=== PATIENT | male | born 1940 | race Caucasian/White ===

== ENCOUNTER 2019-09-16 07:41 | Outpatient (CLI) | payer MEDICARE, SELFPAY ==
[2019-09-16 08:43] LABS: Blood Urea Nitrogen 34 mg/dL (9-20); Calcium 9.7 mg/dL (8.4-10.2); Carbon Dioxide 28 mmol/L (22-30); Chloride 100 mmol/L (98-107); Estimated Glomerular Filt Rate 45; Glucose 93 mg/dL (75-110); Potassium 4.1 mmol/L (3.4-5.0); Sodium 137 mmol/L (137-145)
[2019-09-16 08:56] LABS: Hemoglobin A1C 6.2 % (<5.7)
== END 2019-09-16 07:42 | disposition home or self-care (01) ==
PROVIDERS: PCP Internal Medicine; Visit Provider Internal Medicine
DX: R73.03 Prediabetes (principal); I10 Essential (primary) hypertension
CPT/HCPCS: 36415; 80048; 83036

== ENCOUNTER 2019-09-26 10:30 | Outpatient (CLI) | payer MEDICARE, SELFPAY ==
--- NOTE | ~2019-09-26 | US_ITS ---
EXAMINATION: US venous doppler [facility] DATE: 09/26/2019 11:17 INDICATION: Lower limb edema. TECHNIQUE: Grayscale ultrasound images without and with compression and Doppler ultrasound images of the bilateral lower extremity veins were obtained. COMPARISON: None. FINDINGS: The visualized portions of right common femoral vein, profunda (deep) femoral vein, femoral vein, pop liteal vein, peroneal veins, posterior tibial veins, and greater saphenous vein outflow are patent. The visualized portions of left common femoral vein, profunda femoral vein, femoral vein, popliteal v ein, peroneal veins, posterior tibial veins, and greater saphenous vein outflow are patent. IMPRESSION: 1. No deep venous thrombosis. Reviewed, dictated and finalized at location A. JOCKEY
== END 2019-09-26 10:31 | disposition home or self-care (01) ==
PROVIDERS: PCP Internal Medicine; Visit Provider Internal Medicine
DX: R60.9 Edema, unspecified (principal)
CPT/HCPCS: 93970

== ENCOUNTER 2019-09-30 06:43 | Outpatient (CLI) | payer MEDICARE, SELFPAY ==
[2019-09-30 08:03] LABS: Blood Urea Nitrogen 46 mg/dL (9-20); Calcium 9.2 mg/dL (8.4-10.2); Carbon Dioxide 25 mmol/L (22-30); Chloride 108 mmol/L (98-107); Estimated Glomerular Filt Rate 39; Glucose 105 mg/dL (75-110); Potassium 4.7 mmol/L (3.4-5.0); Sodium 142 mmol/L (137-145)
== END 2019-09-30 06:44 | disposition home or self-care (01) ==
PROVIDERS: PCP Internal Medicine; Visit Provider Internal Medicine
DX: I10 Essential (primary) hypertension (principal)
CPT/HCPCS: 36415; 80048

== ENCOUNTER 2019-10-03 14:39 | Outpatient (CLI) | payer MEDICARE, SELFPAY ==
[2019-10-03 15:16] LABS: Blood Urea Nitrogen 45 mg/dL (9-20); Calcium 9.7 mg/dL (8.4-10.2); Carbon Dioxide 28 mmol/L (22-30); Chloride 103 mmol/L (98-107); Estimated Glomerular Filt Rate 49; Glucose 118 mg/dL (75-110); Potassium 4.8 mmol/L (3.4-5.0); Sodium 142 mmol/L (137-145)
== END 2019-10-03 14:40 | disposition home or self-care (01) ==
PROVIDERS: PCP Internal Medicine; Visit Provider Internal Medicine
DX: R60.9 Edema, unspecified (principal)
CPT/HCPCS: 36415; 80048

== ENCOUNTER 2019-10-16 07:00 | Outpatient (CLI) | payer MEDICARE, SELFPAY ==
[2019-10-16 08:09] LABS: Blood Urea Nitrogen 51 mg/dL (9-20); Calcium 9.3 mg/dL (8.4-10.2); Carbon Dioxide 31 mmol/L (22-30); Chloride 101 mmol/L (98-107); Estimated Glomerular Filt Rate 53; Glucose 77 mg/dL (75-110); Potassium 4.5 mmol/L (3.4-5.0); Sodium 142 mmol/L (137-145)
== END 2019-10-16 07:01 | disposition home or self-care (01) ==
LOC: ANHLAB 07:04
PROVIDERS: PCP Internal Medicine; Visit Provider Internal Medicine
DX: R60.9 Edema, unspecified (principal)
CPT/HCPCS: 36415; 80048

== ENCOUNTER 2020-02-02 07:40 | Outpatient (RCR) | payer MEDICARE, SELFPAY ==
[2020-01-26 10:32] VITALS: BMI 36.1
== END 2020-03-17 10:58 | disposition home or self-care (01) ==
LOC: ANHWOC 07:40
PROVIDERS: PCP Internal Medicine; Visit Provider Nurse Practitioner
DX: I87.2 Venous insufficiency (chronic) (peripheral) (principal); L97.819 Non-pressure chronic ulcer of other part of right lower leg with unspecified severity
CPT/HCPCS: 99212; G0463

== ENCOUNTER 2020-02-16 08:24 | Outpatient (CLI) | payer MEDICARE, SELFPAY ==
--- NOTE | ~2020-02-16 | XR_ITS ---
EXAMINATION: XR tibia fibula RT 2V EXAM DATE: 02/16/2020 08:46 INDICATION: Chronic osteomyelitis right tibia/fibula. TECHNIQUE: Right tibia/fibula frontal and lateral projections obtained and reviewed. Correlation is m matthew to right knee exam 06/29/2011. FINDINGS: There is a bandage overlying the right foot and and ankle, density small posterior and inf erior calcaneal spur. There are no bony erosions identified. Meniscal chondrocalcinosis, and moderate right knee osteoarthritis. Obscuring some of the bony and soft tissue details. IMPRESSION: No acute osseous findings. Reviewed, dictated and finalized at location B. IMPRESSION: No acute osseous findings.
== END 2020-02-16 08:25 | disposition home or self-care (01) ==
LOC: ANHIMG 08:31
PROVIDERS: PCP Internal Medicine; Visit Provider Specialist
DX: M86.661 Other chronic osteomyelitis, right tibia and fibula (principal)
CPT/HCPCS: 73590

== ENCOUNTER 2020-04-16 08:54 | Outpatient (CLI) | payer MEDICARE, SELFPAY ==
[2020-04-16 09:35] LABS: Anion Gap 5 mmol/L (8-16); Blood Urea Nitrogen 48 mg/dL (9-20); Calcium 9.6 mg/dL (8.4-10.2); Carbon Dioxide 30 mmol/L (22-30); Chloride 106 mmol/L (98-107); Cholesterol 148 mg/dL (0-200); Estimated Glomerular Filt Rate 42; Glucose 112 mg/dL (75-110); HDL Direct 42 mg/dL; Potassium 4.7 mmol/L (3.4-5.0); Sodium 141 mmol/L (137-145); Triglycerides 175 mg/dL (<150)
[2020-04-16 09:45] LABS: LDL Cholesterol Direct 81 mg/dL
[2020-04-16 10:09] LABS: Hemoglobin A1C 6.2 % (<5.7)
== END 2020-04-16 08:55 | disposition home or self-care (01) ==
LOC: ANHLAB 08:57
PROVIDERS: PCP Internal Medicine; Visit Provider Internal Medicine
DX: I10 Essential (primary) hypertension (principal); R73.02 Impaired glucose tolerance (oral); Z13.220 Encounter for screening for lipoid disorders
CPT/HCPCS: 36415; 80048; 80061; 83036

== ENCOUNTER 2020-10-19 07:55 | Outpatient (CLI) | payer MEDICARE, SELFPAY ==
[2020-10-19 08:49] LABS: Anion Gap 4 mmol/L (8-16); Blood Urea Nitrogen 36 mg/dL (9-20); Calcium 9.5 mg/dL (8.4-10.2); Carbon Dioxide 32 mmol/L (22-30); Chloride 105 mmol/L (98-107); Estimated Glomerular Filt Rate 45; Glucose 160 mg/dL (75-110); Potassium 4.5 mmol/L (3.4-5.0); Sodium 141 mmol/L (137-145)
[2020-10-19 09:01] LABS: Hemoglobin A1C 6.2 % (<5.7)
== END 2020-10-19 07:56 | disposition home or self-care (01) ==
PROVIDERS: PCP Internal Medicine; Visit Provider Internal Medicine
DX: I10 Essential (primary) hypertension (principal); R73.02 Impaired glucose tolerance (oral)
CPT/HCPCS: 36415; 80048; 83036

== ENCOUNTER 2020-11-02 14:34 | Outpatient (CLI) | payer MEDICARE, SELFPAY ==
--- NOTE | ~2020-11-02 | XR_ITS ---
EXAMINATION: XR wrist RT min 3V DATE: 11/02/2020 14:58 INDICATION: Erythema and swelling at the right wrist. TECHNIQUE: Posteroanterior, ulnar deviation, oblique, and lateral views of the right wrist were obtai thea. COMPARISON: 06/22/2017 FINDINGS: Bone alignment is normal. No fracture. Chondrocalcinosis at the wrist including at the triangular fib rocartilage complex. Additional dystrophic calcifications at the radial aspect of the second and thir d metacarpophalangeal joints along the expected location of the radial collateral ligaments. Polyarti cular osteoarthritis, moderate severity at the distal radioulnar, wrist, first carpometacarpal, first metacarpophalangeal and first interphalangeal joints and mild at the midcarpal, triscaphe and second and third metacarpophalangeal joints. Again seen are chronic lucencies with thin sclerotic margins a t the head and neck of the first metacarpal, distal radius and at the radial aspect of the third meta carpal head. These could represent degenerative subchondral cysts however location appearance along w ith the presence of previously described dystrophic calcification suggests possibility of a crystalli ne arthropathy such as gout or calcium pyrophosphate deposition (CPPD) disease. Diffuse nonspecific s oft tissue swelling about the right wrist and visualized hand. IMPRESSION: 1. Moderate polyarticular osteoarthritis. 2. Constellation of findings including chondrocalcinosis, dystrophic soft tissue calcifications and s everal chronic lytic lesions suspicious for erosions together suggestive of a crystalline arthropathy such as gout or calcium pyrophosphate deposition (CPPD) disease. Reviewed, dictated and finalized at location B. IMPRESSION: 1. Moderate polyarticular osteoarthritis. 2. Constellation of findings including chondrocalcinosis, dystrophic soft tissu e calcifications and several chronic lytic lesions suspicious for erosions toge ther suggestive of a crystalline arthropathy such as gout or calcium pyrophosph ate deposition (CPPD) disease.
[2020-11-02 16:26] LABS: CRP 2.8 mg/dL (<1.0); Uric Acid 9.3 mg/dL (3.5-8.5)
[2020-11-02 16:33] LABS: Erythrocyte Sedimentation Rate 6 mm/hr (0-20)
== END 2020-11-02 14:35 | disposition home or self-care (01) ==
PROVIDERS: PCP Internal Medicine; Visit Provider Nurse Practitioner
DX: M25.439 Effusion, unspecified wrist (principal); M19.041 Primary osteoarthritis, right hand
CPT/HCPCS: 36415; 73110; 84550; 85652; 86140

== ENCOUNTER 2020-12-16 08:09 | Outpatient (CLI) | payer MEDICARE, SELFPAY ==
--- NOTE | ~2020-12-16 | US_ITS ---
EXAMINATION: US arterial ankle brachial ind DATE: 12/16/2020 09:26 INDICATION: Right lower leg ulcer. TECHNIQUE: Segmental pressures and plethysmographic and Doppler waveforms of the brachial and lower e xtremity arteries were obtained. COMPARISON: None. FINDINGS: Right and left brachial artery pressures of 138 mm Hg and 134 mm Hg, respectively, are concordant (no rmal difference <= 30 mmHg). The right ankle-brachial index (TAMI) is 1.02 (normal >= 0.9-1.0). The right great toe-brachial index (TBI) is 0.72 (normal >= 0.65). Arterial Doppler waveforms are biphasic at the ankle. The left TAMI is 1.06. The left TBI is 0.58. Arterial Doppler waveforms are biphasic at the ankle. IMPRESSION: 1. Mildly decreased left TBI and normal left TAMI, consistent with left-sided arterial occlusive disea se. Reviewed, dictated and finalized at location A. IMPRESSION: 1. Mildly decreased left TBI and normal left TAMI, consistent with left-sided ar terial occlusive disease.
== END 2020-12-16 08:10 | disposition home or self-care (01) ==
PROVIDERS: PCP Internal Medicine; Visit Provider Nurse Practitioner
DX: R60.0 Localized edema (principal); R09.89 Other specified symptoms and signs involving the circulatory and respiratory systems
CPT/HCPCS: 93922

== ENCOUNTER 2021-04-26 06:57 | Outpatient (CLI) | payer MEDICARE, SELFPAY ==
[2021-04-26 07:46] LABS: Alanine Aminotransferase 37 U/L (4-50); Albumin Level 3.8 g/dL (3.5-5.1); Alkaline Phosphatase 70 U/L (38-126); Anion Gap 6 mmol/L (8-16); Aspartate Amino Transferase 30 U/L (17-59); Bilirubin,Total 0.6 mg/dL (0.2-1.3); Blood Urea Nitrogen 58 mg/dL (9-20); Calcium 9.5 mg/dL (8.4-10.2); Carbon Dioxide 30 mmol/L (22-30); Chloride 104 mmol/L (98-107); Cholesterol 158 mg/dL (0-200); Estimated Glomerular Filt Rate 39; Glucose 127 mg/dL (65-110); HDL Direct 40 mg/dL; Potassium 4.5 mmol/L (3.4-5.0); Sodium 140 mmol/L (137-145); Triglycerides 161 mg/dL (<150)
[2021-04-26 07:56] LABS: LDL Cholesterol Direct 82 mg/dL
[2021-04-26 08:46] LABS: Hemoglobin A1C 6.6 % (<5.7)
== END 2021-04-26 06:58 | disposition home or self-care (01) ==
PROVIDERS: PCP Internal Medicine; Visit Provider Nurse Practitioner
DX: R73.02 Impaired glucose tolerance (oral) (principal); N18.30 Chronic kidney disease, stage 3 unspecified; E78.5 Hyperlipidemia, unspecified
CPT/HCPCS: 36415; 80053; 80061; 83036

== ENCOUNTER 2021-05-04 08:43 | Outpatient (CLI) | payer MEDICARE, SELFPAY ==
--- NOTE | ~2021-05-04 | XR_ITS ---
XR hip LT min 2V 05/04/2021 09:04 Indication: Left hip pain Procedure: 2 views left hip Comparison: No prior studies for comparison. Findings: There is severe osteoarthritis of the left hip with complete loss of joint space superiorly . There is subchondral cyst formation in the femoral head with prominent marginal osteophytes and loo se bodies adjacent to the joint space. No acute fracture. No subluxation. No significant soft tissue abnormality. Impression: 1: Severe osteoarthritis of the left hip. Reviewed, dictated and finalized at location A. Impression: 1: Severe osteoarthritis of the left hip.
== END 2021-05-04 08:44 | disposition home or self-care (01) ==
LOC: ANHIMG 08:45
PROVIDERS: PCP Internal Medicine; Visit Provider Nurse Practitioner
DX: M16.12 Unilateral primary osteoarthritis, left hip (principal)
CPT/HCPCS: 73502

== ENCOUNTER 2021-06-22 13:53 | Observation (INO) | payer MEDICARE, SELFPAY ==
--- NOTE | ~2021-06-22 | XR_ITS ---
EXAMINATION: XR sm bowel follow through WS EXAM DATE: 06/24/2021 16:29 INDICATION: Right lower quadrant pain, tenderness, diarrhea. Abnormal CT scan demonstrating pericecal inflammation. TECHNIQUE: Rn Chronic radiograph was acquired. Omnipaque/water soluble solution administered for small shantell wel exam performed by radiologist Jacky Willis M.D.. Spot images of the terminal ileum were acquired. Pulsed dose reduction fluoroscopy was used with fluoroscopic time of 0.1 minutes. The DAP for this procedure was 385 Gycm2. A total of 21 images obtained for the exam. Correlation is made to CT abdo men pelvis 06/22/2021. FINDINGS: Ileal and jejunal fold patterns are normal. Several jejunal diverticula identified. There is no small bowel wall thickening or mass effect displacing small bowel. There are no intraluminal filling defects identified. There is no small bowel dilation. Terminal ileum is normal in appearanc e. Contrast reached the colon between 15 and 30 minutes time, normal. CT demonstrated cecal/pericecal phlegmonous process. A normal appendix is not identified on the CT s can, nor is an abnormal dilated obstructed appendix. Terminal ileum unremarkable on this study. There fore, pathology the appendix should be considered, such as subacute appendicitis or carcinoid of the appendix. There is no right lower quadrant drainable abscess on that CT. Patient had IV antibiotics h anging with him for the procedure. Assuming he does better clinically, consider 2 week follow-up CT s can to reevaluate this phlegmonous process. IMPRESSION: Several jejunal diverticula. Otherwise unremarkable small bowel exam. See discussion abo ve. Reviewed, dictated and finalized at location A. IMPRESSION: Several jejunal diverticula. Otherwise unremarkable small bowel ex am. See discussion above.
--- NOTE | ~2021-06-22 | CT_ITS ---
EXAMINATION: CT abdomen pelvis wo con DATE: 06/22/2021 18:35 INDICATION: Right lower quadrant abdominal and flank pain for one week. Left hip pain for 6 months. TECHNIQUE: Computed tomography (CT) of the abdomen and pelvis was performed without intravenous contr ast. Automated exposure control and iterative reconstruction technique were employed. Exam dose: 158 6.19 mGy-cm total exam DLP. COMPARISON: 07/30/[address] scan. FINDINGS: There is multifocal bibasilar discoid atelectasis and/or scarring. Normal heart size. Marcelo nary artery calcifications. No pericardial or pleural effusion. Status post cholecystectomy. The liver, spleen, pancreas, adrenal glands are unremarkable. No bile duct or pancreatic duct dilata tion. 3.5 cm right renal exophytic cyst. At least two smaller right renal probable cysts are noted. Diffuse left renal atrophy and probable small left renal cysts. There is prostate enlargement. Multiple urinary bladder diverticula. Bilateral fat containing inguinal hernias, right greater than left. There is distal and terminal ileal irregularity and thickening with surrounding fat infiltration, wi th proximal small bowel air fluid levels. Consider Crohn's disease or other inflammatory or infectio us process, lymphoma, small bowel carcinoma. There are numerous diverticula of the sigmoid and descending colon; no evidence of diverticulitis. No bowel obstruction of intraperitoneal free air. Normal caliber of the abdominal aorta. No intraperitoneal or retroperitoneal or pelvic mass lesion o r lymphadenopathy or ascites. 1.3 x 2.4 cm osteosclerotic lesion of left side of T7. 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 Bilateral sacroiliac ankylosis. Bilateral severe hip osteoarthritis, left greater than right. IMPRESSION: Prominent inflammatory change at the distal and terminal ileum, with surrounding inflamm atory change; differential diagnosis includes Crohn's disease, other inflammatory or infectious proce ss, lymphoma, small bowel carcinoma. Reviewed, dictated and finalized at Location A. Reviewed, dictated and finalized at location A. IMPRESSION: Prominent inflammatory change at the distal and terminal ileum, wi th surrounding inflammatory change; differential diagnosis includes Crohn's dis ease, other inflammatory or infectious process, lymphoma, small bowel carcinoma .
[2021-06-22 15:51] VITALS: BP 138/72; PULSE 75; RESP 18; TEMP 36.1; O2SAT 100
[2021-06-22 16:07] LABS: Hematocrit 51.7 % (42.0-52.0); Hemoglobin 16.3 g/dL (14.0-18.0); Mean Corpuscular HGB Conc 31.5 g/dl (32-36); Mean Corpuscular Volume 98.5 fl (80-100); Mean Platelet Volume 10.6 fl (7.4-10.4); Platelet Count Result 201 k/mm3 (150-375); Red Blood Count 5.25 M/mm3 (4.6-6.20); Red Cell Distribution Width 16.8 % (11.5-14.5); White Blood Count 14.2 K/mm3 (4.5-10.0)
[2021-06-22 16:20] LABS: Alanine Aminotransferase 37 U/L (4-50); Albumin Level 3.7 g/dL (3.5-5.1); Alkaline Phosphatase 73 U/L (38-126); Anion Gap 8 mmol/L (8-16); Aspartate Amino Transferase 23 U/L (17-59); Bilirubin,Total 1.2 mg/dL (0.2-1.3); Blood Urea Nitrogen 47 mg/dL (9-20); Carbon Dioxide 27 mmol/L (22-30); Chloride 107 mmol/L (98-107); Estimated CRCL calculation 53 ml/min; Estimated Glomerular Filt Rate 49; Glucose 108 mg/dL (65-110); Lipase 41 U/L (23-300); Potassium 4.8 mmol/L (3.4-5.0); Sodium 142 mmol/L (137-145)
[2021-06-22 16:39] LABS: Band Neutrophils Percent 4 % (0-6); Lymphocytes Absolute Manual 0.56 K/mm3 (1.1-4.5); Metamyelocytes Percent 1 %; Monocytes Absolute Manual 0.28 K/mm3 (0.1-0.90); Monocytes Percent Manual 2 % (3-9); Neutrophils Percent Manual 89 % (46-73); Platelet Estimate Adequate (Adequate); Total Cells Counted 100; Toxic Granulation Present (NORMAL)
[2021-06-22 18:00] VITALS: BP 135/78; PULSE 97; RESP 18; TEMP 36.6; O2SAT 96
--- NOTE | 2021-06-22 18:23 | PC.NURSE ---
MD aware of elevated BUN and creatinine. Verbal order to cancel CT with contrast, order without contrast.
[2021-06-22 18:35] LABS: Add Urine Microscopic? YES; Appearance Urine Cloudy (Clear); Bilirubin Urine Negative (Negative); Blood Urine Negative (Negative); Color Urine Yellow (Yellow); Glucose Urine UA Negative (Negative); Ketones Urine Negative (Negative); Leukocyte Esterase Ur Negative LEU/UL (Negative); Mucus Urine Rare /lpf; Nitrate Urine Negative (Negative); Protein Urine Negative (Negative); Specific Grav Ur 1.018 (1.001-1.035); Squamous Epithelial Cell Urine Occasional /hpf (Few); Urobilinogen Urine Negative mg/dL (<2.0); WBC Urine 0-3 /hpf
--- NOTE | 2021-06-22 20:21 | ED.ABDPAIN ---
HPI - Abdominal Pain General Chief Complaint: Abdominal Pain Stated Complaint: hip and abd pain Time Seen by Provider: 06/22/21 17:40 Source: patient Mode of arrival: ambulatory Limitations: no limitations History of Present Illness HPI narrative: 80-year-old with a history of hypertension, diabetes, CKD, osteoarthritis of his left hip here with complaints of right lower abdominal pain for past 1 week. He denies any nausea, vomiting or diarrhea. No history of fever or chills. He states he has constant pain in his right lower abdomen. MD elicited complaint: abdominal pain Pertinent past history: none Onset (ago): week(s) (1) Location: RLQ Severity: moderate Quality: aching Radiation: none Migration to: no migration Exacerbating factors: nothing Relieving factors: nothing Related Data Home Medications Medication Instructions Recorded Confirmed aspirin 325 mg tablet,delayed 325 mg PO DAILY 09/17/19 05/04/21 release omega-3 fatty acids 1,000 mg 1,000 mg PO BID 09/17/19 05/04/21 capsule finasteride 5 mg tablet 5 mg PO DAILY 09/22/19 05/04/21 niacin 500 mg tablet 500 mg PO DAILY tablet 05/04/21 05/04/21 Allergies Allergy/AdvReac Type Severity Reaction Status Date / Time No Known Allergies Allergy Verified 06/22/21 18:07 Review of Systems Review of Systems: All systems reviewed & are unremarkable except as noted in HPI and below Constitutional: Constitutional: Reports no additional constitutional complaints Eyes: Eyes: Reports no additional eye complaints ENT: Reports system reviewed and no additional complaints, except as documented Cardiovascular: Cardiovascular: Reports no additional cardiovascular complaints Respiratory: Respiratory: Reports no additional respiratory complaints Gastrointestinal: Gastrointestinal: Reports as per HPI Genitourinary: Genitourinary: Reports no additional male genitourinary complaints Musculoskeletal: Musculoskeletal: Reports as per HPI Integumentary/Breasts: Skin/Breast: Reports system reviewed and no additional complaints, except as docu [facility] Past Medical History Medical History Carpal tunnel syndrome Edema Essential hypertension IGT (impaired glucose tolerance) Lesion of spleen Family History Family History Father Acute myocardial infarction Other Cerebrovascular accident Hypertension Social History Social History Smoking packs per day: 2 Smoking cigarettes per day: 40.0 Years smoked: 4 Smoking pack-years: 8.00 Smoking status: Former smoker Tobacco type: cigarettes Second hand tobacco smoke exposure: Yes Smoking end date: 08/20/1964 Alcohol intake: never Gender identity (if verbalized by the patient): Male Exam Narrative: GENERAL: Well-appearing, Obese, and in no acute distress. Very hard of hearing HEAD: Normocephalic, atraumatic. EYES: PERRLA and EOMI. NECK: Supple. CHEST: Clear to auscultation. No respiratory distress. HEART: Regular rate and rhythm. No murmur heard. Normal peripheral pulses. ABDOMEN: Truncal obesity is normal., No hernias noted, tenderness in the right lower abdomen. EXTREMITIES: Normal range of motion. No edema. SKIN: Warm, dry, no rash. NEURO: No focal deficits. Alert and oriented x3. PSYCH: Normal mood and affect. Course Course Emergency Course: Discussed with Dr. Lane as well as Dr. Pérez will see the patient in consult. Informed patient about his lab work, CT findings and is agreeable for admission. Discussed with hospitalist agreed to admit the patient. Vital Signs Vital signs: Vital Signs Temperature 36.1 C L 06/22/21 15:51 Pulse Rate 75 06/22/21 15:51 Respiratory Rate 18 06/22/21 15:51 Blood Pressure 138/72 06/22/21 15:51 Pulse Oximetry 100 06/22/21 15:51 Temperature 36.6 C 06/22/21 18:00 Pul
[2021-06-22] MEDS: SODIUM CHLORIDE 0.9% IV 1,000 ML 75 ML IV CONT (21:08)
--- NOTE | 2021-06-22 22:15 | PM.IMHP ---
H&P: HPI History of Present Illness Date/Time: 06/22/21 22:15 Chief Complaint: Right lower quadrant abdominal pain. Narrative: This is an 80-year-old male with history of hypertension, dyslipidemia, prediabetes, chronic kidney disease, and benign prostatic hyperplasia who presented to the emergency department earlier today via private vehicle from home for evaluation of right lower quadrant abdominal pain. He has had pain in his right lower quadrant for approximately 1 week and describes a constant aching pain in that area although he frequently has sharp shooting pains there as well. It is worse with movement, palpation, and going over bumps when riding in the car. He takes Tylenol for his chronic left hip pain due to severe osteoarthritis and unfortunately that has not provided him with much benefit. His appetite has not been great for a couple of days but he denies nausea and vomiting. He reports a normal bowel movement 2 days ago on Sunday. He has not had fever, chills, or sweats. No nausea or vomiting. He has not noticed blood or mucus in the stool. No significant abdominal distension. No significant belching or flatus. A CT of the abdomen pelvis done on arrival to the emergency department demonstrated prominent inflammatory change at the distal and terminal ileum with surrounding inflammatory changes with a differential diagnosis to include Crohn's disease, other inflammatory infectious process, lymphoma, or small bowel carcinoma. He denies sick contacts, recent travel, and recent antibiotic use. No personal or family history of inflammatory bowel disease. Weight has remained stable in fact he has gained some weight this year due to being less active as a result of his chronic hip pain. He does have a history of colon polyps with his last colonoscopy being approximately 10 years ago if not a bit longer. He has not noticed any blood or mucus in the stool. No lymphadenopathy. Review of Systems Review of Systems: Twelve systems were reviewed. No recent cold or flu symptoms. He denies headache. No vertigo. No chest pain or shortness of breath. No cough. He has had significant pain in his left hip which has gotten worse over the past 1 year. He now avoids steps and he has having pain when trying to get up into his truck. He needs to hold on to shopping carts when walking and does ambulate with a limp due to the pain. He has been taking Tylenol arthritis with only some benefit. He has not yet seen an orthopedic surgeon for possible replacement. No dysuria, hematuria, urgency, hesitancy, or urinary retention. Recent arterial ankle brachial index demonstrated mildly decreased left TBI abnormal left TAMI. The patient denies claudication. Except as documented, all other systems were reviewed and are negative. [facility] Past Medical History Medical History (Updated 06/22/21 @ 23:06 by Laina Petty PA-C) Actinic keratosis Benign prostatic hyperplasia Bilateral primary osteoarthritis of hip Bladder stones Chronic kidney disease, stage 3 Baseline creatinine ranges between 1.40 and 1.60. 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 History of transurethral resection of prostate History of ventral hernia repair (2005) Status post excision of lipoma Anterior abdominal wall. Family History Family History (Updated 06/22/21 @ 22:33 by Laina Petty PA-C) Father Acute myocardial infarction Mother Breast cancer Hypertension Si
--- NOTE | 2021-06-22 22:40 | ADMGEN ---
This patient, Kishore Koroma Sr., was admitted to Medical Room 241-01. Patient/family oriented to hospital policies and general routines including ID bracelet, bed and alarms, visiting hours, pain management, procedures, bathroom and other care routines, personal items, smoking policy, room service/diet, and visiting hours. Information on how to activate the Rapid Response Team has been discussed. Patient/Family are encouraged to report perceived risks to care and to ask questions if they do not understand what they are told or what they should do.
[2021-06-22 23:08] VITALS: BP 148/97; PULSE 90; RESP 24; TEMP 36.2; O2SAT 95; BMI 35.3
[2021-06-23] MEDS: HYDROcodone/acetaminophen (*CRX) 5-325 MG TABLET 1 TAB PO (03:16)
[2021-06-23 05:10] VITALS: BP 125/82; PULSE 73; RESP 16; TEMP 36.1; O2SAT 94
[2021-06-23 05:31] LABS: Basophils Percent Auto 0.4 % (0.2-1.2); Eosinophils Percent Auto 0.3 % (0-4.4); Hematocrit 44.8 % (42.0-52.0); Hemoglobin 14.4 g/dL (14.0-18.0); Immature Granulocyte Absolute 0.14 K/mm3 (0.00-0.031); Immature Granulocyte Percent A 1.5 % (0-0.5); Lymphocytes Absolute Auto 0.62 K/mm3 (0.9-3.2); Lymphocytes Percent Auto 6.4 % (18.3-44.2); Mean Corpuscular HGB Conc 32.1 g/dl (32-36); Mean Corpuscular Hemoglobin 31.4 pg (26-34); Mean Corpuscular Volume 97.6 fl (80-100); Monocytes Absolute Auto 0.6 K/mm3 (0.1-0.6); Monocytes Percent Auto 6.6 % (2.6-8.5); Neutrophils Absolute Auto 8.2 K/mm3 (1.3-6.7); Neutrophils Percent Auto 84.8 % (45.5-73.1); Platelet Count Result 180 k/mm3 (150-375); Red Blood Count 4.59 M/mm3 (4.6-6.20); Red Cell Distribution Width 16.8 % (11.5-14.5); White Blood Count 9.6 K/mm3 (4.5-10.0)
[2021-06-23 05:46] LABS: Alanine Aminotransferase 28 U/L (4-50); Albumin Level 2.8 g/dL (3.5-5.1); Alkaline Phosphatase 56 U/L (38-126); Anion Gap 7 mmol/L (8-16); Aspartate Amino Transferase 21 U/L (17-59); Blood Urea Nitrogen 49 mg/dL (9-20); Calcium 9.1 mg/dL (8.4-10.2); Carbon Dioxide 28 mmol/L (22-30); Chloride 105 mmol/L (98-107); Estimated CRCL calculation 52 ml/min; Estimated Glomerular Filt Rate 49; Glucose 101 mg/dL (65-110); Potassium 5.1 mmol/L (3.4-5.0); Sodium 140 mmol/L (137-145)
[2021-06-23 05:51] LABS: Magnesium 2.2 mg/dL (1.6-2.3)
[2021-06-23 05:58] LABS: Prealbumin 14.7 mg/dL (17.6-36.0)
[2021-06-23 06:23] LABS: CRP 21.2 mg/dL (<1.0)
[2021-06-23] MEDS: ASPIRIN 325 MG ENTERIC TABLET PO (08:02)
[2021-06-23] MEDS: NIACIN SA 500 MG TABLET PO (08:02)
[2021-06-23] MEDS: FUROSEMIDE 40 MG TABLET PO (08:02)
[2021-06-23] MEDS: FINASTERIDE 5 MG TABLET PO (08:02)
[2021-06-23] MEDS: OMEGA 3 POLYUNSAT FATTY ACIDS 1 GM CAP PO ×2 (08:02→16:34)
[2021-06-23] MEDS: lisinopriL 20 MG TABLET PO (08:02)
[2021-06-23 08:08] VITALS: O2SAT 92
[2021-06-23 12:46] LABS: Anion Gap 7 mmol/L (8-16); Blood Urea Nitrogen 47 mg/dL (9-20); Calcium 9.4 mg/dL (8.4-10.2); Carbon Dioxide 28 mmol/L (22-30); Chloride 107 mmol/L (98-107); Estimated CRCL calculation 55 ml/min; Estimated Glomerular Filt Rate 53; Glucose 98 mg/dL (65-110); Potassium 5.8 mmol/L (3.4-5.0); Sodium 142 mmol/L (137-145)
[2021-06-23 14:00] VITALS: BP 150/84; PULSE 87; RESP 20; TEMP 36.4; O2SAT 99
--- NOTE | 2021-06-23 14:05 | PM.IMPN ---
Progress Note: A&P Assessment and Plan (1) Abdominal pain, acute, right lower quadrant: Code(s): R10.31 - Right lower quadrant pain Status: Acute (2) Ileitis: Code(s): K52.9 - Noninfective gastroenteritis and colitis, unspecified Status: Acute (3) Hyperkalemia: Code(s): E87.5 - Hyperkalemia Status: Acute (4) Leukocytosis: Qualifiers: Leukocytosis type: unspecified Qualified Code(s): D72.829 - Elevated white blood cell count, unspecified Code(s): D72.829 - Elevated white blood cell count, unspecified Status: Resolved (5) Left hip pain: Code(s): M25.552 - Pain in left hip Status: Acute (6) Obesity (BMI 30-39.9): Code(s): E66.9 - Obesity, unspecified Status: Acute (7) Pre-diabetes: Code(s): R73.03 - Prediabetes Status: Acute (8) Essential hypertension: Code(s): I10 - Essential (primary) hypertension Status: Acute (9) Chronic kidney disease (CKD), stage III (moderate): Qualifiers: Chronic kidney disease stage 3 subtype: stage 3b (GFR 30-44) Qualified Code(s): N18.32 - Chronic kidney disease, stage 3b Code(s): N18.30 - Chronic kidney disease, stage 3 unspecified Status: Acute (10) Hyperlipidemia: Qualifiers: Hyperlipidemia type: unspecified Qualified Code(s): E78.5 - Hyperlipidemia, unspecified Code(s): E78.5 - Hyperlipidemia, unspecified Status: Acute Additional Plan 1. Right lower pain secondary to ileus: -patient CT evidence of ileitis complains of right lower extremity pain, with no nausea, vomiting or diarrhea reported -He is currently being treated for infectious causes related to ileitis however is being evaluated for possible inflammatory and malignant causes as well. - sent for ESR, CRP and Procalcitonin for this purpose - Patient planned for Colonoscopy tomorrow as per GI recommendations - continue to monitor 2. Hyperkalemia: - 5.1>5.8; will give one dose of PO Kayexalate and redraw K after patient has a BM; otherwise, repeat K at 4pm - hold Lisinopril for now and can resume at the time of discharge - BP stable for now; will hold off on any PRN meds, until need be. 3. Preparation for colonoscopy: - in preparation for colonoscopy, will hold ASA 325 (will discuss with GI as well) - start Heparin or Prophylaxis purposes however hold the last dose in AM 11/, can resume in evening 11, after procedure DISPOSITION: admitted to [facility] 06/23/2021; continues to require in hospital stay for Colonoscopy purposes- if no malignancy would start patient on PO Cipro and Flagyl and discharge Time Spent With Patient Time with patient: 25 - 35 minutes Subjective Date/time seen: 06/23/21 14:05 Interval history: 80-year-old male with past medical history significant for hypertension, hyperlipidemia, prediabetes, CKD and benign prostatic hyperplasia presented with complaints of abdominal pain. Patient being in this case of ileitis possibly infectious but concerns for inflammatory or malignant possibilities as well. The patient is continuing to receive IV Zosyn and is also being followed by GI. She plans to do colonoscopy in a.m. tomorrow. In addition patient is noted to hyperkalemia at 5.1 which has up trended although we will 5.8 for which reason he will getting Kayexalate and Lisinopril will be held. Repeat potassium level later in the day. Review of Systems Review of Systems: A 10 point review of system was conducted which was otherwise negative Exam Narrative: General: Well-developed elderly male lying on his right side in bed in no acute distress. He is slightly hard of hearing. Weight: 127 kg. BMI: 36.9. HEENT: PERRL, EOMI. Sclerae anicteric. Conjunctiva mildly injected. Tacky mucous membranes. Neck: Supple. Exam difficult due to positioning but no obvious lymphadenopathy. Respiratory: Respirations are nonlabored. Lungs are clear to auscultation bilaterall
[2021-06-23] MEDS: SODIUM POLYSTYRENE SULFONONATE 15 GM/60 ML BTL PO (14:10)
[2021-06-23 14:51] LABS: Erythrocyte Sedimentation Rate 24 mm/hr (0-20)
[2021-06-23 14:54] LABS: CRP 21.9 mg/dL (<1.0)
--- NOTE | 2021-06-23 15:29 | WPDGICN ---
Assessment and Plan Assessment and plan (1) Right lower quadrant abdominal pain: Code(s): R10.31 - Right lower quadrant pain Status: Acute Assessment and Plan: will assess with colonoscopy given abnormal finding by CT scan (2) Ileitis: Code(s): K52.9 - Noninfective gastroenteritis and colitis, unspecified Status: Acute Assessment and Plan: ddx could be inflammatory, infectious, ibd but unusual with acute finding, etc colonoscopy tomorrow (3) Abnormal CT scan, colon: Code(s): R93.3 - Abnormal findings on diagnostic imaging of other parts of digestive tract Status: Acute (4) Leukocytosis: Qualifiers: Leukocytosis type: unspecified Qualified Code(s): D72.829 - Elevated white blood cell count, unspecified Code(s): D72.829 - Elevated white blood cell count, unspecified Status: Resolved Assessment and Plan: no diarrhea, wbc today is normal had elevated crp monitor (5) Hyperkalemia: Code(s): E87.5 - Hyperkalemia Status: Acute Assessment and Plan: on treatment now (6) Bilateral primary osteoarthritis of hip: Code(s): M16.0 - Bilateral primary osteoarthritis of hip Status: Acute (7) Essential hypertension: Code(s): I10 - Essential (primary) hypertension Status: Acute (8) Chronic kidney disease, stage 3: Code(s): N18.30 - Chronic kidney disease, stage 3 unspecified Status: Acute Assessment and Plan: monitor GI Consult Note Consult date/time: 06/23/21 15:29 Reason for consult: RLQ pain, abnormal colon by CT scan HPI: Kishore Koroma Sr. is a 80 year old male with history of hypertension, chronic kidney disease, CKD baseline creatinine 1.4-1.7, and benign prostatic hyperplasia who came to the emergency department via private vehicle from home for evaluation of right lower quadrant abdominal pain that has been going on for 1.5 week, describes as constant aching pain worse after moving around, better if lying down on right side. He also has chronic left hip pain due to severe osteoarthritis on tylenol as needed. Denies diarrhea, blood in stools, weight loss, fever or nausa. ER evaluation with CT of the abdomen pelvis that was reviewed, showed prominent inflammatory change at the distal and terminal ileum with surrounding inflammatory changes with a differential diagnosis to include Crohn's disease, other inflammatory infectious process, lymphoma, or small bowel carcinoma. He had a colonoscopy in the past with polyp. Had wbc 14k today normal, also high CRP. Started on iv zosyn. Review of Systems Constitutional: Constitutional: Denies headache(s) and Denies weakness Eyes: Eyes: Denies blurry vision ENT: Reports Normal hearing present, Denies headache(s) and Denies neck pain Cardiovascular: Cardiovascular: Denies chest pain and Denies dyspnea Respiratory: Respiratory: Denies dyspnea Gastrointestinal: Gastrointestinal: Reports no additional gastrointestinal complaints Genitourinary: Genitourinary: Denies dysuria Musculoskeletal: Musculoskeletal: Denies neck pain Integumentary/Breasts: Skin/Breast: Denies dry skin Neurologic: Reports Normal hearing present, Denies headache(s) and Denies weakness Psychiatric: Psychiatric: Denies anxiety Endocrine: Endocrine: Denies change in body appearance Hematologic/Lymphatic: Hematologic/Lymphatic: Denies easy bleeding Allergic/Immunologic: Allergic/Immunologic: Denies urticaria PMF Past Medical History Medical History (Updated 06/23/21 @ 15:34 by Jorge Leung MD) Abnormal CT scan, colon Actinic keratosis Benign prostatic hyperplasia Bilateral primary osteoarthritis of hip Bladder stones Chronic kidney disease, stage 3 Baseline creatinine ranges between 1.40 and 1.60. Colon polyps Dyslipidemia Essential hypertension Gastroesophageal reflux disease Impaired glucose tolerance Kidney stones Osteoarthritis Pre-michael
[2021-06-23 15:50] LABS: Potassium 4.7 mmol/L (3.4-5.0)
[2021-06-23] MEDS: polyethylene glycoL 3350 238 GM BOTTLE PO (16:34)
[2021-06-23] MEDS: BISACODYL 5 MG TABLET EC 20 MG PO (16:34)
[2021-06-23 19:20] VITALS: BP 107/86; PULSE 88; RESP 18; TEMP 35.9; O2SAT 97
[2021-06-23] MEDS: HEPARIN SODIUM 5,000 UNITS/ML VIAL 5000 UNITS SUB-Q (22:48)
--- NOTE | 2021-06-23 23:00 | PM.CNGS ---
Assessment and Plan Assessment and plan (1) Abdominal pain, acute, right lower quadrant: Onset Date: ~06/16/21 Code(s): R10.31 - Right lower quadrant pain Status: Acute Assessment and Plan: this is the main reason we are asked to cm. At this time no surgical indications are present. However, we will follow along in view of the possibility of progression to obstruction or the need after diagnosis of bowel resection. Hopefully Dr. Pérez will be able to get past the ileocecal valve & see the distal ileum. Perhaps he will be able to get biopsies there. If no significant abnormality were found and the patient does not appear to be obstructed, he could consider discharge on appropriate medications and probably avoiding NSAIDs (since sometimes that can cause inflammation of the ileum). ( patient may have been unknowingly taking significant NSAID's as when taking his Tylenol arthritis for his hip osteoarthritis). Outpatient capsule endoscopy may be helpful to delineate possible small-bowel tumor or other abnormality if unable to be reached by colonoscopy. We could then follow up the patient as an outpatient if needed. (2) Leukocytosis: Onset Date: ~06/22/21 Qualifiers: Leukocytosis type: unspecified Qualified Code(s): D72.829 - Elevated white blood cell count, unspecified Code(s): D72.829 - Elevated white blood cell count, unspecified Status: Resolved Assessment and Plan: Back to normal this morning so may be resolving. (3) Bilateral primary osteoarthritis of hip: Code(s): M16.0 - Bilateral primary osteoarthritis of hip Status: Acute Assessment and Plan: May be interested in Orthopedic surgery consult as an outpatient. (4) Pre-diabetes: Code(s): R73.03 - Prediabetes Status: Acute (5) Ileitis: Onset Date: ~06/23/21 Code(s): K52.9 - Noninfective gastroenteritis and colitis, unspecified Status: Acute Assessment and Plan: This was 1st noted on his CT scan in the ED last night. I agree with proceeding toward colonoscopy with possible intubation of the distal ileum for evaluation and biopsy. Also inflammatory / Immunological labs for IBD could be sent depending on the findings after colonoscopy (6) Right lower quadrant abdominal pain: Code(s): R10.31 - Right lower quadrant pain Status: Acute Assessment and Plan: Most likely secondary to ileitis due to inflammatory, ulcerative, or neoplastic disease. Will await further workup. (7) Benign prostatic hyperplasia: Code(s): N40.0 - Benign prostatic hyperplasia without lower urinary tract symptoms Status: Acute (8) Chronic kidney disease, stage 3: Code(s): N18.30 - Chronic kidney disease, stage 3 unspecified Status: Acute Assessment and Plan: follow renal function carefully as further workup proceeds. Patient may need continued IV fluids to keep from getting dehydrated. (9) Essential hypertension: Onset Date: Unknown Code(s): I10 - Essential (primary) hypertension Status: Acute Assessment and Plan: On lisinopril at home, Rx per hospitalist (10) Body mass index (BMI) of 34.0 to 34.9 in adult: Code(s): Z68.34 - Body mass index [BMI] 34.0-34.9, adult Status: Acute History of Present Illness Consult details Consult date: 06/23/21 Reason for consult: abdominal pain ( Mainly right lower quadrant) Narrative: The patien is a 80 year old Obese White male with history of hypertension, chronic kidney disease, (CKD baseline creatinine 1.4-1.7), and benign prostatic hyperplasia who came to the emergency department via private vehicle from home for evaluation of right lower quadrant abdominal pain that has been going on for about 1 week. He describes as constant aching pain which worse after moving around, and better if lying down on right side. He also has chronic left hip pain due to
[2021-06-24] VITALS (8 sets, daily range): BP systolic 111–144; BP diastolic 55–91; PULSE 69–106; RESP 16–24; TEMP 36–36.4; O2SAT 94–100
[2021-06-24] MEDS: MAGNESIUM CITRATE 300 ML BTL PO (02:46)
[2021-06-24 04:55] LABS: Basophils Absolute Auto 0.1 K/mm3 (0.0-0.1); Basophils Percent Auto 0.5 % (0.2-1.2); Eosinophils Absolute Auto 0.1 K/mm3 (0-0.3); Eosinophils Percent Auto 0.5 % (0-4.4); Hematocrit 51.1 % (42.0-52.0); Immature Granulocyte Absolute 0.17 K/mm3 (0.00-0.031); Immature Granulocyte Percent A 1.6 % (0-0.5); Lymphocytes Absolute Auto 0.54 K/mm3 (0.9-3.2); Lymphocytes Percent Auto 5.2 % (18.3-44.2); Mean Corpuscular HGB Conc 31.3 g/dl (32-36); Mean Corpuscular Hemoglobin 30.8 pg (26-34); Mean Corpuscular Volume 98.5 fl (80-100); Mean Platelet Volume 10.6 fl (7.4-10.4); Monocytes Absolute Auto 0.8 K/mm3 (0.1-0.6); Monocytes Percent Auto 7.2 % (2.6-8.5); Neutrophils Absolute Auto 8.9 K/mm3 (1.3-6.7); Platelet Count Result 186 k/mm3 (150-375); Red Blood Count 5.19 M/mm3 (4.6-6.20); Red Cell Distribution Width 16.3 % (11.5-14.5); White Blood Count 10.5 K/mm3 (4.5-10.0)
[2021-06-24 05:08] LABS: Potassium 3.7 mmol/L (3.4-5.0)
[2021-06-24 05:36] LABS: Alanine Aminotransferase 36 U/L (4-50); Albumin Level 3.3 g/dL (3.5-5.1); Alkaline Phosphatase 74 U/L (38-126); Anion Gap 10 mmol/L (8-16); Aspartate Amino Transferase 28 U/L (17-59); Bilirubin,Total 0.9 mg/dL (0.2-1.3); Blood Urea Nitrogen 42 mg/dL (9-20); Calcium 9.8 mg/dL (8.4-10.2); Carbon Dioxide 23 mmol/L (22-30); Chloride 105 mmol/L (98-107); Estimated CRCL calculation 46 ml/min; Estimated Glomerular Filt Rate 42; Glucose 111 mg/dL (65-110); Sodium 138 mmol/L (137-145)
[2021-06-24] MEDS: NIACIN SA 500 MG TABLET PO (08:28)
[2021-06-24] MEDS: OMEGA 3 POLYUNSAT FATTY ACIDS 1 GM CAP PO ×2 (08:28→16:24)
[2021-06-24] MEDS: FINASTERIDE 5 MG TABLET PO (08:29)
[2021-06-24] MEDS: FUROSEMIDE 40 MG TABLET PO (08:29)
--- NOTE | 2021-06-24 11:33 | PM.PNGS ---
Progress Note: A&P Assessment and Plan (1) Ileitis: Onset Date: ~06/23/21 Code(s): K52.9 - Noninfective gastroenteritis and colitis, unspecified Status: Acute Assessment and Plan: unknown etiology, vivian prep, no s/s obstruction, await results of colonoscopy Subjective Subjective Date/Time Seen: 06/24/21 11:33 feels much better today, vivian prep for colonoscopy, multiple loose stools, no N/V, pain better Review of Systems Review of Systems: All systems reviewed & are unremarkable except as noted in HPI and below Constitutional: Constitutional: Denies chills, Reports fatigue, Denies fever(s), Denies poor appetite and Reports weakness Exam Const: General: cooperative, comfortable, no acute distress and ill appearing Nutritional Appearance: obese Orientation/consciousness: patient oriented x3 Limitations: no limitations Resp: Effort & Inspection: normal respiratory effort Auscultation: clear to auscultation bilaterally Cardio: Rate: regular rate Rhythm: regular rhythm GI: Inspection: normal to inspection and distended GI Palp: Yes Soft to palpation, Yes Tenderness to palpation present (GI), No Guarding due to palpation present (GI) and No Rigid due to palpation Other: soft, sl dist, mild TTP RLQ Objective Data Vital Signs Vital Signs: Vital Signs - 24 hr 06/23/21 14:00 06/23/21 19:20 06/24/21 03:17 Temperature 36.4 C L 35.9 C L 36.0 C L Pulse Rate 87 88 92 Respiratory Rate 20 18 18 Blood Pressure 150/84 H 107/86 128/75 Pulse Oximetry 99 97 97 Intake/Output Intake/Output: Intake & Output 06/21/21 06/22/21 06/23/21 06/24/21 23:59 23:59 23:59 23:59 Intake Total 50 2827 700 Output Total 1610 Balance 50 1217 700 Meds/Results Medications: Active Medications Generic Name Dose Route Start Last Admin Trade Name Freq PRN Reason Stop Dose Admin Acetaminophen 650 mg 06/22/21 20:26 Acetaminophen 325 Mg Tablet PO Q4H PRN Mild Pain (1-3) or Fever Hydrocodone Bitart/Acetaminophen 1 tab 06/22/21 23:08 06/23/21 03:16 Hydrocodone/Acetaminophen (*Crx) 5-325 Mg Tablet PO 1 tab Q6H PRN Administration Pain Rated 4-6 Aspirin 325 mg 06/23/21 09:00 06/23/21 08:02 Aspirin 325 Mg Enteric Tablet PO 325 mg DAILY SAMIA Administration Finasteride 5 mg 06/23/21 09:00 06/24/21 08:29 Finasteride 5 Mg Tablet PO 5 mg DAILY SAMIA Administration Fish Oil 1 gm 06/23/21 09:00 06/24/21 08:28 [place] 3 Polyunsat Fatty Acids 1 Gm Cap PO 1 gm BID SAMIA Administration Furosemide 40 mg 06/23/21 09:00 06/24/21 08:29 Furosemide 40 Mg Tablet PO 40 mg DAILY SAMIA Administration Heparin Sodium (Porcine) 5,000 units 06/23/21 21:00 06/24/21 08:42 Heparin Sodium 5,000 Units/Ml Vial SUB-Q Not Given Q12HR SAMIA Piperacillin/Tazobactam/Dextrose 3.375 gm in 50 mls @ 100 mls/hr 06/23/21 03:00 06/24/21 10:00 Zosyn 3.375 Gm/D5w 50ml Pm IVPB Infused Q6H SAMIA Infusion Lactated Ringer's 1,000 mls @ 150 mls/hr 06/24/21 07:40 Lr - Lactated Ringers Iv IV CONT .Q6H40M SAMIA Lisinopril 20 mg 06/23/21 09:00 06/23/21 08:02 Lisinopril 20 Mg Tablet PO 20 mg BID SAMIA Administration Morphine Sulfate 4 mg 06/22/21 20:26 Morphine Sulfate (*Crx) 4 Mg/Ml Inj IV PUSH Q2H PRN Pain Rated 7-10 Niacin 500 mg 06/23/21 09:00 06/24/21 08:28 Niacin Sa 500 Mg Tablet PO 500 mg QAM SAMIA Administration Ondansetron HCl 4 mg 06/24/21 03:00 Ondansetron Inj 4 Mg/2 Ml Vial IV PUSH Q6H PRN Nausea And Vomiting Radiology Results: ITS Impressions Abdomen/Pelvis CT 06/22/21 18:41 IMPRESSION: Prominent inflammatory change at the distal and terminal ileum, with surrounding inflammatory change; differential diagnosis includes Crohn's disease, other inflammatory or infectious process, lymphoma, small bowel carcinoma. Labs Labs: Laboratory Results - last 24 hr 06/23/21 06/23/21 06/23/21
--- NOTE | 2021-06-24 11:50 | PC.NURSE ---
To GI lab per wheelchair. IV saline locked.
--- NOTE | 2021-06-24 12:19 | WPDANESEPPF ---
Anes - Initial Pre Proc Eval Procedure: Operation Date: 06/24/21 13:15 Proposed Procedures p Colonoscopy - Jorge Leung MD Date/Time: 06/24/21 12:19 Surgeon: Sherri Velazquez MD Pre Op Diagnosis: RLQ pain Patient Data Age: 80 Gender: M Height: 1.85 m Weight: 122.8 kg Last Vital Signs Temp 36.0 C L 06/24/21 03:17 Pulse 92 06/24/21 03:17 Resp 18 06/24/21 03:17 BP 128/75 06/24/21 03:17 Pulse Ox 97 06/24/21 03:17 Allergies Allergy/AdvReac Type Severity Reaction Status Date / Time No Known Allergies Allergy Verified 06/24/21 12:21 Home Medications Medication Instructions Recorded Confirmed Type aspirin 325 mg tablet,delayed 325 mg PO DAILY 09/17/19 06/22/21 History release omega-3 fatty acids 1,000 mg 1,000 mg PO BID 09/17/19 06/22/21 History capsule finasteride 5 mg tablet 5 mg PO DAILY 09/22/19 06/22/21 History lisinopril 20 mg tablet 20 mg PO BID #180 tablet 10/20/20 06/22/21 Rx niacin 500 mg tablet 500 mg PO DAILY tablet 05/04/21 06/22/21 History furosemide 40 mg PO DAILY 06/22/21 06/22/21 History Laboratory Tests 06/23/21 06/23/21 06/23/21 12:20 14:21 14:21 WBC RBC Hgb Hct MCV MCH MCHC RDW Plt Count MPV Immature Gran % (Auto) Neut % (Auto) Lymph % (Auto) [place] % (Auto) Eos % (Auto) Baso % (Auto) Lymph # (Auto) [place] # (Auto) Eos # (Auto) Baso # (Auto) Abs Immat Gran (auto) Absolute Neuts (auto) Absolute Nucleated RBC Nucleated RBC % ESR 24 mm/hr H mm/hr (0-20) Sodium 142 mmol/L mmol/L (137-145) Potassium 5.8 mmol/L H mmol/L (3.4-5.0) Chloride 107 mmol/L mmol/L (98-107) Carbon Dioxide 28 mmol/L mmol/L (22-30) Anion Gap 7 mmol/L L mmol/L (8-16) BUN 47 mg/dL H mg/dL (9-20) Creatinine 1.30 mg/dL mg/dL (0.7-1.3) Estim Creat Clear Calc 55 ml/min ml/min Estimated GFR 53 L (59 - ) Glucose 98 mg/dL mg/dL (65-110) Calcium 9.4 mg/dL mg/dL (8.4-10.2) Total Bilirubin AST ALT Alkaline Phosphatase C-Reactive Protein 21.9 mg/dL H mg/dL (<1.0) Total Protein Albumin 06/23/21 06/24/21 06/24/21 15:03 04:30 04:30 WBC 10.5 K/mm3 H K/mm3 (4.5-10.0) RBC 5.19 M/mm3 M/mm3 (4.6-6.20) Hgb 16.0 g/dL g/dL (14.0-18.0) Hct 51.1 % % (42.0-52.0) MCV 98.5 fl fl (80-100) MCH 30.8 pg pg (26-34) MCHC 31.3 g/dl L g/dl (32-36) RDW 16.3 % H % (11.5-14.5) Plt Count 186 k/mm3 k/mm3 (150-375) MPV 10.6 fl H fl (7.4-10.4) Immature Gran % (Auto) 1.6 % H % (0-0.5) Neut % (Auto) 85.0 % H % (45.5-73.1) Lymph % (Auto) 5.2 % L % (18.3-44.2) [place] % (Auto) 7.2 % % (2.6-8.5) Eos % (Auto) 0.5 % % (0-4.4) Baso % (Auto) 0.5 % % (0.2-1.2) Lymph # (Auto) 0.54 K/mm3 L K/mm3 (0.9-3.2) [place] # (Auto) 0.8 K/mm3 H K/mm3 (0.1-0.6) Eos # (Auto) 0.1 K/mm3 K/mm3 (0-0.3) Baso # (Auto) 0.1 K/mm3 K/mm3 (0.0-0.1) Abs Immat Gran (auto) 0.17 K/mm3 H K/mm3 (0.00-0.031) Absolute Neuts (auto) 8.9 K/mm3 H K/mm3 (1.3-6.7) Absolute Nucleated RBC 0.0 K/mm3 K/mm3 (0.0-0.012) Nucleated RBC % 0.0 % % (0.0-0.2) ESR Sodium 138 mmol/L mmol/L (137-145) Potassium 4.7 mmol/L mmol/L 3.7 mmol/L mmol/L (3.4-5.0) (3.4-5.0) Chloride 105 mmol/L mmol/L (98-107) Carbon Dioxide 23 mmol/L mmol/L
[2021-06-24] MEDS: LACTATED RINGERS 1,000 ML 150 ML IV CONT (12:33)
--- NOTE | 2021-06-24 13:30 | ECG_ITS ---
Measurements Intervals [place] Rate: 81 P: [place]: 0 QRS: 21 QRSD: 97 T: 16 QT: 360 QTc: 419 Interpretive Statements ATRIAL FIBRILLATION LOW QRS VOLTAGE IN PRECORDIAL LEADS BASELINE ARTIFACT- I, II, III, AVR, AVL, AVF, V1-V6 ABNORMAL ECG Electronically Signed On 06-24-2021 14:38:40 CDT by Andrew Schofield D.O.
--- NOTE | 2021-06-24 14:10 | SUR.PHASEII ---
Spoke with hospitalist Murtaza. Informed of new onset Afib. Stated he was going to place new orders. Report given to zeynep Ross RN on patient status.
--- NOTE | 2021-06-24 16:24 | PM.IMPN ---
Progress Note: A&P Assessment and Plan (1) Abdominal pain, acute, right lower quadrant: Onset Date: ~06/16/21 Code(s): R10.31 - Right lower quadrant pain Status: Acute Assessment and Plan: 1. Right lower pain secondary to ileus: -patient CT evidence of ileitis complains of right lower extremity pain, with no nausea, vomiting or diarrhea reported -He is currently Receiving IV Zosyn. -Xnottyngyox40/5/2021reveals uncomplicated diverticulosis and colonic polyps that were excised. - CRP 21.9 - Patient planned for Colonoscopy tomorrow as per GI recommendations - continue to monitor (2) Ileitis: Onset Date: ~06/23/21 Code(s): K52.9 - Noninfective gastroenteritis and colitis, unspecified Status: Acute Assessment and Plan: As above. (3) Hyperkalemia: Code(s): E87.5 - Hyperkalemia Status: Acute Assessment and Plan: 2. Hyperkalemia: - Resolved. - hold Lisinopril for now and can resume at the time of discharge - BP stable for now; 111-144/61-91, which is moderately controlled. Hold BP meds.. (4) Leukocytosis: Onset Date: ~06/22/21 Qualifiers: Leukocytosis type: unspecified Qualified Code(s): D72.829 - Elevated white blood cell count, unspecified Code(s): D72.829 - Elevated white blood cell count, unspecified Status: Resolved Assessment and Plan: Improved with a WBC of 10.5 with 85% neutrophils. Continue to monitor (5) Left hip pain: Code(s): M25.552 - Pain in left hip Status: Acute Assessment and Plan: pain management p.r.n.. (6) Obesity (BMI 30-39.9): Code(s): E66.9 - Obesity, unspecified Status: Acute Assessment and Plan: Diet and exercise counseling. (7) Pre-diabetes: Code(s): R73.03 - Prediabetes Status: Acute Assessment and Plan: Random glucose was 111. No need for sliding scale insulin at this time. Patient is counseled about diet and exercise to prevent or delay the onset of diabetes. (8) Essential hypertension: Onset Date: Unknown Code(s): I10 - Essential (primary) hypertension Status: Acute Assessment and Plan: Blood pressures were reviewed and they are stable. Continue Lasix 20 mg p.o. daily and continue to hold lisinopril. (9) Chronic kidney disease (CKD), stage III (moderate): Qualifiers: Chronic kidney disease stage 3 subtype: stage 3b (GFR 30-44) Qualified Code(s): N18.32 - Chronic kidney disease, stage 3b Code(s): N18.30 - Chronic kidney disease, stage 3 unspecified Status: Acute Assessment and Plan: Follow-up with nephrology every 6 months. Avoid nephrotoxic medications. (10) Hyperlipidemia: Qualifiers: Hyperlipidemia type: unspecified Qualified Code(s): E78.5 - Hyperlipidemia, unspecified Code(s): E78.5 - Hyperlipidemia, unspecified Status: Acute Subjective Date/time seen: 06/24/21 15:24 S: The patient examined at the bedside. He denies reports mild right lower quadrant pain after the procedure. He underwent a colonoscopy today, report to follow. Periprocedurally, he developed atrial fibrillation which is spontaneously rate-controlled. 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 Interval history: This is an 80-year-old gentleman with a past medical history significant for hypertension, hyperlipidemia, prediabetes, CKD and benign prostatic hyperplasia originally presented with complaints of abdominal pain. Patient currently being treated for ileitis possibly infectious but concerns for inflammatory or malignant possibilities as well. The patient is continuing to receive IV Zosyn and is also being followed by GI who performed a colonoscopy today. Exam Narrative: General: Well-developed elderly male lying on his right side in bed in no acute distress. He is slightly hard of
[2021-06-24] MEDS: ONDANSETRON INJ 4 MG/2 ML VIAL IV PUSH (18:34)
[2021-06-24] MEDS: HEPARIN SODIUM 5,000 UNITS/ML VIAL 5000 UNITS SUB-Q (20:37)
[2021-06-25] VITALS (8 sets, daily range): BP systolic 127–168; BP diastolic 77–86; PULSE 54–94; RESP 18–20; TEMP 36.1–36.4; O2SAT 97
[2021-06-25 06:51] LABS: Magnesium 2.8 mg/dL (1.6-2.3)
[2021-06-25] MEDS: FUROSEMIDE 40 MG TABLET PO (08:29)
[2021-06-25] MEDS: FINASTERIDE 5 MG TABLET PO (08:29)
[2021-06-25] MEDS: NIACIN SA 500 MG TABLET PO (08:29)
[2021-06-25] MEDS: OMEGA 3 POLYUNSAT FATTY ACIDS 1 GM CAP PO (08:29)
[2021-06-25] MEDS: HEPARIN SODIUM 5,000 UNITS/ML VIAL 5000 UNITS SUB-Q (08:32)
--- NOTE | 2021-06-25 08:43 | PM.PNGS ---
Progress Note: A&P Assessment and Plan (1) Right lower quadrant abdominal pain: Code(s): R10.31 - Right lower quadrant pain Status: Acute Assessment and Plan: resolved, no ileitis on scope, exam benign, would dc abx, no acute surgical issues, will sign off, call c ?s, issues Subjective Subjective Date/Time Seen: 06/25/21 08:43 feels better, vivian reg diet and having loose stools Review of Systems Review of Systems: All systems reviewed & are unremarkable except as noted in HPI and below Exam Const: General: cooperative, comfortable and no acute distress Nutritional Appearance: obese Orientation/consciousness: patient oriented x3 Resp: Effort & Inspection: normal respiratory effort Auscultation: clear to auscultation bilaterally Cardio: Rate: regular rate Rhythm: regular rhythm GI: Inspection: normal to inspection and distended GI Palp: Yes Soft to palpation, No Tenderness to palpation present (GI), No Guarding due to palpation present (GI) and No Rigid due to palpation Objective Data Vital Signs Vital Signs: Vital Signs - 24 hr 06/24/21 12:25 06/24/21 13:44 06/24/21 13:54 Temperature 36.2 C L Pulse Rate 79 84 69 Respiratory Rate 16 24 H 22 H Blood Pressure 134/61 115/76 111/80 Pulse Oximetry 96 98 100 06/24/21 14:04 06/24/21 14:13 06/24/21 16:00 Temperature 36.2 C L Pulse Rate 76 73 106 H Respiratory Rate 22 H 18 Blood Pressure 133/81 144/91 H Pulse Oximetry 100 95 06/24/21 20:00 06/25/21 00:00 06/25/21 00:30 Temperature 36.4 C 36.4 C Pulse Rate 91 89 91 Respiratory Rate 16 18 Blood Pressure 137/55 L 168/81 H Pulse Oximetry 94 97 06/25/21 04:00 06/25/21 04:30 Temperature 36.4 C Pulse Rate 77 54 L Respiratory Rate 18 Blood Pressure 137/86 Pulse Oximetry 97 Intake/Output Intake/Output: Intake & Output 06/22/21 06/23/21 06/24/21 06/25/21 23:59 23:59 23:59 23:59 Intake Total 50 2827 1100 550 Output Total 1610 1225 500 Balance 50 1217 -125 50 Meds/Results Medications: Active Medications Generic Name Dose Route Start Last Admin Trade Name Freq PRN Reason Stop Dose Admin Acetaminophen 650 mg 06/22/21 20:26 Acetaminophen 325 Mg Tablet PO Q4H PRN Mild Pain (1-3) or Fever Hydrocodone Bitart/Acetaminophen 1 tab 06/22/21 23:08 06/23/21 03:16 Hydrocodone/Acetaminophen (*Crx) 5-325 Mg Tablet PO 1 tab Q6H PRN Administration Pain Rated 4-6 Aspirin 325 mg 06/23/21 09:00 06/23/21 08:02 Aspirin 325 Mg Enteric Tablet PO 325 mg DAILY SAMIA Administration Finasteride 5 mg 06/23/21 09:00 06/25/21 08:29 Finasteride 5 Mg Tablet PO 5 mg DAILY SAMIA Administration Fish Oil 1 gm 06/23/21 09:00 06/25/21 08:29 [place] 3 Polyunsat Fatty Acids 1 Gm Cap PO 1 gm BID SAMIA Administration Furosemide 40 mg 06/23/21 09:00 06/25/21 08:29 Furosemide 40 Mg Tablet PO 40 mg DAILY SAMIA Administration Heparin Sodium (Porcine) 5,000 units 06/23/21 21:00 06/25/21 08:32 Heparin Sodium 5,000 Units/Ml Vial SUB-Q 5,000 units Q12HR SAMIA Administration Piperacillin/Tazobactam/Dextrose 3.375 gm in 50 mls @ 100 mls/hr 06/23/21 03:00 06/25/21 08:32 Zosyn 3.375 Gm/D5w 50ml Pm IVPB 100 mls/hr Q6H SAMIA Administration Lisinopril 20 mg 06/23/21 09:00 06/23/21 08:02 Lisinopril 20 Mg Tablet PO 20 mg BID SAMIA Administration Morphine Sulfate 4 mg 06/22/21 20:26 Morphine Sulfate (*Crx) 4 Mg/Ml Inj IV PUSH Q2H PRN Pain Rated 7-10 Niacin 500 mg 06/23/21 09:00 06/25/21 08:29 Niacin Sa 500 Mg Tablet PO 500 mg QAM SAMIA Administration Ondansetron HCl 4 mg 06/24/21 03:00 06/24/21 18:34 Ondansetron Inj 4 Mg/2 Ml Vial IV PUSH 4 mg Q6H PRN Administration Nausea And Vomiting Radiology Results: ITS Impressions Abdomen/Pelvis CT 06/22/21 18:41 IMPRESSION: Prominent inflammatory change at the distal and terminal ileum, with surrounding inflammatory change
--- NOTE | 2021-06-25 15:02 | PM.IMPN ---
Progress Note: A&P Assessment and Plan (1) Abdominal pain, acute, right lower quadrant: Onset Date: ~06/16/21 Code(s): R10.31 - Right lower quadrant pain Status: Acute Assessment and Plan: 1. Right lower pain secondary to ileus: -On imaging, there is no right lower quadrant drainable abscess on that CT. Patient had IV antibiotics hanging with him for the procedure. Consider 2 week follow-up CT scan to reevaluate this phlegmonous process. There is no need to continue antibiotics by GI standpoint. (2) Ileitis: Onset Date: ~06/23/21 Code(s): K52.9 - Noninfective gastroenteritis and colitis, unspecified Status: Acute Assessment and Plan: As above. (3) Hyperkalemia: Code(s): E87.5 - Hyperkalemia Status: Acute Assessment and Plan: 2. Hyperkalemia: - Resolved. - hold Lisinopril for now and can resume at the time of discharge - BP stable for now; 111-144/61-91, which is moderately controlled. Hold BP meds.. (4) Leukocytosis: Onset Date: ~06/22/21 Qualifiers: Leukocytosis type: unspecified Qualified Code(s): D72.829 - Elevated white blood cell count, unspecified Code(s): D72.829 - Elevated white blood cell count, unspecified Status: Resolved Assessment and Plan: Improved with a WBC of 10.5 with 85% neutrophils. Continue to monitor (5) Left hip pain: Code(s): M25.552 - Pain in left hip Status: Acute Assessment and Plan: pain management p.r.n.. Discharge with lidocaine patch. (6) Obesity (BMI 30-39.9): Code(s): E66.9 - Obesity, unspecified Status: Acute Assessment and Plan: Diet and exercise counseling. (7) Pre-diabetes: Code(s): R73.03 - Prediabetes Status: Acute Assessment and Plan: Random glucose was 111 on 06/24. No need for sliding scale insulin at this time. Patient is counseled about diet and exercise to prevent or delay the onset of diabetes. (8) Essential hypertension: Onset Date: Unknown Code(s): I10 - Essential (primary) hypertension Status: Acute Assessment and Plan: Blood pressures were reviewed and they are stable in the 137-168/81-86 range.. Continue Lasix 20 mg p.o. daily and resume lisinopril. (9) Chronic kidney disease (CKD), stage III (moderate): Qualifiers: Chronic kidney disease stage 3 subtype: stage 3b (GFR 30-44) Qualified Code(s): N18.32 - Chronic kidney disease, stage 3b Code(s): N18.30 - Chronic kidney disease, stage 3 unspecified Status: Acute Assessment and Plan: Follow-up with nephrology every 6 months. Avoid nephrotoxic medications. (10) Hyperlipidemia: Qualifiers: Hyperlipidemia type: unspecified Qualified Code(s): E78.5 - Hyperlipidemia, unspecified Code(s): E78.5 - Hyperlipidemia, unspecified Status: Acute Additional Plan 1. Right lower pain secondary to ileus: -patient CT evidence of ileitis complains of right lower extremity pain, with no nausea, vomiting or diarrhea reported -He is currently being treated for infectious causes related to ileitis however is being evaluated for possible inflammatory and malignant causes as well. - sent for ESR, CRP and Procalcitonin for this purpose - Patient planned for Colonoscopy tomorrow as per GI recommendations - continue to monitor 2. Hyperkalemia: - 5.1>5.8; will give one dose of PO Kayexalate and redraw K after patient has a BM; otherwise, repeat K at 4pm - hold Lisinopril for now and can resume at the time of discharge - BP stable for now; will hold off on any PRN meds, until need be. 3. Preparation for colonoscopy: - in preparation for colonoscopy, will hold ASA 325 (will discuss with GI as well) - start Heparin or Prophylaxis purposes however hold the last dose in AM 06/24, can resume in evening 06/24, after procedure DISPOSITION: admitted to [facility] 06/23/2021; continues to
--- NOTE | 2021-06-25 15:02 | PM.DS ---
DS: Admitting Diagnosis Discharge Date 06/25/2021. Admitting Diagnosis right lower quadrant abdominal pain. Ileitis. DS: Discharge Diagnosis Discharge Diagnosis (1) Chronic kidney disease, stage 3: Code(s): N18.30 - Chronic kidney disease, stage 3 unspecified Status: Acute (2) Abdominal pain, acute, right lower quadrant: Onset Date: ~06/16/21 Code(s): R10.31 - Right lower quadrant pain Status: Acute Assessment and Plan: 1. Right lower pain secondary to ileus: -On imaging, there is no right lower quadrant drainable abscess on that CT. Patient had IV antibiotics hanging with him for the procedure. Consider 2 week follow-up CT scan to reevaluate this phlegmonous process. There is no need to continue antibiotics by GI standpoint. (3) Ileitis: Onset Date: ~06/23/21 Code(s): K52.9 - Noninfective gastroenteritis and colitis, unspecified Status: Acute Assessment and Plan: As above. (4) Hyperkalemia: Code(s): E87.5 - Hyperkalemia Status: Acute Assessment and Plan: 2. Hyperkalemia: - Resolved. - hold Lisinopril for now and can resume at the time of discharge - BP stable for now; 111-144/61-91, which is moderately controlled. Hold BP meds.. (5) Leukocytosis: Onset Date: ~06/22/21 Qualifiers: Leukocytosis type: unspecified Qualified Code(s): D72.829 - Elevated white blood cell count, unspecified Code(s): D72.829 - Elevated white blood cell count, unspecified Status: Resolved Assessment and Plan: Improved with a WBC of 10.5 with 85% neutrophils. Continue to monitor (6) Left hip pain: Code(s): M25.552 - Pain in left hip Status: Acute Assessment and Plan: pain management p.r.n.. Discharge with lidocaine patch. (7) Obesity (BMI 30-39.9): Code(s): E66.9 - Obesity, unspecified Status: Acute Assessment and Plan: Diet and exercise counseling. (8) Pre-diabetes: Code(s): R73.03 - Prediabetes Status: Acute Assessment and Plan: Random glucose was 111 on 11/5. No need for sliding scale insulin at this time. Patient is counseled about diet and exercise to prevent or delay the onset of diabetes. (9) Essential hypertension: Onset Date: Unknown Code(s): I10 - Essential (primary) hypertension Status: Acute Assessment and Plan: Blood pressures were reviewed and they are stable in the 137-168/81-86 range.. Continue Lasix 20 mg p.o. daily and resume lisinopril. (10) Hyperlipidemia: Qualifiers: Hyperlipidemia type: unspecified Qualified Code(s): E78.5 - Hyperlipidemia, unspecified Code(s): E78.5 - Hyperlipidemia, unspecified Status: Acute DS: Summary Hospital Course Reason for hospitalization: Right lower quadrant abdominal pain. Hospital Course: Please refer to history and physical. Briefly, this is an 80-year-old male with history of hypertension, dyslipidemia, prediabetes, chronic kidney disease, and benign prostatic hyperplasia who presented to the emergency department on 06/22/2021 via private vehicle from home for evaluation of right lower quadrant abdominal pain. A CT of the abdomen pelvis done on arrival to the emergency department demonstrated prominent inflammatory change at the distal and terminal ileum with surrounding inflammatory changes with a differential diagnosis to include Crohn's disease, other inflammatory infectious process, lymphoma, or small bowel carcinoma. his colonoscopy reveals multiple diverticula present in the descending colon and in the sigmoid colon. Diverticula were not actively bleeding, no inflammation. There were two 2 mm to 6 mm polyps observed in the ascending colon. Multiple polypectomies were performed. The police were promptly excise. The terminal ileum and colon were examined and were otherwise no small; no colitis, ileitis, stricture or abnormal f
[2021-06-25 16:34] LABS: Anion Gap 5 mmol/L (8-16); Blood Urea Nitrogen 41 mg/dL (9-20); Calcium 9.4 mg/dL (8.4-10.2); Carbon Dioxide 31 mmol/L (22-30); Chloride 103 mmol/L (98-107); Estimated CRCL calculation 45 ml/min; Estimated Glomerular Filt Rate 42; Glucose 125 mg/dL (65-110); Potassium 4.3 mmol/L (3.4-5.0); Sodium 139 mmol/L (137-145)
== END 2021-06-25 18:12 | disposition home or self-care (01) ==
LOC: ANHED 20:25 → ANH2MED 06-23 07:17
PROVIDERS: Emergency Medicine; Internal Medicine; Internal Medicine Gastroenterology; Physician Assistant; Surgery; Admitting Provider Internal Medicine; Emergency Provider Family Medicine; PCP Emergency Medicine; Visit Provider Internal Medicine
PROC: 0DJD8ZZ Inspection of Lower Intestinal Tract, Via Natural or Artificial Opening Endoscopic (ICD-10-PCS; CPT 45378; principal; 2021-06-24 13:15)
DX: K57.30 Diverticulosis of large intestine without perforation or abscess without bleeding (principal); K52.9 Noninfective gastroenteritis and colitis, unspecified; D12.2 Benign neoplasm of ascending colon; D12.4 Benign neoplasm of descending colon; R10.31 Right lower quadrant pain; I12.9 Hypertensive chronic kidney disease with stage 1 through stage 4 chronic kidney disease, or unspecified chronic kidney disease; N18.30 Chronic kidney disease, stage 3 unspecified; R73.03 Prediabetes; N40.0 Benign prostatic hyperplasia without lower urinary tract symptoms; E78.5 Hyperlipidemia, unspecified; M16.0 Bilateral primary osteoarthritis of hip; Z23 Encounter for immunization
CPT/HCPCS: 45385; 45380; 36415; 74176; 74250; 80048; 80053; 81001; 83690; 83735; 84132; 84134; 84145; 84443; 85025; 85652; 86140; 88305; 90471; 90653; 93005; 96361; 96365; 96366; 96372; 99285; A9270; G0008; G0378; J1644; J2405; J2543; J2704; J7030; J7120

== ENCOUNTER 2021-07-07 11:01 | Emergency (ER) | payer MEDICARE, SELFPAY ==
--- NOTE | ~2021-07-07 | XR_ITS ---
EXAMINATION: XR chest 2V EXAM DATE: 07/07/2021 11:44 INDICATION: Leukocytosis SOB. TECHNIQUE: Frontal and lateral projections of the chest obtained and reviewed. Comparison is made to prior examination from 11/03/2016. FINDINGS: There is cardiomegaly. Retrocardiac region is poorly penetrated on the frontal image, diffi cult to exclude airspace disease in that location. The lungs are otherwise clear. There is no pneumot horax suspected. There are no pleural effusions. There are mild bony degenerative changes. IMPRESSION: Cardiomegaly. No definite acute airspace disease but retrocardiac region poorly penetrat ed. Reviewed, dictated and finalized at location [facility]. 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 No definite acute airspace disease but retrocardiac region poorly penetrated.
--- NOTE | ~2021-07-07 | CT_ITS ---
EXAMINATION: CT abdomen pelvis wo con DATE: 07/07/2021 12:56 INDICATION: Right lower abdominal tenderness. Abnormal laboratory tests TECHNIQUE: Computed tomography (CT) of the abdomen and pelvis was performed without intravenous contr ast. Automated exposure control and iterative reconstruction technique were employed. Exam dose: 152 6.71 mGy-cm total exam DLP. COMPARISON: 06/22/2021 CT abdomen pelvis FINDINGS: There is discoid atelectasis and/or scarring at the lung bases. Cardiomegaly. Coronary artery calcification. Status post cholecystectomy. No hepatic space-occupying mass lesion is evident. Splenic size is normal. There is subtle mild ill-defined approximately 3.5 cm area of decreased density of the anterior porti on of the spleen, of uncertain if any significance. CT examination with IV contrast material may be h elpful for further evaluation of the spleen as clinically appropriate. No pancreatic mass lesion or calcification. No bile duct or pancreatic duct dilatation. Normal morphology of the adrenal glands. Bilateral renal cysts are noted, the largest situated on the right, measuring up to 3.5 cm dimension. Left renal cysts measure up to approximately 1 cm. There is diffuse left renal atrophy. No urinary tract calculus or hydroureteronephrosis. Diverticula of the urinary bladder. No bladder wa ll thickening is evident. There is prominent prostate enlargement. There is atherosclerotic calcification of the abdominal aorta but no aneurysm. No intraperitoneal or retroperitoneal or pelvic mass lesion or adenopathy or ascites. There is fat stranding in the region of the cecal tip and appendix. Clinical correlation for appendic itis is recommended. There are innumerable diverticula of the sigmoid and to a lesser extent descending colon. Bilateral fat-containing inguinal hernias. There are severe osteoarthritic changes of both hips, left greater than right. Approximately 13 x 25 mm sclerotic lesion of the left side of the T7 vertebral body; there are scatte red occasional much smaller sclerotic lesions of the axial skeleton. Differential diagnosis includes bone islands versus osteosclerotic metastatic disease from prostate cancer. Consider radionuclide bon e scan or further evaluation. Severe degenerative disc disease at L2-3 and L5-S1 in particular. 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 IMPRESSION: Inflammatory change in the region of the cecal tip and appendix; recommend clinical jelly elation for appendicitis Status post cholecystectomy Bilateral renal cysts Diffuse left renal atrophy Diverticulosis of left colon; no CT evidence of diverticulitis Bilateral fat-containing inguinal hernias Prominent osteosclerotic lesion of T7 and scattered small osteosclerotic lesions; cannot exclude oste osclerotic metastatic disease from prostate carcinoma. Consider radiographic bone scan Nonspecific 3.5 cm focal area of hypoattenuation of spleen; consider CT examination with IV contrast material Reviewed, dictated and finalized at [facility]. Reviewed, dictated and finalized at location [facility]. T ADMINISTRATOR IMPRESSION: Inflammatory change in the region of the cecal tip and appendix; r ecommend clinical correlation for appendicitis Status post cholecystectomy Bilateral renal cysts Diffuse left renal atrophy Diverticulosis of left colon; no CT evidence of diverticulitis Bilateral fat-containing inguinal hernias Prominent osteosclerotic lesion of T7 and scattered small osteosclerotic lesion s; cannot exclude osteosclerotic metastatic disease from prostate carcinoma. Co nsider radiographic bone scan Nonspecific 3.5 cm focal area of hypoattenuation of spleen; consider CT examina tion with IV contrast material
[2021-07-07 11:03] VITALS: BP 150/97; PULSE 94; RESP 20; TEMP 36.6; O2SAT 97
[2021-07-07 11:06] VITALS: BP 109/61; PULSE 56; RESP 20; TEMP 36.9; O2SAT 98
[2021-07-07 11:31] VITALS: RESP 20; O2SAT 98
--- NOTE | 2021-07-07 11:35 | ECG_ITS ---
Measurements Intervals [place] Rate: 79 P: DC: 0 QRS: 25 QRSD: 85 T: 14 QT: 345 QTc: 397 Interpretive Statements ATRIAL FIBRILLATION INCOMPLETE RIGHT BUNDLE BRANCH BLOCK LOW QRS VOLTAGE IN PRECORDIAL LEADS BASELINE ARTIFACT- I, II, III, AVR, AVL, AVF, V2-V3 ABNORMAL ECG Electronically Signed On 07-07-2021 11:59:56 SPECIAL LIBRARY LIBRARIAN by Andrew Schofield D.O.
--- NOTE | 2021-07-07 11:42 | PC.NURSE ---
Patient to radiology.
--- NOTE | 2021-07-07 11:59 | ED.RECABL ---
HPI - Recheck/Abnormal Lab/Rx General Chief Complaint: Recheck/Abnormal Lab/Rx Stated Complaint: ELEVATED WBC Time Seen by Provider: 07/07/21 11:24 Source: patient, RN notes reviewed and old records reviewed Mode of arrival: ambulatory Limitations: no limitations History of Present Illness HPI narrative: This is an 80 year old male who presents for evaluation of abnormal labs. He states he was admitted to [facility] 2 weeks ago for treatment of an intestinal infection . He was seen by his PCP for follow up after to his hospitalization so labs were performed this week. He states his PCP called him today because his white blood cell count was elevated, and he was told to come to ER. He states he feels fine. His abdominal pain resolved 1 week ago. He denies chest pain, cough, fever, nausea, vomiting, diarrhea, urinary symptoms, shortness of breath or weakness. Related Data Home Medications Medication Instructions Recorded Confirmed aspirin 325 mg tablet,delayed 325 mg PO DAILY 09/17/19 06/22/21 release omega-3 fatty acids 1,000 mg 1,000 mg PO BID 09/17/19 06/22/21 capsule finasteride 5 mg tablet 5 mg PO DAILY 09/22/19 06/22/21 niacin 500 mg tablet 500 mg PO DAILY tablet 05/04/21 06/22/21 furosemide 40 mg PO DAILY 06/22/21 06/22/21 Allergies Allergy/AdvReac Type Severity Reaction Status Date / Time No Known Allergies Allergy Verified 06/24/21 12:21 Review of Systems Review of Systems: All systems reviewed & are unremarkable except as noted in HPI and below PMFSH Past Medical History Medical History Abnormal CT scan, colon Actinic keratosis Benign prostatic hyperplasia Bilateral primary osteoarthritis of hip Bladder stones Chronic kidney disease, stage 3 Baseline creatinine ranges between 1.40 and 1.60. 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 History of transurethral resection of prostate History of ventral hernia repair (2005) Status post excision of lipoma Anterior abdominal wall. Family History Family History Father Acute myocardial infarction Mother Breast cancer Hypertension Sibling Leukemia Sibling Lung cancer Social History Social History Social History: Surrogate decision maker: Kishore Koroma Jr, son. Code status: Full code. Smoking packs per day: 2 Smoking cigarettes per day: 40.0 Years smoked: 4 Smoking pack-years: 8.00 Smoking status: Former smoker Tobacco type: cigarettes Second hand tobacco smoke exposure: Yes Smoking end date: 08/20/1964 Alcohol intake: never Substance use: never Additional living arrangements comments: The patient lives in his own home in [place]. He was in the [employer] as young gentleman. 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 Additional occupation/education comments: Retired. Spiritual care concerns: No Exam Const: General: no acute distress and alert Orientation/consciousness: patient oriented x3 Eyes: EOM: EOMs intact bilaterally Resp: Effort & Inspection: normal respiratory effort and no retractions Auscultation: clear to auscultation bilaterally Cardio: Rate: regular rate Rhythm: regular rh
[2021-07-07 12:05] VITALS: BP 148/93; PULSE 79; RESP 20; O2SAT 99
[2021-07-07 12:13] LABS: Basophils Percent Auto 0.4 % (0.2-1.2); Eosinophils Absolute Auto 0.1 K/mm3 (0-0.3); Eosinophils Percent Auto 0.8 % (0-4.4); Hematocrit 47.5 % (42.0-52.0); Hemoglobin 15.7 g/dL (14.0-18.0); Immature Granulocyte Absolute 0.15 K/mm3 (0.00-0.031); Immature Granulocyte Percent A 1.6 % (0-0.5); Lymphocytes Absolute Auto 0.61 K/mm3 (0.9-3.2); Lymphocytes Percent Auto 6.6 % (18.3-44.2); Mean Corpuscular HGB Conc 33.1 g/dl (32-36); Mean Corpuscular Hemoglobin 31.3 pg (26-34); Mean Corpuscular Volume 94.8 fl (80-100); Mean Platelet Volume 10.4 fl (7.4-10.4); Monocytes Absolute Auto 0.7 K/mm3 (0.1-0.6); Monocytes Percent Auto 7.2 % (2.6-8.5); Neutrophils Absolute Auto 7.7 K/mm3 (1.3-6.7); Neutrophils Percent Auto 83.4 % (45.5-73.1); Platelet Count Result 218 k/mm3 (150-375); Red Blood Count 5.01 M/mm3 (4.6-6.20); Red Cell Distribution Width 15.9 % (11.5-14.5); White Blood Count 9.2 K/mm3 (4.5-10.0)
[2021-07-07 12:27] LABS: Alanine Aminotransferase 34 U/L (4-50); Albumin Level 3.7 g/dL (3.5-5.1); Alkaline Phosphatase 72 U/L (38-126); Anion Gap 8 mmol/L (8-16); Aspartate Amino Transferase 30 U/L (17-59); Bilirubin,Total 0.4 mg/dL (0.2-1.3); Blood Urea Nitrogen 42 mg/dL (9-20); Carbon Dioxide 27 mmol/L (22-30); Chloride 103 mmol/L (98-107); Estimated CRCL calculation 52 ml/min; Estimated Glomerular Filt Rate 58; Glucose 112 mg/dL (65-110); Lipase 57 U/L (23-300); Magnesium 2.1 mg/dL (1.6-2.3); Potassium 4.2 mmol/L (3.4-5.0); Sodium 138 mmol/L (137-145)
[2021-07-07 12:56] LABS: Add Urine Microscopic? NO; Appearance Urine Clear (Clear); Bilirubin Urine Negative (Negative); Blood Urine Negative (Negative); Color Urine Yellow (Yellow); Glucose Urine UA Negative (Negative); Ketones Urine Negative (Negative); Leukocyte Esterase Ur Negative LEU/UL (Negative); Nitrate Urine Negative (Negative); Protein Urine Negative (Negative); Specific Grav Ur 1.014 (1.001-1.035); Urobilinogen Urine Negative mg/dL (<2.0)
[2021-07-07 14:11] VITALS: BP 148/87; PULSE 87; RESP 18; O2SAT 99
[2021-07-07 14:56] VITALS: BP 161/93; PULSE 77; RESP 16; TEMP 37; O2SAT 94
--- NOTE | 2021-07-07 16:16 | PM.CNGS ---
Assessment and Plan Assessment and plan (1) Abdominal right lower quadrant tenderness: Qualifiers: Presence of rebound: absent Qualified Code(s): R10.813 - Right lower quadrant abdominal tenderness Code(s): R10.813 - Right lower quadrant abdominal tenderness Status: Acute Assessment and Plan: Abdominal exam benign, CT scan reviewed, questionable resolving appendicitis, no acute surgical issues, would discharge home and follow-up with surgery in 1 week (2) Leukocytosis: Onset Date: ~06/22/21 Qualifiers: Leukocytosis type: unspecified Qualified Code(s): D72.829 - Elevated white blood cell count, unspecified Code(s): D72.829 - Elevated white blood cell count, unspecified Status: Resolved Assessment and Plan: white count normal on laboratory evaluation in ED today, no indications for antibiotics History of Present Illness Consult details Consult date: 07/07/21 Reason for consult: abdominal pain Requesting physician: Love Stubbs MD Narrative: The patient is a 80-year-old male well known to our service from previous admission presenting to the ED for evaluation of leukocytosis. The patient had previously been admitted with severe right lower quadrant abdominal pain and ileitis. The patient reports he has been doing well since discharge. He reports tolerating a regular diet and having normal bowel function. The patient abdominal pain since discharge. The patient was seen by his primary care physician yesterday and the routine labs were drawn. The patient reports he was called by his primary care this morning and told to come to the ER for evaluation of leukocytosis. Review of Systems Constitutional: Constitutional: Denies anorexia, Denies chills, Denies fatigue, Denies fever(s), Denies increased appetite, Denies lethargy, Denies malaise, Denies poor appetite, Denies weakness, Denies weight gain and Denies weight loss Eyes: Eyes: Reports no additional eye complaints ENT: Reports system reviewed and no additional complaints, except as documented Cardiovascular: Cardiovascular: Reports no additional cardiovascular complaints Respiratory: Respiratory: Reports no additional respiratory complaints Gastrointestinal: Gastrointestinal: Reports no additional gastrointestinal complaints Genitourinary: Genitourinary: Reports no additional male genitourinary complaints Musculoskeletal: Musculoskeletal: Reports no additional musculoskeletal complaints Integumentary/Breasts: Skin/Breast: Reports system reviewed and no additional complaints, except as docu Neurologic: Reports system reviewed and no additional complaints, except as documented Psychiatric: Psychiatric: Reports no additional psychiatric complaints Endocrine: Endocrine: Reports no additional endocrine complaints Hematologic/Lymphatic: Hematologic/Lymphatic: Reports no additional hematologic/lymphatic complaints Allergic/Immunologic: Allergic/Immunologic: Reports no additional allergic/immunologic complaints [facility] Past Medical History Medical History Abnormal CT scan, colon Actinic keratosis Benign prostatic hyperplasia Bilateral primary osteoarthritis of hip Bladder stones Chronic kidney disease, stage 3 Baseline creatinine ranges between 1.40 and 1.60. 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 History of trans
== END 2021-07-07 15:25 | disposition home or self-care (01) ==
PROVIDERS: Emergency Provider General Practice; PCP Emergency Medicine
DX: D72.829 Elevated white blood cell count, unspecified (principal); M89.9 Disorder of bone, unspecified; R10.813 Right lower quadrant abdominal tenderness; I12.9 Hypertensive chronic kidney disease with stage 1 through stage 4 chronic kidney disease, or unspecified chronic kidney disease; N18.30 Chronic kidney disease, stage 3 unspecified; R73.03 Prediabetes; E78.5 Hyperlipidemia, unspecified; N40.0 Benign prostatic hyperplasia without lower urinary tract symptoms; K21.9 Gastro-esophageal reflux disease without esophagitis; M16.0 Bilateral primary osteoarthritis of hip; Z87.442 Personal history of urinary calculi; Z86.010 Personal history of colon polyps; Z85.828 Personal history of other malignant neoplasm of skin; Z79.82 Long term (current) use of aspirin; Z96.652 Presence of left artificial knee joint; Z90.79 Acquired absence of other genital organ(s); Z87.891 Personal history of nicotine dependence; I48.91 Unspecified atrial fibrillation; I45.10 Unspecified right bundle-branch block; I51.7 Cardiomegaly; N28.1 Cyst of kidney, acquired; K57.90 Diverticulosis of intestine, part unspecified, without perforation or abscess without bleeding; K40.90 Unilateral inguinal hernia, without obstruction or gangrene, not specified as recurrent; R93.5 Abnormal findings on diagnostic imaging of other abdominal regions, including retroperitoneum
CPT/HCPCS: 36415; 71046; 74176; 80053; 81003; 83690; 83735; 85025; 93005; 99284

== ENCOUNTER 2021-08-05 12:03 | Emergency (ER) | payer MEDICARE, SELFPAY ==
[2021-08-05] VITALS (8 sets, daily range): BP systolic 123–187; BP diastolic 68–103; PULSE 76–106; RESP 20–25; O2SAT 96–99
--- NOTE | ~2021-08-05 | XR_ITS ---
XR shoulder LT min 2V DATE: 08/05/2021 18:45 INDICATION: Multiple falls. Left shoulder pain. TECHNIQUE: 5 views COMPARISON: None FINDINGS: Diffuse osteopenia. Chronic rotator cuff atrophy. There is osteoarthritic change at the left glenohumeral joint. No fracture or dislocation, periosteal reaction or bone destruction or significant abnormal soft tiss ue calcification of the left shoulder is detected. IMPRESSION: Osteopenia Chronic rotator cuff atrophy Glenohumeral osteoarthritis Reviewed, dictated and finalized at location A. GER ASSET MANAGEMENT
--- NOTE | ~2021-08-05 | XR_ITS ---
XR hip LT 2V w AP pelvis DATE: 08/05/2021 18:44 INDICATION: Multiple falls. Left hip pain. TECHNIQUE: AP pelvis. AP and lateral views of left hip. COMPARISON: None FINDINGS: Diffuse osteopenia. Normal alignment at the pubic symphysis and sacroiliac joints. No pelvic fracture or bone destruction is detected. There is bilateral hip osteoarthritic arthritis, particularly severe on the left. No fracture or dislocation of the left hip is detected. IMPRESSION: Bilateral hip osteoarthritis, particularly severe on the left Osteopenia No pelvic or left hip fracture or dislocation is detected Reviewed, dictated and finalized at location A. DENTIAL FINISH CARPENTER
--- NOTE | ~2021-08-05 | CT_ITS ---
EXAMINATION: CT brain wo con DATE: 08/05/2021 18:48 INDICATION: Multiple falls in one day TECHNIQUE: Computed tomography (CT) of the head was performed without intravenous contrast. The mA wa s adjusted according to patient size. Iterative reconstruction technique was employed. Exam dose: 68 1.00 mGy-cm total exam DLP. COMPARISON: 04/22/2017 CT brain FINDINGS: Vertebrobasilar in particular prominent carotid siphon internal carotid artery calcificatio ns are noted. There is nonspecific diminished attenuation of the cerebral white matter, likely due to chronic small vessel ischemic changes. No intracranial mass lesion or hemorrhage or cerebrovascular accident is detected. No midline shift o r mass effect effect. No subdural or epidural hematoma. The orbits are unremarkable. The paranasal sinuses and mastoid air cells are normally developed and a erated. No fracture or bone destruction of the cranial vault. IMPRESSION: Cerebral atherosclerosis and chronic small vessel ischemic changes of cerebral white mat ter No skull fracture or acute intracranial finding Reviewed, dictated and finalized at Location A. Reviewed, dictated and finalized at location A. ULAR ULTRASOUND TECHNOLOGIST IMPRESSION: Cerebral atherosclerosis and chronic small vessel ischemic changes of cerebral white matter No skull fracture or acute intracranial finding
[2021-08-05 19:04] LABS: Basophils Percent Auto 0.4 % (0.2-1.2); Eosinophils Percent Auto 0.1 % (0-4.4); Hematocrit 49.5 % (42.0-52.0); Hemoglobin 15.6 g/dL (14.0-18.0); Immature Granulocyte Absolute 0.17 K/mm3 (0.00-0.031); Immature Granulocyte Percent A 1.6 % (0-0.5); Lymphocytes Percent Auto 6.7 % (18.3-44.2); Mean Corpuscular HGB Conc 31.5 g/dl (32-36); Mean Corpuscular Hemoglobin 30.6 pg (26-34); Mean Corpuscular Volume 97.2 fl (80-100); Mean Platelet Volume 10.2 fl (7.4-10.4); Monocytes Absolute Auto 0.8 K/mm3 (0.1-0.6); Monocytes Percent Auto 7.3 % (2.6-8.5); Neutrophils Absolute Auto 8.8 K/mm3 (1.3-6.7); Neutrophils Percent Auto 83.9 % (45.5-73.1); Platelet Count Result 266 k/mm3 (150-375); Red Blood Count 5.09 M/mm3 (4.6-6.20); White Blood Count 10.4 K/mm3 (4.5-10.0)
[2021-08-05 19:06] LABS: Add Urine Microscopic? NO; Appearance Urine Clear (Clear); Bilirubin Urine Negative (Negative); Blood Urine Negative (Negative); Color Urine Yellow (Yellow); Glucose Urine UA Negative (Negative); Ketones Urine Negative (Negative); Leukocyte Esterase Ur Negative LEU/UL (Negative); Nitrate Urine Negative (Negative); Protein Urine Negative (Negative); Specific Grav Ur 1.021 (1.001-1.035); Urobilinogen Urine Negative mg/dL (<2.0)
[2021-08-05 19:17] LABS: Alanine Aminotransferase 59 U/L (4-50); Albumin Level 3.6 g/dL (3.5-5.1); Alkaline Phosphatase 82 U/L (38-126); Anion Gap 7 mmol/L (8-16); Aspartate Amino Transferase 42 U/L (17-59); Bilirubin,Total 0.8 mg/dL (0.2-1.3); Blood Urea Nitrogen 49 mg/dL (9-20); Carbon Dioxide 32 mmol/L (22-30); Chloride 102 mmol/L (98-107); Estimated CRCL calculation 54 ml/min; Estimated Glomerular Filt Rate 53; Glucose 128 mg/dL (65-110); Potassium 4.9 mmol/L (3.4-5.0); Sodium 141 mmol/L (137-145)
--- NOTE | 2021-08-05 19:30 | ED.FALL ---
HPI - Fall General Chief Complaint: Fall Stated Complaint: FREQ FALLS SENT FROM [facility] OFFICE Time Seen by Provider: 08/05/21 17:32 Source: patient Mode of arrival: ambulatory Limitations: no limitations History of Present Illness HPI Narrative: This is an 81 year old male with history of multiple medical problems who presents for evaluation of left shoulder pain s/p fall. Patient states he fell on Sunday, Sunday and today. He denies hitting his head. He states today he fell onto carpet but he is having left shoulder pain. He also reports chronic left hip pain that gets worse with walking. He states he has fallen because he is accidentally tripping. He denies headache, dizziness, chest pain, sob, nausea, vomiting or neck pain. He denies numbness, weakness or tingling. He was referred to ER by his PCP. He state he takes aspirin 81 mg. Related Data Home Medications Medication Instructions Recorded Confirmed aspirin 325 mg tablet,delayed 325 mg PO DAILY 09/17/19 07/28/21 release omega-3 fatty acids 1,000 mg 1,000 mg PO BID 09/17/19 07/28/21 capsule finasteride 5 mg tablet 5 mg PO DAILY 09/22/19 07/28/21 niacin 500 mg tablet 500 mg PO DAILY tablet 05/04/21 07/28/21 furosemide 40 mg PO DAILY 06/22/21 07/28/21 Allergies Allergy/AdvReac Type Severity Reaction Status Date / Time No Known Allergies Allergy Verified 08/05/21 16:53 Review of Systems Review of Systems: All systems reviewed & are unremarkable except as noted in HPI and below PMFSH Past Medical History Medical History Abnormal CT scan, colon Actinic keratosis Benign prostatic hyperplasia Bilateral primary osteoarthritis of hip Bladder stones Chronic kidney disease, stage 3 Baseline creatinine ranges between 1.40 and 1.60. 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 History of transurethral resection of prostate History of ventral hernia repair (2005) Status post excision of lipoma Anterior abdominal wall. Family History Family History Father Acute myocardial infarction Mother Breast cancer Hypertension Sibling Leukemia Sibling Lung cancer Social History Social History Social History: Surrogate decision maker: Kishore Koroma Jr, son. Code status: Full code. Smoking packs per day: 2 Smoking cigarettes per day: 40.0 Years smoked: 4 Smoking pack-years: 8.00 Tobacco type: cigarettes Second hand tobacco smoke exposure: Yes Smoking end date: 08/20/1964 Alcohol intake: never Substance use: never Additional living arrangements comments: The patient lives in his own home in [place]. He was in the [employer] as young gentleman. 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 Additional occupation/education comments: Retired. Spiritual care concerns: No Exam Const: General: no acute distress and alert Orientation/consciousness: patient oriented x3 HENMT: Head: atraumatic Face and sinus: normal facial exam, sinuses nontender and face symmetric Mouth: Yes Normal oral and palatal mucosa present, Yes lip normal, Yes oropharynx normal and Yes moist mucous membranes Eyes: Pupils: Equal, round and react
== END 2021-08-05 20:34 | disposition home or self-care (01) ==
PROVIDERS: Emergency Provider General Practice; PCP Emergency Medicine
DX: S40.012A Contusion of left shoulder, initial encounter (principal); M19.012 Primary osteoarthritis, left shoulder; M16.0 Bilateral primary osteoarthritis of hip; R29.6 Repeated falls; N40.0 Benign prostatic hyperplasia without lower urinary tract symptoms; I12.9 Hypertensive chronic kidney disease with stage 1 through stage 4 chronic kidney disease, or unspecified chronic kidney disease; N18.30 Chronic kidney disease, stage 3 unspecified; R73.03 Prediabetes; E78.5 Hyperlipidemia, unspecified; K21.9 Gastro-esophageal reflux disease without esophagitis; Z85.828 Personal history of other malignant neoplasm of skin; Z87.442 Personal history of urinary calculi; Z79.82 Long term (current) use of aspirin; Z86.010 Personal history of colon polyps; Z90.79 Acquired absence of other genital organ(s); Z87.891 Personal history of nicotine dependence; M85.88 Other specified disorders of bone density and structure, other site; M85.812 Other specified disorders of bone density and structure, left shoulder; I67.2 Cerebral atherosclerosis; W01.0XXA Fall on same level from slipping, tripping and stumbling without subsequent striking against object, initial encounter
CPT/HCPCS: 36415; 70450; 73030; 73502; 80053; 81003; 85025; 99284

== ENCOUNTER 2021-09-24 14:40 | Inpatient (IN) | payer MEDICARE, SELFPAY ==
--- NOTE | ~2021-09-24 | US_ITS ---
US arterial ankle brachial ind INDICATION: Decreased pedal pulses TECHNIQUE: Segmental pressures and plethysmographic and Doppler waveforms of the brachial and lower e xtremity arteries were obtained. COMPARISON: None. FINDINGS: Right and left brachial artery pressures of 176 mm Hg and 173 mm Hg, respectively, are concordant (no rmal difference <= 30 mmHg). The right ankle-brachial index (TAMI) is 1.2 (normal >= 0.9-1.0). The right great toe-brachial index ( TBI) is 1.04 (normal >= 0.60). The left TAMI is 1.16. The left TBI is 1.03. IMPRESSION: 1. Normal bilateral ankle-brachial indices. Reviewed, dictated and finalized at location A. NCIAL ADMINISTRATOR
--- NOTE | ~2021-09-24 | XR_ITS ---
EXAMINATION: XR foot RT min 3V EXAM DATE: 09/24/2021 15:48 INDICATION: Pain, Diabetic, Little Wounds/Bruising On Foot . TECHNIQUE: Right forearm frontal and lateral projections obtained and reviewed. There is no prior st udy for comparison. FINDINGS: The right 5th metatarsophalangeal joint has periarticular osteopenia, early erosive change, and there is considerable widening of the joint space probably from a sizable effusion, septic arthr itis. Less pronounced but similar findings at the 2nd MTP joint. Loss of the articular shape to both 2nd and 5th metatarsal heads. There are no acute fractures identified. Small calcaneal spurs. Vascular calcifications. Moderate mid foot osteoarthritis. IMPRESSION: Findings consistent with right 2nd and 5th MTP joint septic arthritis, osteomyelitis. Reviewed, dictated and finalized at location G. LANE RENTAL CLERK IMPRESSION: Findings consistent with right 2nd and 5th MTP joint septic arthri tis, osteomyelitis.
--- NOTE | ~2021-09-24 | US_ITS ---
EXAMINATION:US venous doppler LE BI INDICATION:Leg edema TECHNIQUE: Multiple grayscale, color flow and Doppler images of the right and left lower extremity de ep venous systems were obtained and reviewed. COMPARISON:No prior studies for comparison. FINDINGS: The common femoral, superficial femoral and popliteal veins demonstrate normal respiratory variation, augmentation and compressibility. Color flow is also seen within the posterior tibial, pe roneal, greater saphenous and profunda veins. IMPRESSION: 1: No lower extremity deep venous thrombosis. Reviewed, dictated and finalized at location A. HER LEARNING DISABLED
--- NOTE | 2021-09-24 15:29 | ED.EXTPRO ---
HPI - Extremity Problem General Chief complaint: Extremity Problem,Nontraumatic Stated complaint: black spots on right foot Time Seen by Provider: 09/24/21 15:16 Source: patient Mode of arrival: ambulatory Limitations: no limitations History of Present Illness HPI Narrative: Patient is an 81-year-old male sent here from the assisted living facility due to black discoloration of his 2ND and FIFTH digit of the right foot. Patient states that he did not even noticed it, does not know when it started. Patient denies any foot pain, increased swelling, fever or chills. Patient denies any chest pain, shortness of breath, or leg pain. Related Data Home Medications Medication Instructions Recorded Confirmed omega-3 fatty acids 1,000 mg 1,000 mg PO BID 09/17/19 07/28/21 capsule niacin 500 mg tablet 500 mg PO DAILY tablet 05/04/21 07/28/21 aspirin 09/24/21 escitalopram oxalate mg 09/24/21 finasteride mg 09/24/21 furosemide 09/24/21 lisinopril 09/24/21 Allergies Allergy/AdvReac Type Severity Reaction Status Date / Time No Known Allergies Allergy Verified 09/24/21 16:01 Review of Systems Review of Systems: All systems reviewed & are unremarkable except as noted in HPI and below Constitutional: Constitutional: Denies body ache(s), Denies chills, Denies excessive sweating, Denies fatigue, Denies fever(s), Denies headache(s), Denies lethargy, Denies malaise, Denies weakness and Denies weight loss Eyes: Eyes: Denies blurry vision, Denies change in vision and Denies loss of vision ENT: Denies dizziness, Denies ear discharge, Denies headache(s), Denies lip swelling, Denies epistaxis, Denies nasal congestion, Denies neck pain, Denies throat swelling and Denies tongue swelling Cardiovascular: Cardiovascular: Denies chest pain, Denies chest pain at rest, Denies chest pain with activity, Denies diaphoresis, Denies rapid heart rate, Denies edema, Denies irregular heart rhythm, Denies lightheadedness, Denies palpitations, Denies dyspnea and Denies dyspnea on exertion Respiratory: Respiratory: Denies chest congestion, Denies cough, Denies hemoptysis, Denies dyspnea and Denies dyspnea on exertion Gastrointestinal: Gastrointestinal: Denies abdominal pain, Denies melena, Denies hematochezia, Denies diarrhea, Denies nausea, Denies vomiting and Denies hematemesis Musculoskeletal: Musculoskeletal: Denies abnormal gait, Denies deformity, Denies joint swelling, Denies limited range of motion, Denies neck pain and Denies numbness Neurologic: Denies Abnormal speech present, Denies abnormal gait, Denies confusion, Denies dizziness, Denies headache(s), Denies focal weakness, Denies loss of vision, Denies numbness, Denies Other visual disturbances, Denies Sensory deficit (Neuro) and Denies weakness Psychiatric: Psychiatric: Denies confusion, Denies depression, Denies auditory hallucinations, Denies homicidal ideation and Denies suicidal ideation Endocrine: Endocrine: Denies cold intolerance, Denies excessive sweating, Denies fatigue, Denies heat intolerance and Denies palpitations Hematologic/Lymphatic: Hematologic/Lymphatic: Denies easy bleeding and Denies easy bruising Allergic/Immunologic: Allergic/Immunologic: Denies lip swelling, Denies throat swelling and Denies tongue swelling PMFSH Past Medical History Medical History Abnormal CT scan, colon Actinic keratosis Benign prostatic hyperplasia Bilateral primary osteoarthritis of hip Bladder stones Chronic kidney disease, stage 3 Baseline creatinine ranges between 1.40 and 1.60. 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
[2021-09-24 15:53] VITALS: BP 143/87; PULSE 87; RESP 16; TEMP 36.3; O2SAT 97
[2021-09-24 15:59] LABS: Basophils Percent Auto 0.2 % (0.2-1.2); Eosinophils Percent Auto 0.5 % (0-4.4); Hematocrit 49.1 % (42.0-52.0); Hemoglobin 14.9 g/dL (14.0-18.0); Immature Granulocyte Absolute 0.05 K/mm3 (0.00-0.031); Immature Granulocyte Percent A 0.6 % (0-0.5); Lymphocytes Absolute Auto 0.81 K/mm3 (0.9-3.2); Lymphocytes Percent Auto 9.1 % (18.3-44.2); Mean Corpuscular HGB Conc 30.3 g/dl (32-36); Mean Corpuscular Hemoglobin 29.4 pg (26-34); Mean Platelet Volume 10.5 fl (7.4-10.4); Monocytes Absolute Auto 0.8 K/mm3 (0.1-0.6); Monocytes Percent Auto 8.7 % (2.6-8.5); Neutrophils Absolute Auto 7.2 K/mm3 (1.3-6.7); Neutrophils Percent Auto 80.9 % (45.5-73.1); Platelet Count Result 207 k/mm3 (150-375); Red Blood Count 5.06 M/mm3 (4.6-6.20); Red Cell Distribution Width 17.1 % (11.5-14.5); White Blood Count 8.9 K/mm3 (4.5-10.0)
[2021-09-24 17:22] LABS: Alanine Aminotransferase 20 U/L (4-50); Albumin Level 3.9 g/dL (3.5-5.1); Alkaline Phosphatase 89 U/L (38-126); Anion Gap 5 mmol/L (8-16); Aspartate Amino Transferase 23 U/L (17-59); Bilirubin,Total 0.8 mg/dL (0.2-1.3); Blood Urea Nitrogen 31 mg/dL (9-20); Calcium 9.7 mg/dL (8.4-10.2); Carbon Dioxide 26 mmol/L (22-30); Chloride 106 mmol/L (98-107); Estimated CRCL calculation 62 ml/min; Estimated Glomerular Filt Rate > 60; Glucose 106 mg/dL (65-110); Potassium 4.3 mmol/L (3.4-5.0); Sodium 137 mmol/L (137-145)
[2021-09-24 18:00] LABS: SARS-CoV-2 RNA PCR Negative
--- NOTE | 2021-09-24 19:00 | PM.IMHP ---
H&P: HPI History of Present Illness Date/Time: 09/24/21 19:00 Chief Complaint: Discoloration of toes. Narrative: This is a very pleasant 81-year-old male with history of hypertension, dyslipidemia, prediabetes, chronic kidney disease, and benign prostatic hyperplasia who presented to the emergency department today from [facility] for evaluation after he was found to have discolored toes. Today staff at the rehab facility were putting compression stockings on the patient at which time they noticed darkish discolorations on his right second and fifth toes. The patient had not noticed that before today. He does mention however that about 3 weeks ago he sustained a fall and had an abrasion on his left first toe though he does not think he had abrasions on the other toes. Imaging done today on arrival to the emergency department showed findings of septic arthritis in the second and fifth right MTP joints with evidence of underlying osteomyelitis and he is being admitted in this setting. The patient has no complaints and he specifically denies pain at the above sites. He also denies fever, chills, sweats, nausea, and vomiting. Review of Systems Review of Systems: Twelve systems were reviewed. No recent cold or flu symptoms. He denies sick contacts. He has been at the rehab facility for several weeks as he is having difficulties caring for himself at home. He has injured his shoulder couple of months ago as having a hard time lifting it up due to pain. Patient reports that he has had extensive workup for that including stroke workup which was reportedly unremarkable. He is also limited due to debilitating left hip pain due to severe osteoarthritis. In fact he apparently has an upcoming appointment with Dr. Metzger or Dr. Mccormick for evaluation of both. He denies numbness and tingling in the legs. He denies claudication and he has no known history of peripheral vascular disease though it looks like he had mild abnormalities on TAMI a couple of years ago. He has chronic lower extremity edema which is unchanged. Except as documented, all other systems were reviewed and are negative. ON LICENSE OF [facility] Past Medical History Medical History (Updated 09/24/21 @ 23:44 by Laina Petty PA-C) Actinic keratosis Benign prostatic hyperplasia Bilateral primary osteoarthritis of hip Bladder stones Chronic kidney disease, stage 3 Baseline creatinine ranges between 1.40 and 1.60. 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 Surgical History Surgical History History of arthroplasty of left knee History of arthroscopy of both knees History of colonoscopy with polypectomy History of cystoscopy History of laparoscopic cholecystectomy (2013) History of lithotripsy History of nasal septoplasty (2006) With bilateral inferior turbinectomy. History of transurethral resection of prostate History of ventral hernia repair (2005) Status post excision of lipoma Anterior abdominal wall. Family History Family History Father Acute myocardial infarction Mother Breast cancer Hypertension Sibling Leukemia Sibling Lung cancer Social History Social History (Updated 09/24/21 @ 21:49 by Laina Petty PA-C) Social History: Surrogate decision maker: Kishore Puckettntyrkerry Griffiths, son. Code status: Full code. Smoking status: Never smoker Second hand tobacco smoke exposure: Yes Alcohol intake: never Substance use: never Substance use type: does not use Additional living arrangements comments: The patient lives in his own home in [place] though he is currently at [facility] for rehab. 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 He enjoys fixing things, and
[2021-09-24 19:21] VITALS: BP 145/90; PULSE 98; RESP 16; TEMP 36.9; O2SAT 95
[2021-09-24 19:49] VITALS: BMI 32.5
[2021-09-24 19:50] VITALS: BP 136/53; PULSE 79; RESP 17; TEMP 36.4; O2SAT 97
--- NOTE | 2021-09-24 19:57 | ADMGEN ---
This patient, Kishore Koroma Sr., was admitted to 2 Medical Room 259-01 @1945. Patient/family oriented to hospital policies and general routines including ID bracelet, bed and alarms, visiting hours, pain management, procedures, bathroom and other care routines, personal items, smoking policy, room service/diet, and visiting hours. Information on how to activate the Rapid Response Team has been discussed. Patient/Family are encouraged to report perceived risks to care and to ask questions if they do not understand what they are told or what they should do.
[2021-09-24] MEDS: LACTATED RINGERS 1,000 ML 100 ML IV CONT (20:23)
[2021-09-24 21:14] LABS: Glucose Point of Care 160 mg/dl (65-105)
[2021-09-24 22:36] LABS: Hemoglobin A1C 6.5 % (<5.7)
[2021-09-25 05:44] VITALS: BP 143/86; PULSE 70; RESP 17; TEMP 36.2; O2SAT 100
[2021-09-25 05:44] LABS: Hematocrit 45.1 % (42.0-52.0); Hemoglobin 13.6 g/dL (14.0-18.0); Mean Corpuscular HGB Conc 30.2 g/dl (32-36); Mean Corpuscular Hemoglobin 29.4 pg (26-34); Mean Corpuscular Volume 97.6 fl (80-100); Mean Platelet Volume 10.4 fl (7.4-10.4); Platelet Count Result 171 k/mm3 (150-375); Red Blood Count 4.62 M/mm3 (4.6-6.20); Red Cell Distribution Width 16.7 % (11.5-14.5); White Blood Count 6.9 K/mm3 (4.5-10.0)
[2021-09-25 05:49] LABS: Glucose Point of Care 100 mg/dl (65-105)
[2021-09-25 06:11] LABS: Alanine Aminotransferase 16 U/L (4-50); Albumin Level 3.1 g/dL (3.5-5.1); Alkaline Phosphatase 78 U/L (38-126); Anion Gap 0 mmol/L (8-16); Aspartate Amino Transferase 18 U/L (17-59); Bilirubin,Total 0.6 mg/dL (0.2-1.3); Blood Urea Nitrogen 27 mg/dL (9-20); Calcium 9.4 mg/dL (8.4-10.2); Carbon Dioxide 31 mmol/L (22-30); Chloride 107 mmol/L (98-107); Estimated CRCL calculation 62 ml/min; Estimated Glomerular Filt Rate > 60; Glucose 99 mg/dL (65-110); Magnesium 2.3 mg/dL (1.6-2.3); Sodium 138 mmol/L (137-145)
[2021-09-25 07:42] LABS: Glucose Point of Care 100 mg/dl (65-105)
[2021-09-25] MEDS: ASPIRIN 81 MG ENTERIC TABLET 162 MG PO (09:17)
[2021-09-25] MEDS: lisinopriL 20 MG TABLET 40 MG PO (09:18)
[2021-09-25] MEDS: FUROSEMIDE 40 MG TABLET PO (09:18)
[2021-09-25] MEDS: OMEGA 3 POLYUNSAT FATTY ACIDS 1 GM CAP PO ×2 (09:18→16:50)
[2021-09-25] MEDS: ESCITALOPRAM OXALATE 10 MG TABLET PO (09:18)
[2021-09-25] MEDS: FINASTERIDE 5 MG TABLET PO (09:18)
[2021-09-25] MEDS: NIACIN SA 500 MG TABLET PO (09:18)
[2021-09-25] MEDS: ENOXAPARIN 40 MG/0.4 ML SYRINGE SUB-Q (09:18)
[2021-09-25 09:20] VITALS: BP 144/73; PULSE 88
--- NOTE | 2021-09-25 10:27 | PM.IMPN ---
Progress Note: A&P Assessment and Plan (1) Septic arthritis of interphalangeal joint of toe: Code(s): M00.9 - Pyogenic arthritis, unspecified Status: Acute (2) Acute osteomyelitis of toe of right foot: Code(s): M86.171 - Other acute osteomyelitis, right ankle and foot Status: Acute (3) Essential hypertension: Onset Date: Unknown Code(s): I10 - Essential (primary) hypertension Status: Acute (4) Type 2 diabetes mellitus: Code(s): E11.9 - Type 2 diabetes mellitus without complications Status: Acute Additional Plan The patient was brought in today for evaluation after staff at his rehab facility noticed discoloration to his toes as detailed in HPI. X-rays of the right foot show findings consistent with right 2nd and 5th MTP joint septic arthritis and osteomyelitis. He has thus been started on imipenem and vancomycin for initial broad-spectrum antibiotic coverage. Given the septic joints, I think he probably needs to be seen by an orthopedic surgeon though per protocol I will ask the general surgeons to see him for initial consultation. Check ABIs as I suspect he probably has some form of peripheral vascular disease. Blood pressures were reviewed and they have been stable. Random glucose today was in the 160s and his hemoglobin A1c today was 6.5%. Will initiate sliding scale insulin and try to keep tight glucose control. His home medications will be reviewed and resumed as appropriate. 09/25/2021 interval history: patient with foot injury along right 2nd and 5th to an x-ray of the foot is suspicious septic arthritis possibly osteomyelitis patient started imipenem and vancomycin patient be seen orthopedic surgeon and further recommendation to follow, currently patient denies any fever or chills pain is improving, will have a PT OT evaluate the patient and further recommendation to follow Subjective Date/time seen: 09/25/21 10:27 Review of Systems Review of Systems: HPI: This is a very pleasant 81-year-old male with history of hypertension, dyslipidemia, prediabetes, chronic kidney disease, and benign prostatic hyperplasia who presented to the emergency department today from [facility] for evaluation after he was found to have discolored toes. Today staff at the rehab facility were putting compression stockings on the patient at which time they noticed darkish discolorations on his right second and fifth toes. The patient had not noticed that before today. He does mention however that about 3 weeks ago he sustained a fall and had an abrasion on his left first toe though he does not think he had abrasions on the other toes. Imaging done today on arrival to the emergency department showed findings of septic arthritis in the second and fifth right MTP joints with evidence of underlying osteomyelitis and he is being admitted in this setting. The patient has no complaints and he specifically denies pain at the above sites. He also denies fever, chills, sweats, nausea, and vomiting. 09/25/2021 interval history: patient with foot injury along right 2nd and 5th to an x-ray of the foot is suspicious septic arthritis possibly osteomyelitis patient started imipenem and vancomycin patient be seen orthopedic surgeon and further recommendation to follow, currently patient denies any fever or chills pain is improving, will have a PT OT evaluate the patient and further recommendation to follow All systems reviewed & are unremarkable except as noted in HPI and below Exam Narrative: moderately obese Patient is comfortable, NAD HEENT: eyes are clear and none icteric LUNGS: normal respiratory effort HEART: RR S1S2 ABD: BS+, Soft and nontender Lower extremities: no edema MS: right foot 2nd distal folic there is a lesion appeared to be necrosis SKIN: nonjaundiced Neuro: grossly intact. Objective Data Vital Signs Vital Signs: Vital Signs - 24 hr 09/24/21 15:53 09/24/21 19:21 09/24/21 19:50 Temperat
[2021-09-25 11:22] LABS: Glucose Point of Care 92 mg/dl (65-105)
[2021-09-25 14:35] VITALS: BP 138/65; PULSE 75; RESP 16; TEMP 36.9; O2SAT 95
[2021-09-25 16:34] LABS: Glucose Point of Care 102 mg/dl (65-105)
--- NOTE | 2021-09-25 17:05 | PM.CNGS ---
Assessment and Plan Assessment and plan (1) Skin lesion of right lower extremity: Onset Date: Unknown Code(s): L98.9 - Disorder of the skin and subcutaneous tissue, unspecified Status: Acute Assessment and Plan: Carriers noticed dark spots on the end of his right 5th and 2nd toes. These are unknown etiology possibly small injuries or blood blisters. Specifically the patient has noted to me that he had had previous surgery on both to joints in question on his right foot x-ray. Have discussed the x-ray report and films with Dr. Mosqueda the date of this consultation. Since there are no skin wounds adjacent to the MCP joints at either the 2nd or 5th metatarsal head level he believes that this is probably scar tissue and resultant from the previous surgery 5 years ago. He does not believe that there is osteomyelitis or septic arthritis since there is no clinically palpable abnormality or pain and there is no skin lesion near these joints. Believe this patient can be taken off antibiotics and followed for the small wounds on his toe tips the specially in view of his normal arterial Doppler studies. (2) Type 2 diabetes mellitus: Code(s): E11.9 - Type 2 diabetes mellitus without complications Status: Acute Assessment and Plan: New finding of an elevated hemoglobin A1c merits continued close follow-up with PCP at his assisted living [facility] (3) Bilateral primary osteoarthritis of hip: Onset Date: ~06/2021 Code(s): M16.0 - Bilateral primary osteoarthritis of hip Status: Acute Assessment and Plan: The patient is already scheduled to see Dr. Emil Tabor on 09/26/2021 patient could be released at a time when he could make his appointment if the primary service wishes. Otherwise we could ask Dr. Ewing to see the patient prior to discharge and also ask his opinion regarding the changes on x-ray of the right foot how those may or may not be related to the small black spots in the end of his toes. (4) Obesity (BMI 30-39.9): Code(s): E66.9 - Obesity, unspecified Status: Acute Assessment and Plan: Recommend weight loss to help any of his current problems including hypertension, diabetes, and his venous stasis of the lower extremity on the right. (5) Chronic kidney disease (CKD), stage III (moderate): Onset Date: Unknown Qualifiers: Chronic kidney disease stage 3 subtype: stage 3b (GFR 30-44) Qualified Code(s): N18.32 - Chronic kidney disease, stage 3b Code(s): N18.30 - Chronic kidney disease, stage 3 unspecified Status: Acute Assessment and Plan: This probably contributes to the edema inhis right lower extremity. Patient is being followed for this and will need to be careful with his possible neuropathy of the lower extremities in view of this plus his new diagnosis of diabetes type 2 (6) Essential hypertension: Onset Date: Unknown Code(s): I10 - Essential (primary) hypertension Status: Acute Assessment and Plan: continue current medications and treatment Additional Plan Due to being in surgery I did not get to see the patient until late in the day. Therefore, Sunday will try to correspond with the primary service and related verbally these findings and consideration for discharge with no need for antibiotics in view of the patient's clinical situation. History of Present Illness Consult details Consult date: 09/25/21 Reason for consult: wound care ( small black spots on tip of 2nd and 5th right toes) Requesting physician: Rabia Cesar MD Narrative: This is a very pleasant 81-year-old White male with a history of hypertension, dyslipidemia, prediabetes, chronic kidney disease, arthritis, and benign prostatic hyperplasia who presented to the emergency department today from [facility] for evaluation after he was found to have discolored 2nd and 5th right toes. Today staff at the rehab f
[2021-09-25 20:00] VITALS: PULSE 87; RESP 20; O2SAT 98
[2021-09-25 22:00] VITALS: BP 155/88; PULSE 87; RESP 20; TEMP 36.2; O2SAT 98
[2021-09-25 22:14] LABS: Glucose Point of Care 102 mg/dl (65-105)
[2021-09-26 06:00] VITALS: BP 149/99; PULSE 89; RESP 18; TEMP 36.7; O2SAT 96
[2021-09-26 06:03] LABS: Estimated CRCL calculation 62 ml/min; Estimated Glomerular Filt Rate > 60
[2021-09-26 07:56] LABS: Glucose Point of Care 113 mg/dl (65-105)
[2021-09-26] MEDS: ASPIRIN 81 MG ENTERIC TABLET 162 MG PO (08:16)
[2021-09-26] MEDS: FINASTERIDE 5 MG TABLET PO (08:17)
[2021-09-26] MEDS: ESCITALOPRAM OXALATE 10 MG TABLET PO (08:17)
[2021-09-26] MEDS: FUROSEMIDE 40 MG TABLET PO (08:17)
[2021-09-26] MEDS: lisinopriL 20 MG TABLET 40 MG PO (08:17)
[2021-09-26] MEDS: OMEGA 3 POLYUNSAT FATTY ACIDS 1 GM CAP PO ×2 (08:17→16:59)
[2021-09-26] MEDS: ENOXAPARIN 40 MG/0.4 ML SYRINGE SUB-Q (08:17)
[2021-09-26] MEDS: NIACIN SA 500 MG TABLET PO (08:17)
[2021-09-26 10:30] VITALS: O2SAT 93
[2021-09-26 11:52] LABS: Glucose Point of Care 110 mg/dl (65-105)
--- NOTE | 2021-09-26 12:17 | PM.IMPN ---
Progress Note: A&P Assessment and Plan (1) Septic arthritis of interphalangeal joint of toe: Code(s): M00.9 - Pyogenic arthritis, unspecified Status: Acute (2) Acute osteomyelitis of toe of right foot: Code(s): M86.171 - Other acute osteomyelitis, right ankle and foot Status: Acute (3) Essential hypertension: Onset Date: Unknown Code(s): I10 - Essential (primary) hypertension Status: Acute (4) Type 2 diabetes mellitus: Code(s): E11.9 - Type 2 diabetes mellitus without complications Status: Acute Additional Plan The patient was brought in today for evaluation after staff at his rehab facility noticed discoloration to his toes as detailed in HPI. X-rays of the right foot show findings consistent with right 2nd and 5th MTP joint septic arthritis and osteomyelitis. He has thus been started on imipenem and vancomycin for initial broad-spectrum antibiotic coverage. Given the septic joints, I think he probably needs to be seen by an orthopedic surgeon though per protocol I will ask the general surgeons to see him for initial consultation. Check ABIs as I suspect he probably has some form of peripheral vascular disease. Blood pressures were reviewed and they have been stable. Random glucose today was in the 160s and his hemoglobin A1c today was 6.5%. Will initiate sliding scale insulin and try to keep tight glucose control. His home medications will be reviewed and resumed as appropriate. 09/25/2021 interval history: patient with foot injury along right 2nd and 5th to an x-ray of the foot is suspicious septic arthritis possibly osteomyelitis patient started imipenem and vancomycin patient be seen orthopedic surgeon and further recommendation to follow, currently patient denies any fever or chills pain is improving, will have a PT OT evaluate the patient and further recommendation to follow. 09/26/2021 interval history: patient with foot injury along right 2nd and 5th to an x-ray of the foot is suspicious septic arthritis possibly osteomyelitis patient started imipenem and vancomycin, Blood culture no growth so far, there are no open so on the foot to collect sample, patient will be seen podiatrics surgeon and further recommendation to follow, currently patient denies any fever or chills pain is improving, will have a PT OT evaluate the patient and further recommendation to follow Subjective Date/time seen: 09/26/21 12:17 The patient was brought in today for evaluation after staff at his rehab facility noticed discoloration to his toes as detailed in HPI. X-rays of the right foot show findings consistent with right 2nd and 5th MTP joint septic arthritis and osteomyelitis. He has thus been started on imipenem and vancomycin for initial broad-spectrum antibiotic coverage. Given the septic joints, I think he probably needs to be seen by an orthopedic surgeon though per protocol I will ask the general surgeons to see him for initial consultation. Check ABIs as I suspect he probably has some form of peripheral vascular disease. Blood pressures were reviewed and they have been stable. Random glucose today was in the 160s and his hemoglobin A1c today was 6.5%. Will initiate sliding scale insulin and try to keep tight glucose control. His home medications will be reviewed and resumed as appropriate. 09/25/2021 interval history: patient with foot injury along right 2nd and 5th to an x-ray of the foot is suspicious septic arthritis possibly osteomyelitis patient started imipenem and vancomycin patient be seen orthopedic surgeon and further recommendation to follow, currently patient denies any fever or chills pain is improving, will have a PT OT evaluate the patient and further recommendation to follow 09/26/2021 interval history: patient with foot injury along right 2nd and 5th to an x-ray of the foot is suspicious septic arthritis possibly osteomyelitis patient started imipenem and vancomycin, Blood culture no growt
[2021-09-26 14:00] VITALS: BP 123/76; PULSE 89; RESP 18; TEMP 36.7; O2SAT 96
[2021-09-26 17:10] LABS: Glucose Point of Care 135 mg/dl (65-105)
--- NOTE | 2021-09-26 20:06 | PM.PNGS ---
Progress Note: A&P Assessment and Plan (1) Skin lesion of right lower extremity: Onset Date: Unknown Code(s): L98.9 - Disorder of the skin and subcutaneous tissue, unspecified Status: Acute Assessment and Plan: Mejía-givers noticed dark spots on the end of his right 5th and 2nd toes. These are of unknown etiology possibly small injuries or blood blisters. Specifically the patient has noted to me that he had had previous surgery on both to joints in question on his right foot x-ray. I have discussed the x-ray report and films with Dr. Mosqueda the date of this consultation. Since there are no skin wounds adjacent to the MCP joints at either the 2nd or 5th metatarsal head level he believes that this is probably scar tissue and resultant from the previous surgery 5 years ago not from osteomyelitis or septic arthritis. He does not believe that there is osteomyelitis or septic arthritis since there is no clinically palpable abnormality or pain and there is no skin lesion near these joints. I believe and recommend that this patient can be taken off antibiotics and followed for the small wounds on his toe tips the specially in view of his normal arterial Doppler studies. (2) Type 2 diabetes mellitus: Code(s): E11.9 - Type 2 diabetes mellitus without complications Status: Acute Assessment and Plan: New finding of an elevated hemoglobin A1c merits continued close follow-up with PCP at his assisted living [facility] (3) Bilateral primary osteoarthritis of hip: Onset Date: ~06/2021 Code(s): M16.0 - Bilateral primary osteoarthritis of hip Status: Acute Assessment and Plan: The patient is already scheduled to see Dr. Emil Tabor on 09/26/2021 patient could be released at a time when he could make his appointment if the primary service wishes. Otherwise we could ask Dr. Ewing to see the patient prior to discharge and also ask his opinion regarding the changes on x-ray of the right foot how those may or may not be related to the small black spots in the end of his toes. (4) Obesity (BMI 30-39.9): Code(s): E66.9 - Obesity, unspecified Status: Acute Assessment and Plan: Recommend weight loss to help any of his current problems including hypertension, diabetes, and his venous stasis of the lower extremity on the right. (5) Chronic kidney disease (CKD), stage III (moderate): Onset Date: Unknown Qualifiers: Chronic kidney disease stage 3 subtype: stage 3b (GFR 30-44) Qualified Code(s): N18.32 - Chronic kidney disease, stage 3b Code(s): N18.30 - Chronic kidney disease, stage 3 unspecified Status: Acute Assessment and Plan: This probably contributes to the edema inhis right lower extremity. Patient is being followed for this and will need to be careful with his possible neuropathy of the lower extremities in view of this plus his new diagnosis of diabetes type 2 (6) Essential hypertension: Onset Date: Unknown Code(s): I10 - Essential (primary) hypertension Status: Acute Assessment and Plan: continue current medications and treatment Additional Plan Due to being in surgery I did not get to see the patient until late in the day. Therefore, Sunday will try to correspond with the primary service and related verbally these findings and consideration for discharge with no need for antibiotics in view of the patient's clinical situation. Subjective Subjective Date/Time Seen: 09/26/21 17:06 patient is sitting up in the chair finish in his supper when I entered the room. He states he does not have any pain in his right foot. She states the nurses have not been having him use his compression hose over the last 2 days. He has been using the SCD hose that her on the bed. Review of Systems Review of Systems: All systems reviewed & are unremarkable except as noted in HPI and below Constitutional: Constitutiona
[2021-09-26 20:37] LABS: Glucose Point of Care 112 mg/dl (65-105)
[2021-09-26 22:00] VITALS: BP 149/70; PULSE 63; RESP 20; TEMP 37.2; O2SAT 99
[2021-09-27 06:00] VITALS: BP 136/75; PULSE 84; RESP 18; TEMP 36.5; O2SAT 97
--- NOTE | 2021-09-27 07:08 | P.CDI_ITS ---
CDI Query Clarification Request -Septic arthritis joint of toe and acute osteomyelitis of toe right foot has been documented by hospitalists -09/24 foot X ray has an addendum that states, Additional history has been obtained. The patient has had prior surgery to the right foot. There is no skin lesion near the 2nd proximal interphalangeal joint or 2nd or 5th distal interphalangeal joints. The radiographs demonstrate bone loss of the head of the 2nd proximal phalanx and heads of the 2nd and 5th metatarsals. There is no bone loss of the bases of the adjacent distal bones to suggest inflammatory or septic arthritis as the etiology. These findings are likely from prior surgery. - Dr Lane has documented, Have discussed the x-ray report and films with Dr. Mosqueda the date of this consultation. Since there are no skin wounds adjacent to the MCP joints at either the 2nd or 5th metatarsal head level he believes that this is probably scar tissue and resultant from the previous surgery 5 years ago. He does not believe that there is osteomyelitis or septic arthritis since there is no clinically palpable abnormality or pain and there is no skin lesion near these joints. and Believe this patient can be taken off antibiotics and followed for the small wounds on his toe tips the specially in view of his normal arterial Doppler studies Please clarify if septic arthritis and acute osteomyelitis of toe have been ruled in, ruled out, or unable to determine. <Jade Chong RN - Last Filed: 09/27/21 07:14> Clarified Diagnosis (1) Septic arthritis of interphalangeal joint of toe: Code(s): M00.9 - Pyogenic arthritis, unspecified <Jade Chong RN - Last Filed: 09/27/21 07:14> Status: Acute <Jade Chong RN - Last Filed: 09/27/21 07:14> Assessment and Plan: there was no radio graphic evidence of septic arthritis or osteomyelitis, patient is referred to yard motor operator <Rabia Cesar MD - Last Filed: 10/02/21 14:52>
[2021-09-27 08:03] LABS: Glucose Point of Care 180 mg/dl (65-105)
[2021-09-27 08:30] VITALS: BP 133/80; PULSE 90; RESP 18; TEMP 36.2; O2SAT 95
[2021-09-27] MEDS: FINASTERIDE 5 MG TABLET PO (09:04)
[2021-09-27] MEDS: ESCITALOPRAM OXALATE 10 MG TABLET PO (09:04)
[2021-09-27] MEDS: ASPIRIN 81 MG ENTERIC TABLET 162 MG PO (09:04)
[2021-09-27] MEDS: OMEGA 3 POLYUNSAT FATTY ACIDS 1 GM CAP PO ×2 (09:04→16:36)
[2021-09-27] MEDS: FUROSEMIDE 40 MG TABLET PO (09:04)
[2021-09-27] MEDS: lisinopriL 20 MG TABLET 40 MG PO (09:04)
[2021-09-27] MEDS: NIACIN SA 500 MG TABLET PO (09:04)
[2021-09-27] MEDS: ENOXAPARIN 40 MG/0.4 ML SYRINGE SUB-Q (09:04)
[2021-09-27 11:25] LABS: Glucose Point of Care 122 mg/dl (65-105)
--- NOTE | 2021-09-27 12:39 | PM.IMPN ---
Progress Note: A&P Additional Plan The patient was brought in today for evaluation after staff at his rehab facility noticed discoloration to his toes as detailed in HPI. X-rays of the right foot show findings consistent with right 2nd and 5th MTP joint septic arthritis and osteomyelitis. He has thus been started on imipenem and vancomycin for initial broad-spectrum antibiotic coverage. Given the septic joints, I think he probably needs to be seen by an orthopedic surgeon though per protocol I will ask the general surgeons to see him for initial consultation. Check ABIs as I suspect he probably has some form of peripheral vascular disease. Blood pressures were reviewed and they have been stable. Random glucose today was in the 160s and his hemoglobin A1c today was 6.5%. Will initiate sliding scale insulin and try to keep tight glucose control. His home medications will be reviewed and resumed as appropriate. 09/25/2021 interval history: patient with foot injury along right 2nd and 5th to an x-ray of the foot is suspicious septic arthritis possibly osteomyelitis patient started imipenem and vancomycin patient be seen orthopedic surgeon and further recommendation to follow, currently patient denies any fever or chills pain is improving, will have a PT OT evaluate the patient and further recommendation to follow. 09/26/2021 interval history: patient with foot injury along right 2nd and 5th to an x-ray of the foot is suspicious septic arthritis possibly osteomyelitis patient started imipenem and vancomycin, Blood culture no growth so far, there are no open so on the foot to collect sample, patient will be seen podiatrics surgeon and further recommendation to follow, currently patient denies any fever or chills pain is improving, will have a PT OT evaluate the patient and further recommendation to follow 09/27/2021 interval history: patient with foot injury along right 2nd and 5th to an x-ray of the foot is suspicious septic arthritis possibly osteomyelitis patient started imipenem and vancomycin, Blood culture no growth so far, there are no open sore on the foot to collect sample, there is no Podiatry surgeon in the hospital, plan is to discharge the patient tomorrow and patient will follow-up with meter reading clerk as outpatient and further recommendation to follow, currently patient denies any fever or chills pain is improving, will have a PT OT evaluate the patient and further recommendation to follow. Subjective Date/time seen: 09/27/21 12:39 09/25/2021 interval history: patient with foot injury along right 2nd and 5th to an x-ray of the foot is suspicious septic arthritis possibly osteomyelitis patient started imipenem and vancomycin patient be seen orthopedic surgeon and further recommendation to follow, currently patient denies any fever or chills pain is improving, will have a PT OT evaluate the patient and further recommendation to follow. 09/26/2021 interval history: patient with foot injury along right 2nd and 5th to an x-ray of the foot is suspicious septic arthritis possibly osteomyelitis patient started imipenem and vancomycin, Blood culture no growth so far, there are no open so on the foot to collect sample, patient will be seen podiatrics surgeon and further recommendation to follow, currently patient denies any fever or chills pain is improving, will have a PT OT evaluate the patient and further recommendation to follow. 09/27/2021 interval history: patient with foot injury along right 2nd and 5th to an x-ray of the foot is suspicious septic arthritis possibly osteomyelitis patient started imipenem and vancomycin, Blood culture no growth so far, there are no open sore on the foot to collect sample, there is no Podiatry surgeon in the hospital, plan is to discharge the patient tomorrow and patient will follow-up with meter reading clerk as outpatient and further recommendation to follow, currently patient denies any fever or chills pain is improving, will
[2021-09-27 14:00] VITALS: BP 130/76; PULSE 86; RESP 18; TEMP 36.9; O2SAT 97
[2021-09-27 16:19] LABS: Glucose Point of Care 103 mg/dl (65-105)
[2021-09-27 21:03] LABS: Glucose Point of Care 121 mg/dl (65-105)
[2021-09-27 22:00] VITALS: BP 136/81; PULSE 86; RESP 18; TEMP 36.7; O2SAT 97
[2021-09-28 00:10] LABS: Vancomycin Trough 19.5 ug/mL (10.0-20.0)
[2021-09-28 05:56] LABS: Estimated CRCL calculation 61 ml/min; Estimated Glomerular Filt Rate > 60
[2021-09-28 06:00] VITALS: BP 152/77; PULSE 92; RESP 18; TEMP 36.1; O2SAT 97
[2021-09-28 07:50] LABS: Glucose Point of Care 121 mg/dl (65-105)
[2021-09-28] MEDS: ASPIRIN 81 MG ENTERIC TABLET 162 MG PO (08:26)
[2021-09-28] MEDS: NIACIN SA 500 MG TABLET PO (08:30)
[2021-09-28] MEDS: OMEGA 3 POLYUNSAT FATTY ACIDS 1 GM CAP PO (08:30)
[2021-09-28] MEDS: FINASTERIDE 5 MG TABLET PO (08:30)
[2021-09-28] MEDS: lisinopriL 20 MG TABLET 40 MG PO (08:30)
[2021-09-28] MEDS: ESCITALOPRAM OXALATE 10 MG TABLET PO (08:30)
[2021-09-28] MEDS: FUROSEMIDE 40 MG TABLET PO (08:30)
[2021-09-28] MEDS: ENOXAPARIN 40 MG/0.4 ML SYRINGE SUB-Q (08:31)
--- NOTE | 2021-09-28 09:55 | PM.DS ---
DS: Admitting Diagnosis Discharge Date 09/28/2021 Admitting Diagnosis Discoloration of toes. DS: Discharge Diagnosis Discharge Diagnosis (1) Septic arthritis of interphalangeal joint of toe: Code(s): M00.9 - Pyogenic arthritis, unspecified Status: Acute (2) Acute osteomyelitis of toe of right foot: Code(s): M86.171 - Other acute osteomyelitis, right ankle and foot Status: Acute (3) Essential hypertension: Onset Date: Unknown Code(s): I10 - Essential (primary) hypertension Status: Acute (4) Type 2 diabetes mellitus: Code(s): E11.9 - Type 2 diabetes mellitus without complications Status: Acute DS: Summary Hospital Course Reason for hospitalization: Chief Complaint: Discoloration of toes. Narrative: This is a very pleasant 81-year-old male with history of hypertension, dyslipidemia, prediabetes, chronic kidney disease, and benign prostatic hyperplasia who presented to the emergency department today from [place] for evaluation after he was found to have discolored toes. Today staff at the rehab facility were putting compression stockings on the patient at which time they noticed darkish discolorations on his right second and fifth toes. The patient had not noticed that before today. He does mention however that about 3 weeks ago he sustained a fall and had an abrasion on his left first toe though he does not think he had abrasions on the other toes. Imaging done today on arrival to the emergency department showed findings of septic arthritis in the second and fifth right MTP joints with evidence of underlying osteomyelitis and he is being admitted in this setting. The patient has no complaints and he specifically denies pain at the above sites. He also denies fever, chills, sweats, nausea, and vomiting. Hospital Course: The patient was brought in today for evaluation after staff at his rehab facility noticed discoloration to his toes as detailed in HPI. X-rays of the right foot show findings consistent with right 2nd and 5th MTP joint septic arthritis and osteomyelitis. He has thus been started on imipenem and vancomycin for initial broad-spectrum antibiotic coverage. Given the septic joints, I think he probably needs to be seen by an orthopedic surgeon though per protocol I will ask the general surgeons to see him for initial consultation. Check ABIs as I suspect he probably has some form of peripheral vascular disease. Blood pressures were reviewed and they have been stable. Random glucose today was in the 160s and his hemoglobin A1c today was 6.5%. Will initiate sliding scale insulin and try to keep tight glucose control. His home medications will be reviewed and resumed as appropriate. 09/25/2021 interval history: patient with foot injury along right 2nd and 5th to an x-ray of the foot is suspicious septic arthritis possibly osteomyelitis patient started imipenem and vancomycin patient be seen orthopedic surgeon and further recommendation to follow, currently patient denies any fever or chills pain is improving, will have a PT OT evaluate the patient and further recommendation to follow. 09/26/2021 interval history: patient with foot injury along right 2nd and 5th to an x-ray of the foot is suspicious septic arthritis possibly osteomyelitis patient started imipenem and vancomycin, Blood culture no growth so far, there are no open so on the foot to collect sample, patient will be seen podiatrics surgeon and further recommendation to follow, currently patient denies any fever or chills pain is improving, will have a PT OT evaluate the patient and further recommendation to follow 09/27/2021 interval history: patient with foot injury along right 2nd and 5th to an x-ray of the foot is suspicious septic arthritis possibly osteomyelitis patient started imipenem and vancomycin, Blood culture no growth so far, there are no open sore on the foot to collect sample, there is no Podiatry surgeon in the hospit
== END 2021-09-28 11:05 | disposition home health service (06) | DRG 550 ==
LOC: ANHED 18:13 → ANH2MED 09-27 10:59
PROVIDERS: Physician Assistant; Admitting Provider Internal Medicine; Emergency Provider Emergency Medicine; PCP Emergency Medicine; Visit Provider Family Medicine
DX: M00.9 Pyogenic arthritis, unspecified (principal); E78.5 Hyperlipidemia, unspecified; Z20.822 Contact with and (suspected) exposure to COVID-19; I12.9 Hypertensive chronic kidney disease with stage 1 through stage 4 chronic kidney disease, or unspecified chronic kidney disease; E11.22 Type 2 diabetes mellitus with diabetic chronic kidney disease; N40.0 Benign prostatic hyperplasia without lower urinary tract symptoms; Z91.81 History of falling; Z79.84 Long term (current) use of oral hypoglycemic drugs; M16.0 Bilateral primary osteoarthritis of hip; N18.32 Chronic kidney disease, stage 3b; E66.9 Obesity, unspecified
CPT/HCPCS: 36415; 73630; 80053; 80202; 82565; 82948; 83036; 83605; 83735; 85025; 85027; 86140; 87040; 93922; 93970; 96365; 97161; 97165; 99285; A9270; C9803; J0743; J1650; J2543; J3370; J7040; J7120; U0003; U0005

== ENCOUNTER 2021-11-21 16:04 | Outpatient (CLI) | payer MEDICARE, SELFPAY ==
[2021-11-21 17:01] LABS: Alanine Aminotransferase 18 U/L (4-50); Albumin Level 3.8 g/dL (3.5-5.1); Alkaline Phosphatase 92 U/L (38-126); Anion Gap 6 mmol/L (8-16); Aspartate Amino Transferase 23 U/L (17-59); Bilirubin,Total 0.5 mg/dL (0.2-1.3); Blood Urea Nitrogen 37 mg/dL (9-20); Calcium 9.6 mg/dL (8.4-10.2); Carbon Dioxide 29 mmol/L (22-30); Chloride 103 mmol/L (98-107); Cholesterol 146 mg/dL (0-200); Estimated Glomerular Filt Rate 53; Glucose 93 mg/dL (65-110); HDL Direct 40 mg/dL; Potassium 4.5 mmol/L (3.4-5.0); Sodium 138 mmol/L (137-145); Triglycerides 116 mg/dL (<150)
[2021-11-21 17:11] LABS: LDL Cholesterol Direct 67 mg/dL
[2021-11-21 17:18] LABS: Hemoglobin A1C 5.8 % (<5.7)
== END 2021-11-21 16:05 | disposition home or self-care (01) ==
LOC: ANHLAB 16:07
PROVIDERS: PCP Internal Medicine; Visit Provider Nurse Practitioner
DX: E11.9 Type 2 diabetes mellitus without complications (principal); E78.5 Hyperlipidemia, unspecified
CPT/HCPCS: 36415; 80053; 80061; 83036

== ENCOUNTER 2022-02-12 18:29 | Inpatient (IN) | payer MEDICARE, SELFPAY ==
--- NOTE | ~2022-02-12 | US_ITS ---
EXAMINATION: US venous doppler LE RT DATE: 02/13/2022 11:53 INDICATION: Right lower limb swelling and cellulitis TECHNIQUE: Grayscale ultrasound images without and with compression and Doppler ultrasound images of the right lower extremity veins were obtained. COMPARISON: 09/25/2021 FINDINGS: The visualized portions of right common femoral vein, profunda (deep) femoral vein, femoral vein, pop liteal vein, peroneal trunk, posterior tibial veins, peroneal veins, gastrocnemius vein and greater s aphenous vein outflow remain patent. IMPRESSION: 1. No deep venous thrombosis in the right lower limb. Reviewed, dictated and finalized at location A.
[2022-02-12 18:25] VITALS: BP 189/100; PULSE 84; RESP 20; TEMP 37.3; O2SAT 95
--- NOTE | 2022-02-12 18:50 | ED.SKABFB ---
HPI - Skin/Abscess/Foreign Bdy General Chief complaint: Skin/Abscess/Foreign Body <Danial Almaraz APRN - Last Filed: 02/12/22 20:41> Stated complaint: RLE cellulitis <Danial Almaraz APRN - Last Filed: 02/12/22 20:41> Time Seen by Provider: 02/12/22 18:42 <Danial Almaraz APRN - Last Filed: 02/12/22 20:41> History of Present Illness HPI narrative: 81-year-old male presents to the emergency room for evaluation of right lower extremity swelling, erythema and clear drainage. Patient states the erythematous area is not sensitive to touch. Patient denies any injury or trauma to the right lower extremity. Patient states he is able to ambulate. Patient denies any swelling to his inguinal groin area. Patient denies any malaise, chills, or fever. <Danial Almaraz APRN - Last Filed: 02/12/22 20:41> Related Data Home medications: Home Medications Medication Instructions Recorded Confirmed omega-3 fatty acids 1,000 mg 1,000 mg PO BID 09/17/19 11/24/21 capsule (Fish Oil Concentrate) niacin 500 mg tablet 500 mg PO DAILY 05/04/21 11/24/21 aspirin 81 mg tablet,delayed 81 mg PO DAILY 09/24/21 11/24/21 release finasteride 5 mg tablet 5 mg PO DAILY 09/24/21 11/24/21 furosemide 40 mg tablet 40 mg PO DAILY 09/24/21 11/24/21 lisinopril 20 mg tablet 40 mg PO DAILY 09/24/21 11/24/21 tramadol 50 mg tablet tablet 02/12/22 02/12/22 <Danial Almaraz APRN - Last Filed: 02/12/22 20:41> Allergies/Adverse reactions: Allergies Allergy/AdvReac Type Severity Reaction Status Date / Time No Known Allergies Allergy Verified 02/12/22 18:34 <Danial Almaraz APRN - Last Filed: 02/12/22 20:41> Review of Systems Review of Systems: CONSTITUTIONAL: Denies fever, chills, or sweats. EYES: Denies visual changes, redness, or discharge. ENT: Denies rhinorrhea, congestion, sore throat, or otalgia. CARDIOVASCULAR: Denies chest pain, palpitations, or edema. RESPIRATORY: Denies cough or dyspnea. GASTROINTESTINAL: Denies abdominal pain, nausea, vomiting, or diarrhea. GENITOURINARY: Denies dysuria or hematuria. SKIN: Reports redness and swelling to right lower extremity MUSCULOSKELETAL: Denies back pain, joint pain, or myalgia. NEUROLOGIC: Denies headache, numbness, dizziness, or weakness. PSYCHIATRIC: Denies anxiety or depression.. <Danial Almaraz APRN - Last Filed: 02/12/22 20:41> [facility] Past Medical History Medical History: Medical History Actinic keratosis Benign prostatic hyperplasia Bilateral primary osteoarthritis of hip (~06/2021) Bladder stones Chronic kidney disease, stage 3 Baseline creatinine ranges between 1.40 and 1.60. 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 Wears glasses <Danial Almaraz APRN - Last Filed: 02/12/22 20:41> Surgical History Surgical History: Surgical History History of arthroplasty of left knee History of arthroscopy of both knees History of colonoscopy with polypectomy History of cystoscopy History of laparoscopic cholecystectomy (2013) History of lithotripsy History of nasal septoplasty (2006) With bilateral inferior turbinectomy. History of transurethral resection of prostate History of ventral hernia repair (2005) Status post excision of lipoma Anterior abdominal wall. Status post hammertoe correction OR as OP on Rt. 2nd and 5th MCP joints approx. 2017 <Danial Almaraz APRN - Last Filed: 02/12/22 20:41> Family History Family History: Family History Father Acute myocardial infarction Mother Breast cancer Hypertension Sibling Leukemia Sibling Lung cancer Other
[2022-02-12 19:05] LABS: Basophils Percent Auto 0.3 % (0.2-1.2); Eosinophils Absolute Auto 0.1 K/mm3 (0-0.3); Eosinophils Percent Auto 0.5 % (0-4.4); Hematocrit 47.8 % (42.0-52.0); Hemoglobin 14.5 g/dL (14.0-18.0); Immature Granulocyte Absolute 0.08 K/mm3 (0.00-0.031); Immature Granulocyte Percent A 0.8 % (0-0.5); Lymphocytes Absolute Auto 0.65 K/mm3 (0.9-3.2); Lymphocytes Percent Auto 6.3 % (18.3-44.2); Mean Corpuscular HGB Conc 30.3 g/dl (32-36); Mean Corpuscular Hemoglobin 27.6 pg (26-34); Mean Platelet Volume 10.2 fl (7.4-10.4); Monocytes Absolute Auto 0.7 K/mm3 (0.1-0.6); Monocytes Percent Auto 6.5 % (2.6-8.5); Neutrophils Absolute Auto 8.9 K/mm3 (1.3-6.7); Neutrophils Percent Auto 85.6 % (45.5-73.1); Platelet Count Result 186 k/mm3 (150-375); Red Blood Count 5.25 M/mm3 (4.6-6.20); Red Cell Distribution Width 18.6 % (11.5-14.5); White Blood Count 10.3 K/mm3 (4.5-10.0)
[2022-02-12 19:14] LABS: Lactic Acid Reflex 1.3 mmol/L (0.7-2.0)
[2022-02-12 19:15] LABS: Alanine Aminotransferase 30 U/L (6-50); Albumin Level 3.5 g/dL (3.5-5.1); Alkaline Phosphatase 84 U/L (38-126); Anion Gap 4 mmol/L (8-16); Aspartate Amino Transferase 25 U/L (17-59); Bilirubin,Total 0.3 mg/dL (0.2-1.3); Blood Urea Nitrogen 28 mg/dL (9-20); Calcium 9.3 mg/dL (8.4-10.2); Carbon Dioxide 30 mmol/L (22-30); Chloride 106 mmol/L (98-107); Estimated CRCL calculation 58 ml/min; Estimated Glomerular Filt Rate 58; Glucose 115 mg/dL (65-110); Sodium 140 mmol/L (137-145)
[2022-02-12 19:16] VITALS: BP 152/107; PULSE 76; RESP 20; O2SAT 97
--- NOTE | 2022-02-12 19:16 | PC.NURSE ---
Assumed care of pt at this time. Pt alert and upright on stretcher, updated on POC.
[2022-02-12 19:31] LABS: NT Pro B Type Natriuretic Pept 1250 pg/mL (5-100)
[2022-02-12 19:31] LABS: INR 1.2; Prothrombin Time 14.5 Seconds (11.1-14.7)
[2022-02-12 19:32] LABS: Partial Thromboplastin Time 31.2 SECONDS (22.3-36.8)
--- NOTE | 2022-02-12 19:52 | PM.IMHP ---
H&P: HPI History of Present Illness Date/Time: 02/12/22 19:52 Chief Complaint: Right lower extremity swelling. Narrative: This is an 81-year-old male with past medical history significant for hypertension, gastroesophageal reflux disease, myelitis, squamous cell carcinoma of the face type 2 diabetes mellitus, degenerative joint disease, chronic kidney disease. Patient presents to the emergency room from [facility] due to worsening right lower extremity redness with swelling and tenderness. Patient denies any fevers, rigors, chills, no nausea, no vomiting, no abdominal pain, no shortness of breath, no cough, no sputum production, denies any changes in his appetite has had diarrhea. Preliminary workup has been essentially nonrevealing. Patient is been admitted for further evaluation management and treatment. Review of Systems Review of Systems: Right lower extremity worsening swelling, redness, tenderness. Constitutional: Constitutional: Denies chills, Denies fatigue, Denies fever(s), Denies frequent falls, Denies lethargy, Denies malaise, Denies night sweats, Denies poor appetite and Denies weakness Eyes: Eyes: Denies change in vision ENT: Denies dysphagia, Denies vertigo, Denies dizziness and Denies odynophagia Cardiovascular: Cardiovascular: Denies chest pain, Reports pedal edema, Denies irregular heart rhythm, Reports leg edema, Denies lightheadedness, Denies radiating jaw, neck or arm pain, Denies palpitations and Denies dyspnea on exertion Respiratory: Respiratory: Denies chest congestion, Denies cough and Denies excessive phlegm production Gastrointestinal: Gastrointestinal: Denies abdominal pain, Denies dyspepsia, Denies heartburn, Reports diarrhea, Denies nausea and Denies vomiting Genitourinary: Genitourinary: Denies dysuria Musculoskeletal: Musculoskeletal: Reports other (Right lower extremity swelling tenderness and redness) Integumentary/Breasts: Skin/Breast: Reports erythema, Reports skin pain, Reports skin swelling and Reports other (Right lower extremity) Neurologic: Denies focal weakness and Denies Sensory deficit (Neuro) Psychiatric: Psychiatric: Reports no additional psychiatric complaints and Reports as per HPI Endocrine: Endocrine: Denies cold intolerance, Denies fatigue, Denies flushing, Denies heat intolerance, Denies polyphagia, Denies polydipsia and Denies palpitations Hematologic/Lymphatic: Hematologic/Lymphatic: Reports no additional hematologic/lymphatic complaints and Reports as per HPI Allergic/Immunologic: Allergic/Immunologic: Reports no additional allergic/immunologic complaints and Reports as per HPI [facility] Past Medical History Medical History (Updated 02/13/22 @ 05:17 by Luis Felipe Dobson MD) Actinic keratosis Benign prostatic hyperplasia Bilateral primary osteoarthritis of hip (~06/2021) Bladder stones Chronic kidney disease, stage 3 Baseline creatinine ranges between 1.40 and 1.60. 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 Wears glasses Surgical History Surgical History History of arthroplasty of left knee History of arthroscopy of both knees History of colonoscopy with polypectomy History of cystoscopy History of laparoscopic cholecystectomy (2013) History of lithotripsy History of nasal septoplasty (2006) With bilateral inferior turbinectomy. History of transurethral resection of prostate History of ventral hernia repair (2005) Status post excision of lipoma Anterior abdominal wall. Status post hammertoe correction OR as OP on Rt. 2nd and 5th MCP joints approx. 2017 Family History Family History Father Acute myocardial infarction Mother Breast ca
[2022-02-12 20:10] VITALS: BP 157/109; PULSE 77; RESP 18; O2SAT 97
[2022-02-12 20:55] LABS: SARS-CoV-2 RNA PCR Negative
[2022-02-12 21:10] VITALS: PULSE 77; RESP 16; O2SAT 97
[2022-02-12 21:34] VITALS: BP 168/89; PULSE 53; RESP 16; TEMP 36.4; O2SAT 97
[2022-02-12 21:35] VITALS: BMI 32.9
--- NOTE | 2022-02-12 21:55 | ADMGEN ---
This patient, Kishore Koroma Sr., was admitted to 2 Medical Room 240-01. Patient/family oriented to hospital policies and general routines including ID bracelet, bed and alarms, visiting hours, pain management, procedures, bathroom and other care routines, personal items, smoking policy, room service/diet, and visiting hours. Information on how to activate the Rapid Response Team has been discussed. Patient/Family are encouraged to report perceived risks to care and to ask questions if they do not understand what they are told or what they should do.
[2022-02-13] VITALS (7 sets, daily range): BP systolic 132–188; BP diastolic 69–92; PULSE 43–105; RESP 14–18; TEMP 35.8–36.7; O2SAT 95–99
[2022-02-13 07:37] LABS: Glucose Point of Care 95 mg/dl (65-105)
[2022-02-13] MEDS: FINASTERIDE 5 MG TABLET PO (08:46)
[2022-02-13] MEDS: traMADol HCL (*CRX) 50 MG TABLET PO ×2 (08:46→20:56)
[2022-02-13] MEDS: lisinopriL 20 MG TABLET PO (08:46)
[2022-02-13] MEDS: NIACIN SA 500 MG TABLET PO (08:46)
[2022-02-13] MEDS: OMEGA 3 POLYUNSAT FATTY ACIDS 1 GM CAP PO ×2 (08:46→17:48)
[2022-02-13] MEDS: ASPIRIN 81 MG ENTERIC TABLET PO (08:46)
--- NOTE | 2022-02-13 10:30 | PM.IMPN ---
Progress Note: A&P Assessment and Plan (1) Cellulitis: Code(s): L03.90 - Cellulitis, unspecified Status: Acute Assessment and Plan: Complaints of furthering reddening and swelling of the right lower extremity Leg is red, swollen, hot, and weeping Hx of DM2 Continue vancomycin and imipenem Wound care consult Blood cultures pending WBC 10.3 Trend labs Labs in the am Supportive care (2) Type 2 diabetes mellitus: Code(s): E11.9 - Type 2 diabetes mellitus without complications Status: Acute Assessment and Plan: Current glucose 115 A1c 5.8 Accu-Cheks AC and HS Hypoglycemia protocol Trend glucose Adjust therapy as indicated Carb consistent diet (3) Gastroesophageal reflux disease: Code(s): K21.9 - Gastro-esophageal reflux disease without esophagitis Status: Acute Assessment and Plan: Add famotidine (4) Chronic kidney disease, stage 3: Code(s): N18.30 - Chronic kidney disease, stage 3 unspecified Status: Acute Assessment and Plan: BUN/Cr 28/1.20 Baseline appears to be 1.10-1.60, within baseline Avoid nephrotoxic medications Trend BUN and creatinine No acute failure noted at this time Daily intake and output (5) Essential hypertension: Onset Date: Unknown Code(s): I10 - Essential (primary) hypertension Status: Acute Assessment and Plan: Current BP 187/80 Continue home meds lisinopril 20mg PO daily Hydralazine 10mg IV PRN with parameters Could be elevated due to current illness, infection, or fluid volume status Trend BP adjust therapy as indicated Time Spent With Patient Time with patient: Greater than 35 minutes Subjective Date/time seen: 02/13/22 1030 Interval history: 02/13/22 1030 With lying in bed. Patient stated that he has no pain in his leg even though his leg is very red swollen and draining a clear drainage. Swelling also is present with about 3+ pitting edema. Patient stated that he gets like that sometimes it is very hot. He denies any chest pain, shortness of breath, nausea, vomiting, sweats, fevers, chills. WBC is 10.3 and his BNP is slightly elevated 1250. Patient did state that this happened before and Stated that It has came back. 02/12/22? 19:52 This is an 81-year-old male with past medical history significant for hypertension, gastroesophageal reflux disease, myelitis, squamous cell carcinoma of the face type 2 diabetes mellitus, degenerative joint disease, chronic kidney disease. Patient presents [facility] the [facility] due to worsening right lower extremity redness with swelling and tenderness.? Patient denies any fevers, rigors, chills, no nausea, no vomiting, no abdominal pain, no shortness of breath, no cough, no sputum production, denies any changes in his appetite has had diarrhea.? Preliminary workup has been essentially nonrevealing.? Patient is been admitted for further evaluation management and treatment. Review of Systems Review of Systems: All systems reviewed & are unremarkable except as noted in HPI and below Exam Const: General: cooperative, comfortable, no acute distress, well developed, alert, awake and tired appearing Nutritional Appearance: overweight Orientation/consciousness: oriented to person, oriented to place, oriented to time and patient oriented x3 HENMT: Head: normal to inspection, normocephalic and atraumatic Ears: hearing grossly normal bilaterally Face and sinus: normal facial exam Eyes: General: appearance normal, both eyes and all related structures Pupils: Equal, round and reactive pupils present EOM: EOMs intact bilaterally Neck: Neck: full ROM, no lymphadenopathy and no JVD Thyroid: thyroid normal Lymphatic: no lymphadenopathy noted Resp: Effort & Inspection: normal respiratory effort and able to speak in complete sentences Auscultation: cl
--- NOTE | 2022-02-13 10:30 | P.PNIM_ITS ---
Progress Note: A&P Assessment and Plan (1) Cellulitis: Code(s): L03.90 - Cellulitis, unspecified Status: Acute Assessment and Plan: * Complaints of furthering reddening and swelling of the right lower extremity * Leg is red, swollen, hot, and weeping * Hx of DM2 * Continue vancomycin and imipenem * Wound care consult * Blood cultures pending * WBC 10.3 * Trend labs * Labs in the am * Supportive care (2) Type 2 diabetes mellitus: Code(s): E11.9 - Type 2 diabetes mellitus without complications Status: Acute Assessment and Plan: * Current glucose 115 * A1c 5.8 * Accu-Cheks AC and HS * Hypoglycemia protocol * Trend glucose * Adjust therapy as indicated * Carb consistent diet (3) Gastroesophageal reflux disease: Code(s): K21.9 - Gastro-esophageal reflux disease without esophagitis Status: Acute Assessment and Plan: * Add famotidine (4) Chronic kidney disease, stage 3: Code(s): N18.30 - Chronic kidney disease, stage 3 unspecified Status: Acute Assessment and Plan: * BUN/Cr 28/1.20 * Baseline appears to be 1.10-1.60, within baseline * Avoid nephrotoxic medications * Trend BUN and creatinine * No acute failure noted at this time * Daily intake and output (5) Essential hypertension: Onset Date: Unknown Code(s): I10 - Essential (primary) hypertension Status: Acute Assessment and Plan: * Current BP 187/80 * Continue home meds lisinopril 20mg PO daily * Hydralazine 10mg IV PRN with parameters * Could be elevated due to current illness, infection, or fluid volume status * Trend BP * adjust therapy as indicated Time Spent With Patient Time with patient: Greater than 35 minutes Subjective Date/time seen: 02/13/22 1030 Interval history: 02/13/22 1030 With lying in bed. Patient stated that he has no pain in his leg even though his leg is very red swollen and draining a clear drainage. Swelling also is present with about 3+ pitting edema. Patient stated that he gets like that sometimes it is very hot. He denies any chest pain, shortness of breath, nausea, vomiting, sweats, fevers, chills. WBC is 10.3 and his BNP is slightly elevated 1250. Patient did state that this happened before and Stated that It has came back. 02/12/22? 19:52 This is an 81-year-old male with past medical history significant for hypertension, gastroesophageal reflux disease, myelitis, squamous cell carcinoma of the face type 2 diabetes mellitus, degenerative joint disease, chronic kidney disease. Patient [facility] from [facility] due to worsening right lower extremity redness with swelling and tenderness.? Patient denies any fevers, rigors, chills, no nausea, no vomiting, no abdominal pain, no shortness of breath, no cough, no sputum production, denies any changes in his appetite has had diarrhea.? Preliminary workup has been essentially nonrevealing.? Patient is been admitted for further evaluation management and treatment. Review of Systems Review of Systems: All systems reviewed & are unremarkable except as noted in HPI and below Exam Const: General: cooperative, comfortable, no acute distress, well developed, alert, awake and tired appearing Nutritional Appearance: overweight Orientation/consciousness: oriented to person, oriented to place, oriented to time
[2022-02-13] MEDS: ENOXAPARIN 40 MG/0.4 ML SYRINGE SUB-Q (10:39)
[2022-02-13] MEDS: PANTOPRAZOLE SODIUM IV 40 MG VIAL IV PUSH (10:40)
[2022-02-13 11:12] LABS: Glucose Point of Care 122 mg/dl (65-105)
[2022-02-13 16:25] LABS: Glucose Point of Care 157 mg/dl (65-105)
[2022-02-14] VITALS (9 sets, daily range): BP systolic 129–167; BP diastolic 72–94; PULSE 73–98; RESP 16–18; TEMP 35.8–36.9; O2SAT 93–99
[2022-02-14 05:45] LABS: Basophils Percent Auto 0.4 % (0.2-1.2); Eosinophils Absolute Auto 0.1 K/mm3 (0-0.3); Eosinophils Percent Auto 0.9 % (0-4.4); Hematocrit 44.1 % (42.0-52.0); Hemoglobin 13.6 g/dL (14.0-18.0); Immature Granulocyte Absolute 0.06 K/mm3 (0.00-0.031); Immature Granulocyte Percent A 0.7 % (0-0.5); Lymphocytes Absolute Auto 0.79 K/mm3 (0.9-3.2); Lymphocytes Percent Auto 9.8 % (18.3-44.2); Mean Corpuscular HGB Conc 30.8 g/dl (32-36); Mean Corpuscular Hemoglobin 27.8 pg (26-34); Mean Platelet Volume 10.9 fl (7.4-10.4); Monocytes Absolute Auto 0.7 K/mm3 (0.1-0.6); Monocytes Percent Auto 9.1 % (2.6-8.5); Neutrophils Absolute Auto 6.4 K/mm3 (1.3-6.7); Neutrophils Percent Auto 79.1 % (45.5-73.1); Platelet Count Result 190 k/mm3 (150-375); Red Cell Distribution Width 17.5 % (11.5-14.5); White Blood Count 8.1 K/mm3 (4.5-10.0)
[2022-02-14 05:54] LABS: Alanine Aminotransferase 20 U/L (6-50); Alkaline Phosphatase 70 U/L (38-126); Anion Gap 3 mmol/L (8-16); Aspartate Amino Transferase 18 U/L (17-59); Bilirubin,Total 0.5 mg/dL (0.2-1.3); Blood Urea Nitrogen 23 mg/dL (9-20); Carbon Dioxide 30 mmol/L (22-30); Chloride 103 mmol/L (98-107); Estimated CRCL calculation 68 ml/min; Estimated Glomerular Filt Rate > 60; Glucose 95 mg/dL (65-110); Potassium 3.8 mmol/L (3.4-5.0); Sodium 136 mmol/L (137-145)
--- NOTE | 2022-02-14 08:15 | P.PNIM_ITS ---
Progress Note: A&P Assessment and Plan (1) Cellulitis: Code(s): L03.90 - Cellulitis, unspecified Status: Acute Assessment and Plan: * Complaints of furthering reddening and swelling of the right lower extremity * Leg is red, swollen, hot, and weeping * Hx of DM2 * Continue vancomycin and imipenem * Wound care consult * Blood cultures NGTD * WBC 8.1 * Trend labs * Labs in the am * Supportive care (2) Type 2 diabetes mellitus: Code(s): E11.9 - Type 2 diabetes mellitus without complications Status: Acute Assessment and Plan: * Current glucose 95 * A1c 5.8 * Accu-Cheks AC and HS * Hypoglycemia protocol * Trend glucose * Adjust therapy as indicated * Carb consistent diet (3) Gastroesophageal reflux disease: Code(s): K21.9 - Gastro-esophageal reflux disease without esophagitis Status: Acute Assessment and Plan: * Add famotidine (4) Chronic kidney disease, stage 3: Code(s): N18.30 - Chronic kidney disease, stage 3 unspecified Status: Acute Assessment and Plan: * BUN/Cr 23/1.00 * Baseline appears to be 1.10-1.60, within baseline * Avoid nephrotoxic medications * Trend BUN and creatinine * No acute failure noted at this time * Daily intake and output (5) Essential hypertension: Onset Date: Unknown Code(s): I10 - Essential (primary) hypertension Status: Acute Assessment and Plan: * Current BP 167/85 * Continue home meds lisinopril 20mg PO daily * Hydralazine 10mg IV PRN with parameters * Could be elevated due to current illness, infection, or fluid volume status * Trend BP * adjust therapy as indicated Time Spent With Patient Time with patient: Greater than 35 minutes Subjective Date/time seen: 02/14/22 0815 Interval history: 02/14/22 08 Patient is doing okay today. Redness and leg is still there however the swelling and the warmth has dissipated. He also have as much weeping or openings. He denies any chest pain, shortness breast, nausea, vomiting, diarrhea, constipation, sweats, fevers, chills. Patient has no complaints of pain and states that he feels okay today. 02/13/22 1030 With lying in bed. Patient stated that he has no pain in his leg even though his leg is very red swollen and draining a clear drainage. Swelling also is present with about 3+ pitting edema. Patient stated that he gets like that sometimes it is very hot. He denies any chest pain, shortness of breath, nausea, vomiting, sweats, fevers, chills. WBC is 10.3 and his BNP is slightly elevated 1250. Patient did state that this happened before and Stated that It has came back. 02/12/22? 19:52 This is an 81-year-old male with past medical history significant for hypertension, gastroesophageal reflux disease, myelitis, squamous cell carcinoma of the face type 2 diabetes mellitus, degenerative joint disease, chronic kidney disease. Patient presents to the emergency room from [facility] due to worsening right lower extremity redness with swelling and tenderness.? Patient denies any fevers, rigors, chills, no nausea, no vomiting, no abdominal pain, no shortness of breath, no cough, no sputum production, denies any changes in his appetite has had diarrhea.? Preliminary workup has been essentially nonrevealing.? Patient is been admitted for further evaluation management and treatment. Review of Systems Review
--- NOTE | 2022-02-14 08:15 | PM.IMPN ---
Progress Note: A&P Assessment and Plan (1) Cellulitis: Code(s): L03.90 - Cellulitis, unspecified Status: Acute Assessment and Plan: Complaints of furthering reddening and swelling of the right lower extremity Leg is red, swollen, hot, and weeping Hx of DM2 Continue vancomycin and imipenem Wound care consult Blood cultures NGTD WBC 8.1 Trend labs Labs in the am Supportive care (2) Type 2 diabetes mellitus: Code(s): E11.9 - Type 2 diabetes mellitus without complications Status: Acute Assessment and Plan: Current glucose 95 A1c 5.8 Accu-Cheks AC and HS Hypoglycemia protocol Trend glucose Adjust therapy as indicated Carb consistent diet (3) Gastroesophageal reflux disease: Code(s): K21.9 - Gastro-esophageal reflux disease without esophagitis Status: Acute Assessment and Plan: Add famotidine (4) Chronic kidney disease, stage 3: Code(s): N18.30 - Chronic kidney disease, stage 3 unspecified Status: Acute Assessment and Plan: BUN/Cr 23/1.00 Baseline appears to be 1.10-1.60, within baseline Avoid nephrotoxic medications Trend BUN and creatinine No acute failure noted at this time Daily intake and output (5) Essential hypertension: Onset Date: Unknown Code(s): I10 - Essential (primary) hypertension Status: Acute Assessment and Plan: Current BP 167/85 Continue home meds lisinopril 20mg PO daily Hydralazine 10mg IV PRN with parameters Could be elevated due to current illness, infection, or fluid volume status Trend BP adjust therapy as indicated Time Spent With Patient Time with patient: Greater than 35 minutes Subjective Date/time seen: 02/14/22 0815 Interval history: 02/14/22 0815 Patient is doing okay today. Redness and leg is still there however the swelling and the warmth has dissipated. He also have as much weeping or openings. He denies any chest pain, shortness breast, nausea, vomiting, diarrhea, constipation, sweats, fevers, chills. Patient has no complaints of pain and states that he feels okay today. 02/13/22 1030 With lying in bed. Patient stated that he has no pain in his leg even though his leg is very red swollen and draining a clear drainage. Swelling also is present with about 3+ pitting edema. Patient stated that he gets like that sometimes it is very hot. He denies any chest pain, shortness of breath, nausea, vomiting, sweats, fevers, chills. WBC is 10.3 and his BNP is slightly elevated 1250. Patient did state that this happened before and Stated that It has came back. 02/12/22? 19:52 This is an 81-year-old male with past medical history significant for hypertension, gastroesophageal reflux disease, myelitis, squamous cell carcinoma of the face type 2 diabetes mellitus, degenerative joint disease, chronic kidney disease. Patient presents to the emergency room from [facility] due to worsening right lower extremity redness with swelling and tenderness.? Patient denies any fevers, rigors, chills, no nausea, no vomiting, no abdominal pain, no shortness of breath, no cough, no sputum production, denies any changes in his appetite has had diarrhea.? Preliminary workup has been essentially nonrevealing.? Patient is been admitted for further evaluation management and treatment. Review of Systems Review of Systems: All systems reviewed & are unremarkable except as noted in HPI and below Exam Const: General: cooperative, comfortable, no acute distress, well developed, alert, awake and other (Well-appearing) Nutritional Appearance: overweight Orientation/consciousness: oriented to person, oriented to place, oriented to time and patient oriented x3 HENMT: Head: normal to inspection, normocephalic and atraumatic Ears: hearing grossly normal bilaterally Face and sinus: normal facial exam Eyes: General: appear
[2022-02-14] MEDS: ENOXAPARIN 40 MG/0.4 ML SYRINGE SUB-Q (08:49)
[2022-02-14] MEDS: ASPIRIN 81 MG ENTERIC TABLET PO (08:49)
[2022-02-14] MEDS: FINASTERIDE 5 MG TABLET PO (08:49)
[2022-02-14] MEDS: OMEGA 3 POLYUNSAT FATTY ACIDS 1 GM CAP PO ×2 (08:50→16:58)
[2022-02-14] MEDS: NIACIN SA 500 MG TABLET PO (08:50)
[2022-02-14] MEDS: PANTOPRAZOLE SODIUM IV 40 MG VIAL IV PUSH (08:50)
[2022-02-14] MEDS: lisinopriL 20 MG TABLET PO (08:50)
[2022-02-14] MEDS: traMADol HCL (*CRX) 50 MG TABLET PO ×2 (08:50→20:55)
[2022-02-15] VITALS: BP 150/60; PULSE 87; RESP 16; TEMP 36.8; O2SAT 94
[2022-02-15 02:18] LABS: Vancomycin Trough 17.6 ug/mL (10.0-20.0)
[2022-02-15 04:00] VITALS: BP 140/75; PULSE 91; RESP 18; TEMP 36.4; O2SAT 95
[2022-02-15 06:06] LABS: Basophils Percent Auto 0.5 % (0.2-1.2); Eosinophils Absolute Auto 0.1 K/mm3 (0-0.3); Eosinophils Percent Auto 0.6 % (0-4.4); Hematocrit 40.4 % (42.0-52.0); Hemoglobin 12.9 g/dL (14.0-18.0); Immature Granulocyte Absolute 0.09 K/mm3 (0.00-0.031); Immature Granulocyte Percent A 1.1 % (0-0.5); Lymphocytes Absolute Auto 0.75 K/mm3 (0.9-3.2); Lymphocytes Percent Auto 9.1 % (18.3-44.2); Mean Corpuscular HGB Conc 31.9 g/dl (32-36); Mean Corpuscular Hemoglobin 28.3 pg (26-34); Mean Corpuscular Volume 88.6 fl (80-100); Mean Platelet Volume 10.7 fl (7.4-10.4); Monocytes Absolute Auto 0.8 K/mm3 (0.1-0.6); Monocytes Percent Auto 9.5 % (2.6-8.5); Neutrophils Absolute Auto 6.5 K/mm3 (1.3-6.7); Neutrophils Percent Auto 79.2 % (45.5-73.1); Platelet Count Result 180 k/mm3 (150-375); Red Blood Count 4.56 M/mm3 (4.6-6.20); Red Cell Distribution Width 17.3 % (11.5-14.5); White Blood Count 8.2 K/mm3 (4.5-10.0)
[2022-02-15 06:27] LABS: Alanine Aminotransferase 17 U/L (6-50); Albumin Level 2.8 g/dL (3.5-5.1); Alkaline Phosphatase 56 U/L (38-126); Anion Gap 3 mmol/L (8-16); Aspartate Amino Transferase 19 U/L (17-59); Bilirubin,Total 0.6 mg/dL (0.2-1.3); Blood Urea Nitrogen 21 mg/dL (9-20); Calcium 8.5 mg/dL (8.4-10.2); Carbon Dioxide 28 mmol/L (22-30); Chloride 102 mmol/L (98-107); Estimated CRCL calculation 75 ml/min; Estimated Glomerular Filt Rate > 60; Glucose 123 mg/dL (65-110); Magnesium 1.9 mg/dL (1.6-2.3); Potassium 4.2 mmol/L (3.4-5.0); Sodium 133 mmol/L (137-145)
[2022-02-15 07:44] LABS: Glucose Point of Care 84 mg/dl (65-105)
[2022-02-15 08:15] VITALS: BP 115/82; PULSE 99; O2SAT 95
[2022-02-15] MEDS: lisinopriL 20 MG TABLET PO (08:15)
[2022-02-15] MEDS: OMEGA 3 POLYUNSAT FATTY ACIDS 1 GM CAP PO ×2 (08:15→16:10)
[2022-02-15] MEDS: traMADol HCL (*CRX) 50 MG TABLET PO (08:15)
[2022-02-15] MEDS: FINASTERIDE 5 MG TABLET PO (08:15)
[2022-02-15] MEDS: ASPIRIN 81 MG ENTERIC TABLET PO (08:15)
[2022-02-15] MEDS: ENOXAPARIN 40 MG/0.4 ML SYRINGE SUB-Q (08:15)
[2022-02-15] MEDS: PANTOPRAZOLE SODIUM IV 40 MG VIAL IV PUSH (08:15)
[2022-02-15] MEDS: NIACIN SA 500 MG TABLET PO (08:15)
--- NOTE | 2022-02-15 09:15 | PM.DS ---
DS: Admitting Diagnosis Discharge Date 02/15/2215 Admitting Diagnosis Cellulitis of the right lower extremity DS: Discharge Diagnosis Discharge Diagnosis (1) Cellulitis: Code(s): L03.90 - Cellulitis, unspecified Status: Acute Assessment and Plan: Complaints of furthering reddening and swelling of the right lower extremity Leg is red, swollen, hot, and weeping Hx of DM2 Continue vancomycin and imipenem Wound care consult Blood cultures NGTD WBC 8.1 Trend labs Labs in the am Supportive care (2) Type 2 diabetes mellitus: Code(s): E11.9 - Type 2 diabetes mellitus without complications Status: Acute Assessment and Plan: Current glucose 95 A1c 5.8 Accu-Cheks AC and HS Hypoglycemia protocol Trend glucose Adjust therapy as indicated Carb consistent diet (3) Gastroesophageal reflux disease: Code(s): K21.9 - Gastro-esophageal reflux disease without esophagitis Status: Acute Assessment and Plan: Add famotidine (4) Chronic kidney disease, stage 3: Code(s): N18.30 - Chronic kidney disease, stage 3 unspecified Status: Acute Assessment and Plan: BUN/Cr 23/1.00 Baseline appears to be 1.10-1.60, within baseline Avoid nephrotoxic medications Trend BUN and creatinine No acute failure noted at this time Daily intake and output (5) Essential hypertension: Onset Date: Unknown Code(s): I10 - Essential (primary) hypertension Status: Acute Assessment and Plan: Current BP 167/85 Continue home meds lisinopril 20mg PO daily Hydralazine 10mg IV PRN with parameters Could be elevated due to current illness, infection, or fluid volume status Trend BP adjust therapy as indicated DS: Summary Hospital Course Hospital Course: patient is an 81-year-old male with a past medical history of hypertension, BPH, cellulitis, type 2 diabetes who presented to the ED after it was noted that patient did have some swelling to the right lower extremity with redness and tenderness. Upon arrival patient's was experiencing 3 to 4+ pitting edema with redness and tenderness up to the knee. Patient was started on IV antibiotics. White count was noted to be elevated however has trended down since a IV antibiotics. Patient has been working with PT and OT and has been doing well. Patient denies any chest pain, shortness of breath, nausea, vomiting, diarrhea, constipation, weakness or fatigue. Patient is stable for discharge for labs and vital signs. Patient states that he feels great and is ready to go home. He also stated that he was wearing compression stockings and that is when they noticed that his leg was swollen and red and angry. He did say that he was compliant with the compression stockings and wears them 12 hours on 12 hours off. Patient will be discharged today back to his assisted living on doxycycline p.o.. Status at Discharge Functional status at discharge: uses cane/walker Overall status at discharge: patient is progressing back to baseline Time Spent with Patient Time attestation: Total time spent providing and/or coordinating discharge services: 36 minutes Time spent: Greater than 30 minutes Specific discharge activities: Diagnostic testing, chart review, developing a treatment plan, education, care coordination documentation, physical exam, result review Exam Const: General: cooperative, comfortable, no acute distress, well developed, alert, awake, tired appearing and other (Well-appearing) Nutritional Appearance: overweight Orientation/consciousness: oriented to person, oriented to place, oriented to time and patient oriented x3 HENMT: Head: normal to inspection, normocephalic and atraumatic Ears: hearing grossly normal bilaterally Face and sinus: normal facial exam Eyes: General: appearance normal, both eyes and all related structures Pupils: Equal,
--- NOTE | 2022-02-15 09:15 | P.DS_ITS ---
DS: Admitting Diagnosis Discharge Date 02/15/2215 Admitting Diagnosis Cellulitis of the right lower extremity DS: Discharge Diagnosis Discharge Diagnosis (1) Cellulitis: Code(s): L03.90 - Cellulitis, unspecified Status: Acute Assessment and Plan: * Complaints of furthering reddening and swelling of the right lower extremity * Leg is red, swollen, hot, and weeping * Hx of DM2 * Continue vancomycin and imipenem * Wound care consult * Blood cultures NGTD * WBC 8.1 * Trend labs * Labs in the am * Supportive care (2) Type 2 diabetes mellitus: Code(s): E11.9 - Type 2 diabetes mellitus without complications Status: Acute Assessment and Plan: * Current glucose 95 * A1c 5.8 * Accu-Cheks AC and HS * Hypoglycemia protocol * Trend glucose * Adjust therapy as indicated * Carb consistent diet (3) Gastroesophageal reflux disease: Code(s): K21.9 - Gastro-esophageal reflux disease without esophagitis Status: Acute Assessment and Plan: * Add famotidine (4) Chronic kidney disease, stage 3: Code(s): N18.30 - Chronic kidney disease, stage 3 unspecified Status: Acute Assessment and Plan: * BUN/Cr 23/1.00 * Baseline appears to be 1.10-1.60, within baseline * Avoid nephrotoxic medications * Trend BUN and creatinine * No acute failure noted at this time * Daily intake and output (5) Essential hypertension: Onset Date: Unknown Code(s): I10 - Essential (primary) hypertension Status: Acute Assessment and Plan: * Current BP 167/85 * Continue home meds lisinopril 20mg PO daily * Hydralazine 10mg IV PRN with parameters * Could be elevated due to current illness, infection, or fluid volume status * Trend BP * adjust therapy as indicated DS: Summary Hospital Course Hospital Course: patient is an 81-year-old male with a past medical history of hypertension, BPH, cellulitis, type 2 diabetes who presented to the ED after it was noted that patient did have some swelling to the right lower extremity with redness and tenderness. Upon arrival patient's was experiencing 3 to 4+ pitting edema with redness and tenderness up to the knee. Patient was started on IV antibiotics. White count was noted to be elevated however has trended down since a IV antibiotics. Patient has been working with PT and OT and has been doing well. Patient denies any chest pain, shortness of breath, nausea, vomiting, diarrhea, constipation, weakness or fatigue. Patient is stable for discharge for labs and vital signs. Patient states that he feels great and is ready to go home. He also stated that he was wearing compression stockings and that is when they noticed that his leg was swollen and red and angry. He did say that he was compliant with the compression stockings and wears them 12 hours on 12 hours off. Patient will be discharged today back to his assisted living on doxycycline p.o.. Status at Discharge Functional status at discharge: uses cane/walker Overall status at discharge: patient is progressing back to baseline Time Spent with Patient Time attestation: Total time spent providing and/or coordinating discharge services: 36 minutes Time spent: Greater than 30 minutes Specific discharge activities: Diagnostic testing, chart review, developing a treatment plan, education, care coordination documentation, physical exam, result review Exam
[2022-02-15 10:20] VITALS: BP 142/82; PULSE 61; RESP 20; TEMP 36.6; O2SAT 91
[2022-02-15] MEDS: DOXYCYCLINE HYCLATE 100 MG TABLET PO (11:51)
[2022-02-15 13:55] VITALS: BP 146/77; PULSE 101; RESP 18; TEMP 36.1; O2SAT 95
== END 2022-02-15 17:38 | DRG 603 ==
LOC: ANHED 20:41 → ANH2MED 23:43
PROVIDERS: Emergency Medicine; Admitting Provider Internal Medicine; Emergency Provider Nurse Practitioner Family; PCP Internal Medicine; Visit Provider Nurse Practitioner
DX: L03.115 Cellulitis of right lower limb (principal); Z20.822 Contact with and (suspected) exposure to COVID-19; K21.9 Gastro-esophageal reflux disease without esophagitis; E11.22 Type 2 diabetes mellitus with diabetic chronic kidney disease; I12.9 Hypertensive chronic kidney disease with stage 1 through stage 4 chronic kidney disease, or unspecified chronic kidney disease; N18.30 Chronic kidney disease, stage 3 unspecified; N40.0 Benign prostatic hyperplasia without lower urinary tract symptoms; M16.0 Bilateral primary osteoarthritis of hip; E78.5 Hyperlipidemia, unspecified; M19.012 Primary osteoarthritis, left shoulder; Z96.652 Presence of left artificial knee joint; Z85.828 Personal history of other malignant neoplasm of skin; Z90.49 Acquired absence of other specified parts of digestive tract; Z87.891 Personal history of nicotine dependence
CPT/HCPCS: 36415; 80053; 80202; 82948; 83605; 83735; 83880; 85025; 85610; 85730; 87040; 93971; 97161; 97165; 97530; 97535; 99285; A9270; C9113; C9803; J0743; J1650; J3370; U0003; U0005

== ENCOUNTER 2022-03-01 12:49 | Emergency (ER) | payer MEDICARE, SELFPAY ==
--- NOTE | ~2022-03-01 | XR_ITS ---
XR hip LT 2V w AP pelvis DATE: 03/01/2022 13:44 INDICATION: Left hip pain following a fall TECHNIQUE: AP pelvis. AP and lateral views of left hip. COMPARISON: 11/21/2021 left hip FINDINGS: There is severe left hip osteoarthritis and moderately severe right hip osteoarthritis. No pelvic fracture or bone destruction is evident. No fracture or dislocation of the left hip is detected. The pubic symphysis is normally aligned. There is ankylosis at the sacroiliac joints. IMPRESSION: Bilateral prominent hip osteoarthritis, particularly severe on the left Ankylosis at the sacroiliac joints No pelvic or left hip fracture or dislocation is detected Reviewed, dictated and finalized at location A.
--- NOTE | ~2022-03-01 | CT_ITS ---
EXAMINATION: CT brain wo con DATE: 03/01/2022 13:35 INDICATION: Head injury. TECHNIQUE: Computed tomography (CT) of the head was performed without intravenous contrast. The mA wa s adjusted according to patient size. Iterative reconstruction technique was employed. The dose-lengt h product was 605.33 mGy-cm. COMPARISON: Head CT 08/05/2021 FINDINGS: There are scattered areas of low attenuation in the cerebral white matter, which is within normal limits for the patient's age. There is no intracranial hemorrhage, acute infarction, or abnorm al intracranial mass lesion. The ventricles are normal in size. There is a left frontal scalp hematom a. There is mild mucosal thickening in the ethmoid sinuses. The orbits are normal. The mastoid air ce lls are normal. IMPRESSION: 1. Normal aging brain. Reviewed, dictated and finalized at location A. IMPRESSION: 1. Normal aging brain.
--- NOTE | ~2022-03-01 | XR_ITS ---
EXAMINATION: XR shoulder LT min 2V DATE: 03/01/2022 13:44 INDICATION: Left shoulder pain TECHNIQUE: AP internally and externally rotated, AP oblique externally rotated and transscapular Y vi ews of the left shoulder were obtained. COMPARISON: 11/21/2021 and 08/05/2021 FINDINGS: There is cephalad subluxation of the humeral head with respect to the glenoid with narrowing of the s ubacromial space and remodeling of the undersurface of the acromion consistent with likely chronic ro tator cuff tear. Heterotopic ossifications about the left humeral head and neck. No acute fracture. M ild osteoarthritis at the left acromioclavicular joint. Hypertrophic osteophytes about the right reynaldo oid consistent with osteoarthritis although severity is difficult to determine as the joint spaces no t profiled. Large bone island at T7 which is evident on CT dated 07/30/2018. IMPRESSION: Likely chronic left rotator cuff arthropathy with prominent heterotopic ossification about the left h umeral head and neck. No acute osseous abnormality. Reviewed, dictated and finalized at location B. IMPRESSION: Likely chronic left rotator cuff arthropathy with prominent heterotopic ossific ation about the left humeral head and neck. No acute osseous abnormality.
[2022-03-01 12:51] VITALS: BP 155/81; PULSE 76; RESP 18; TEMP 36.6; O2SAT 98
--- NOTE | 2022-03-01 12:55 | ECG_ITS ---
Measurements Intervals [place] Rate: 74 P: ND: 0 QRS: 47 QRSD: 75 T: 53 QT: 358 QTc: 397 Interpretive Statements ATRIAL FIBRILLATION INCOMPLETE RIGHT BUNDLE BRANCH BLOCK NONSPECIFIC T-WAVE ABNORMALITY- INF/HIGH LAT LEADS BASELINE ARTIFACT- I, II, III, AVR, AVL, AVF ABNORMAL ECG Electronically Signed On 03-01-2022 13:01:24 CDT by Andrew Schofield D.O.
--- NOTE | 2022-03-01 13:20 | ED.FALL ---
HPI - Fall General Chief Complaint: Fall Stated Complaint: glf no loc afib on monitor Time Seen by Provider: 03/01/22 13:12 Source: patient, EMS and RN notes reviewed Mode of arrival: EMS Limitations: no limitations History of Present Illness HPI Narrative: This is an 81 year old male who presents from [facility] for evaluation after a fall. Patient states he was trying to move a chair and his feet got caught in the chair legs. This caused his to fall , and he hit his head on bed. He denies LOC and he states he has only minimal pain. He states takes an aspirin. He denies neck pain or back pain. He states he has chronic left shoulder and left hip pain. MD complaint: fall Onset (ago): minute(s) Fall from: standing Place fall occurred: home Loss of consciousness: none Prolonged down time: no Symptoms prior to fall: none Context: tripped/slipped Location of injury: head Related Data Home Medications Medication Instructions Recorded Confirmed omega-3 fatty acids 1,000 mg 1,000 mg PO BID 09/17/19 02/12/22 capsule (Fish Oil Concentrate) niacin 500 mg tablet 500 mg PO DAILY 05/04/21 02/12/22 aspirin 81 mg tablet,delayed 81 mg PO DAILY 09/24/21 02/12/22 release finasteride 5 mg tablet 5 mg PO DAILY 09/24/21 02/12/22 furosemide 40 mg tablet 40 mg PO DAILY 09/24/21 02/12/22 lisinopril 20 mg tablet 20 mg PO DAILY 09/24/21 02/12/22 ibuprofen 400 mg tablet 400 mg PO Q8H PRN Pain (Scale 02/12/22 02/12/22 Score 1-3) tramadol 50 mg tablet 1 tablet PO Q12H 02/12/22 02/12/22 Allergies Allergy/AdvReac Type Severity Reaction Status Date / Time No Known Allergies Allergy Verified 02/12/22 18:34 Review of Systems Review of Systems: All systems reviewed & are unremarkable except as noted in HPI and below Constitutional: Constitutional: Denies chills and Denies fatigue Cardiovascular: Cardiovascular: Denies chest pain and Denies rapid heart rate Respiratory: Respiratory: Denies chest congestion Gastrointestinal: Gastrointestinal: Denies abdominal pain Musculoskeletal: Musculoskeletal: Reports arthralgias PMFSH Past Medical History Medical History Actinic keratosis Benign prostatic hyperplasia Bilateral primary osteoarthritis of hip (~06/2021) Bladder stones Chronic kidney disease, stage 3 Baseline creatinine ranges between 1.40 and 1.60. 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 Wears glasses Surgical History Surgical History History of arthroplasty of left knee History of arthroscopy of both knees History of colonoscopy with polypectomy History of cystoscopy History of laparoscopic cholecystectomy (2013) History of lithotripsy History of nasal septoplasty (2006) With bilateral inferior turbinectomy. History of transurethral resection of prostate History of ventral hernia repair (2005) Status post excision of lipoma Anterior abdominal wall. Status post hammertoe correction OR as OP on Rt. 2nd and 5th MCP joints approx. 2017 Family History Family History Father Acute myocardial infarction Mother Breast cancer Hypertension Sibling Leukemia Sibling Lung cancer Other Arthritis Social History Social History Social History: Surrogate decision maker: Kishore Puckettntyrkerry Griffiths, son. Code status: Full code. Smoking status: Former smoker Tobacco type: cigarettes Second hand tobacco smoke exposure: Yes Alcohol intake: never Substance use: never Substance use type: does not use Additional living arrangements comments: The patient lives in his
--- NOTE | 2022-03-01 15:13 | PC.NURSE ---
report called to [facility]. called for transport
[2022-03-01 15:43] VITALS: BP 122/68; PULSE 78; RESP 18; O2SAT 99
== END 2022-03-01 15:44 ==
PROVIDERS: Emergency Provider General Practice; PCP Internal Medicine
DX: S09.90XA Unspecified injury of head, initial encounter (principal); I12.9 Hypertensive chronic kidney disease with stage 1 through stage 4 chronic kidney disease, or unspecified chronic kidney disease; E11.22 Type 2 diabetes mellitus with diabetic chronic kidney disease; N18.30 Chronic kidney disease, stage 3 unspecified; Z87.891 Personal history of nicotine dependence; Z79.82 Long term (current) use of aspirin; Z79.891 Long term (current) use of opiate analgesic; Z79.1 Long term (current) use of non-steroidal anti-inflammatories (NSAID); W18.39XA Other fall on same level, initial encounter
CPT/HCPCS: 70450; 73030; 73502; 93005; 99284

== ENCOUNTER 2022-03-11 15:33 | Inpatient (IN) | payer MEDICARE, SELFPAY ==
[2022-03-11] VITALS (17 sets, daily range): BP systolic 172–206; BP diastolic 91–112; PULSE 68–95; RESP 16–24; TEMP 36.4–36.6; O2SAT 90–100
--- NOTE | ~2022-03-11 | CT_ITS ---
Patient Name: Patient Name MR#: Patient MRN Accession#: Accession Numbers EXAMINATION: CTA brain carotid DATE: 03/11/2022 20:44 INDICATION: New onset AMS w/new onset a-fib TECHNIQUE: Computed tomographic angiography (CTA) of the head was performed with 100 mL Omnipaque-300 intravenous contrast. CTA of the neck was performed with intravenous contrast. Automated exposure co ntrol and iterative reconstruction technique were employed. The dose-length product was 1265.06 mGy-c m. Maximum intensity projection and volume rendered 3D-reconstructions were created by the [employer] st on a separate workstation. COMPARISON: CT brain, same date. FINDINGS: CTA NECK: Aortic arch and proximal great vessels: Atherosclerotic calcifications at the visualized aortic arch and proximal great vessels. Bovine arch. Right common carotid, carotid bifurcation, and internal carotid artery: Mild noncalcified plaque at t he proximal carotid bifurcation.There is 0% stenosis of the proximal right internal carotid artery re lative to normal distal artery lumen diameter (NASCET criteria). Left common carotid, carotid bifurcation, and internal carotid artery: Calcified plaque at the aortic bifurcation.There is 20% stenosis of the proximal left internal carotid artery relative to normal di stal artery lumen diameter (NASCET criteria). Vertebral arteries: Calcified plaques with moderate stenoses at the origins of the bilateral vertebra l arteries. Short segment calcified moderate stenosis in the distal left vertebral artery. Left verte bral artery is dominant. Other findings: Left frontal hematoma. Small bilateral pleural effusions. End-stage left shoulder art hropathy. Mild bilateral interlobular septal thickening. CTA HEAD: No large vessel occlusion, aneurysm, high flow vascular malformation, nidus or extravasation. Calcifi ed plaque in the bilateral cavernous portions of the carotid, without severe stenosis. 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 IMPRESSION: 1. Negative for large vessel occlusion. 2. Scattered atherosclerotic changes without severe stenosis in the head or neck arteries. 3. No facial fracture. 4. Mild interstitial edema with small bilateral effusions. Reviewed, dictated and finalized at location K. IMPRESSION: 1. Negative for large vessel occlusion. 2. Scattered atherosclerotic changes without severe stenosis in the head or ne ck arteries. 3. No facial fracture. 4. Mild interstitial edema with small bilateral effusions.
--- NOTE | ~2022-03-11 | XR_ITS ---
EXAMINATION: XR chest 2V Exam Date/Time: 03/11/2022 16:50 CDT HISTORY: confusion SINCE THIS MORNING, PT POOR HISTORIAN Comparison: 07/07/2021. RESULT: Lines, tubes, and devices: None. Lungs and pleura: Low lung volume. Streaky bibasilar opacities. Minimal bilateral angle blunting. Cardiomediastinal silhouette: Stable. Other: No acute osseous or upper abdominal finding. IMPRESSION: Bibasilar atelectasis. Small bilateral effusions. Infection is not excluded. Reviewed, dictated and finalized at location K.
--- NOTE | ~2022-03-11 | XR_ITS ---
MODIFIED ESOPHAGRAM HISTORY: Dysphagia. TECHNIQUE: Modified barium esophagram was performed on 03/08/2022. I administered fluoroscopy and perf ormed the exam with speech pathologist. Patient was seated for lateral fluoroscopic imaging for amaris stion of thin liquids, pudding, solids and quantified amounts, followed by thin liquids in uncontroll ed amounts. This was recorded on tape. A single fluoroscopic spot image was also recorded. The DAP fo r this procedure was 6.49 Gycm2. The amount of fluoroscopy time used during this procedure was 5.6 mi nutes. FINDINGS: Oral stage: Reduced lingual movement. Pharyngeal stage: Residual dysphagia with reduced laryngeal elevation, tongue base retraction and pha ryngeal squeeze with both vallecular and piriform sinus residue. There is deep laryngeal penetration with possible trace aspiration with thin liquids.. Cervical/esophageal stage: Adequate function. IMPRESSION: Pharyngeal dysphagia with deep laryngeal penetration, potentially with trace aspiration. Please correlate with speech pathologist findings and specific feeding recommendations. Reviewed, dictated and finalized at location A. IMPRESSION: Pharyngeal dysphagia with deep laryngeal penetration, potentially w ith trace aspiration. Please correlate with speech pathologist findings and sp ecific feeding recommendations.
--- NOTE | ~2022-03-11 | XR_ITS ---
EXAM: XR shoulder LT min 2V DATE: 03/11/2022 18:54 HISTORY: pain, ecchymosis . COMPARISON: None available. FINDINGS: Severe degenerative change at the glenohumeral joint with heterotopic ossification. No fra cture or dislocation. Visualized lung parenchyma is clear. IMPRESSION: No acute osseous finding in the left shoulder. Reviewed, dictated and finalized at location K.
--- NOTE | ~2022-03-11 | CT_ITS ---
EXAMINATION: CT brain wo con DATE: 03/11/2022 16:44 INDICATION: confusion, AMS . TECHNIQUE: Computed tomography (CT) of the head was performed without intravenous contrast. The mA wa s adjusted according to patient size. Iterative reconstruction technique was employed. The dose-lengt h product was 605.33 mGy-cm. COMPARISON: 03/01/2022 FINDINGS: No acute intracranial hemorrhage or extra-axial fluid collection. No hydrocephalus, mass, or herniation. No acute ischemic infarct. Unremarkable dural venous sinus attenuation. No acute osseous abnormality. Residual left frontal hematoma. The aerated spaces are clear. Moderate atrophy and chronic white matter change. Atherosclerotic intracranial calcifications. IMPRESSION: No acute intracranial process. Reviewed, dictated and finalized at location K.
--- NOTE | ~2022-03-11 | XR_ITS ---
EXAMINATION: XR chest 1V portable INDICATION: Cough TECHNIQUE: Portable AP chest at 1225 hours COMPARISON: 03/11/2022 FINDINGS: There are minimal airspace opacities of the left lung base. There is a small left pleural e ffusion. No pneumothorax is identified. The cardiomediastinal silhouette is stable. There are calcifi ed loose bodies in the left shoulder joint. IMPRESSION: 1. Left basilar airspace opacities, consistent with atelectasis versus pneumonia. 2. Small left pleural effusion. Reviewed, dictated and finalized at location B. IMPRESSION: 1. Left basilar airspace opacities, consistent with atelectasis versus pneumoni a. 2. Small left pleural effusion.
--- NOTE | 2022-03-11 16:18 | ECG_ITS ---
Measurements Intervals [place] Rate: 86 P: AK: 0 QRS: 14 QRSD: 87 T: 15 QT: 337 QTc: 404 Interpretive Statements ATRIAL FIBRILLATION BASELINE ARTIFACT- I, II, III, AVR, AVL, AVF, V1-V6 ABNORMAL ECG Electronically Signed On 03-11-2022 17:07:36 CDT by Andrew Schofield D.O.
--- NOTE | 2022-03-11 16:41 | PCRCNOTE ---
Arrived to draw the ABG and Pt. had been taken to X-Ray .
--- NOTE | 2022-03-11 16:52 | ED.AMS ---
HPI - Altered Mental Status General Chief Complaint: Altered Mental Status <Ana Maria Wilkinson PA-C - Last Filed: 03/11/22 19:42> Stated Complaint: AMS <Ana Maria Wilkinson PA-C - Last Filed: 03/11/22 19:42> Time Seen by Provider: 03/11/22 16:07 <BISI Collins Last Filed: 03/11/22 19:42> History of Present Illness HPI narrative: Patient is an 80-year-old male with a history of CHF, HTN, CKD, BPH here for evaluation of altered mental status from his nursing facility. Patient tells me that when he was playing [employer] at 7AM today, he was not sure how to use the pieces or play the game. History is limited as patient is a poor historian. He denies any chest pain, shortness of breath, headache, falls, dizziness. His only complaint right now is left shoulder pain, which appears chronic for him, though he is difficult to orient. <BISI Collins Last Filed: 03/11/22 19:42> Related Data Home Medications: Home Medications Medication Instructions Recorded Confirmed omega-3 fatty acids 1,000 mg 1,000 mg PO BID 09/17/19 02/12/22 capsule (Fish Oil Concentrate) niacin 500 mg tablet 500 mg PO DAILY 05/04/21 02/12/22 aspirin 81 mg tablet,delayed 81 mg PO DAILY 09/24/21 02/12/22 release finasteride 5 mg tablet 5 mg PO DAILY 09/24/21 02/12/22 furosemide 40 mg tablet 40 mg PO DAILY 09/24/21 02/12/22 lisinopril 20 mg tablet 20 mg PO DAILY 09/24/21 02/12/22 ibuprofen 400 mg tablet 400 mg PO Q8H PRN Pain (Scale 02/12/22 02/12/22 Score 1-3) tramadol 50 mg tablet 1 tablet PO Q12H 02/12/22 02/12/22 <BISI Collins Last Filed: 03/11/22 19:42> Allergies/Adverse Reactions: Allergies Allergy/AdvReac Type Severity Reaction Status Date / Time No Known Allergies Allergy Verified 03/11/22 16:34 <Ana Maria Wilkinson PA-C - Last Filed: 03/11/22 19:42> Review of Systems Review of Systems: Gen: Denies fevers or chills Eyes: Denies eye pain or visual change ENT: Denies congestion Respiratory: Denies shortness of breath or cough CV: Denies chest pain or palpitations GI: Denies abdominal pain nausea, emesis or diarrhea denies burning, urgency, frequency or hematuria Musculoskeletal: Reports left shoulder pain. Denies back pain or muscle pain Neuro: Reports confusion. Denies numbness, tingling, weakness or focal weakness Skin: Denies rash Except as documented, all other systems reviewed and negative <Ana Maria Wilkinson PA-C - Last Filed: 03/11/22 19:42> [facility] Past Medical History Medical History: Medical History Actinic keratosis Benign prostatic hyperplasia Bilateral primary osteoarthritis of hip (~06/2021) Bladder stones Chronic kidney disease, stage 3 Baseline creatinine ranges between 1.40 and 1.60. 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 Wears glasses <Ana Maria Wilkinson PA-C - Last Filed: 03/11/22 19:42> Surgical History Surgical History: Surgical History History of arthroplasty of left knee History of arthroscopy of both knees History of colonoscopy with polypectomy History of cystoscopy History of laparoscopic cholecystectomy (2013) History of lithotripsy History of nasal septoplasty (2006) With bilateral inferior turbinectomy. History of transurethral resection of prostate History of ventral hernia repair (2005) Status post excision of lipoma Anterior abdominal wall. Status post hammertoe correction OR as OP on Rt. 2nd and 5th MCP joints approx. 2017 <Ana Maria Wilkinson PA-C - Last Filed: 03/11/22 19:42> Family History Family History: Family History (Reviewed
[2022-03-11 17:09] LABS: Alveolar/Arterial O2 Gradient 29.5 mmHg; Base Excess ABG 2.1 mEq/l (+/-2.0); Fractional Inspired Oxygen 21 %; Oxygen Content ABG 18.5 %vol (16.0-22.0); Oxygen Saturation ABG 95.6 % (95.0-100.0); Oxyhemoglobin 93.3 % THb (90.0-100.0); PCO2 ABG 38.1 mmHg (35.0-45.0); PO2 ABG 74.6 mmHg (80.0-100.0); PO2 FiO2 Ratio Arterial Blood 3.55 %; Total Hemoglobin 14.1 g/dL (12.0-18.0); pH ABG 7.452 (7.350-7.450)
[2022-03-11 17:10] LABS: Device ROOM AIR; Modified Allen's Test Pass; Site Drawn LEFT RADIAL
[2022-03-11 17:35] LABS: Basophils Percent Auto 0.3 % (0.2-1.2); Eosinophils Absolute Auto 0.1 K/mm3 (0-0.3); Eosinophils Percent Auto 0.6 % (0-4.4); Hematocrit 43.8 % (42.0-52.0); Hemoglobin 13.4 g/dL (14.0-18.0); Immature Granulocyte Absolute 0.04 K/mm3 (0.00-0.031); Immature Granulocyte Percent A 0.5 % (0-0.5); Lymphocytes Absolute Auto 0.78 K/mm3 (0.9-3.2); Lymphocytes Percent Auto 9.1 % (18.3-44.2); Mean Corpuscular HGB Conc 30.6 g/dl (32-36); Mean Corpuscular Hemoglobin 27.6 pg (26-34); Mean Corpuscular Volume 90.3 fl (80-100); Mean Platelet Volume 10.5 fl (7.4-10.4); Monocytes Absolute Auto 0.8 K/mm3 (0.1-0.6); Neutrophils Absolute Auto 6.9 K/mm3 (1.3-6.7); Neutrophils Percent Auto 80.5 % (45.5-73.1); Platelet Count Result 213 k/mm3 (150-375); Red Blood Count 4.85 M/mm3 (4.6-6.20); White Blood Count 8.6 K/mm3 (4.5-10.0)
[2022-03-11 17:45] LABS: Alanine Aminotransferase 22 U/L (6-50); Albumin Level 3.7 g/dL (3.5-5.1); Alkaline Phosphatase 86 U/L (38-126); Anion Gap 5 mmol/L (8-16); Aspartate Amino Transferase 20 U/L (17-59); Bilirubin,Total 0.8 mg/dL (0.2-1.3); Blood Urea Nitrogen 25 mg/dL (9-20); Calcium 9.5 mg/dL (8.4-10.2); Carbon Dioxide 27 mmol/L (22-30); Chloride 106 mmol/L (98-107); Estimated CRCL calculation 66 ml/min; Estimated Glomerular Filt Rate > 60; Glucose 103 mg/dL (65-110); Potassium 4.4 mmol/L (3.4-5.0); Sodium 138 mmol/L (137-145)
[2022-03-11 17:54] LABS: NT Pro B Type Natriuretic Pept 1360 pg/mL (5-100)
[2022-03-11 18:50] LABS: Appearance Urine Clear (Clear); Bilirubin Urine Negative (Negative); Color Urine Yellow (Yellow); Glucose Urine UA Negative (Negative); Ketones Urine Trace mg/dL (Negative); Leukocyte Esterase Ur Negative LEU/UL (Negative); Nitrate Urine Negative (Negative); Protein Urine 1+ mg/dL (Negative); Urobilinogen Urine 0.2 mg/dL (<2.0)
--- NOTE | 2022-03-11 18:51 | PC.NURSE ---
Unable to do urinary straight catheter due to pt urinating before the catheter was inserted
[2022-03-11 18:54] LABS: Mucus Urine Rare /lpf; Squamous Epithelial Cell Urine Rare /hpf (Few); WBC Urine 0-3 /hpf
[2022-03-11 18:55] LABS: Add Urine Microscopic? YES; Blood Urine Trace-Intact (Negative)
[2022-03-11 19:26] LABS: SARS-CoV-2 RNA PCR Negative
--- NOTE | 2022-03-11 19:26 | PC.NURSE ---
SPOKE WITH DON ROSAS JUNIOR REGARDING HIS FATHER AWAITING ADMISSION. PHONE NUMBER [phone]
--- NOTE | 2022-03-11 19:30 | PM.IMHP ---
H&P: HPI History of Present Illness Date/Time: 03/11/22 19:20 Chief Complaint: Altered Mental Status Narrative: This 81 year old male patient with significant PMH of BPH, osteoarthritis, bladder stones, chronic kidney disease stage 3 with baseline creatinine ranging 1.4-1.6, DJD of the left shoulder, dyslipidemia, hypertension, GERD, kidney stones, who diabetes mellitus, a fall on March 01, 2022 resulting in a hematoma to the face with negative imaging for any acute findings presents to the emergency room today with complaints from fdc staff at [facility] of him having altered mental status. Patient himself is likely a poor historian, however fdc staff indicates that while he was playing [employer] this morning he was confused as how to do so. Patient does give some baseline history of seen that he could not get the words to come out of his mouth correctly. At this point of time he is unsure of what he was trying to say during the [employer] game, however, he knows the only word that will come out of his mouth was ?fourteen . I asked him if this was the 1st time this had happened and he indicates no. Workup in the ED was performed including CT of the head that showed no acute findings. Chest x-ray showed bibasilar atelectasis versus small bilateral effusions and cannot exclude infection, EKG noted atrial fibrillation with rate controlled at 86 beats per minute, this is a new finding and diagnosis for this patient. CBC and metabolic panel are normal, BNP is 1360 which is similar to his previous 1 from 10 days ago. ABG demonstrates a normal pH of 7.45, pCO2 of 38.1, PO2 of 74.6 and a bicarb of 26.0. In addition the patient does complain of chronic left shoulder pain as stated he does not have ?any rotator cuff left.? On exam patient does appear to have some mild redness noted to the bilateral feet. They are warm to the touch with an intact pedal and posterior tibial pulse, however there is a very lindsey appearance to them. No edema is noted and there is no drainage. Again pt. is a poor historian, but denies any current CP, dyspnea, N/V/D/urinary complaints of dysuria, hematuria, increased frequency or abdominal pain. He is being admitted to hospitalist service at this time for further workup and admission for new onset atrial fibrillation as well further evaluation of his neurological status. [id number] Score: 5 Review of Systems Review of Systems: I have concern regarding the ROS given by this patient as being accurate. All systems reviewed & are unremarkable except as noted in HPI and below PMFSH Past Medical History Medical History Actinic keratosis Benign prostatic hyperplasia Bilateral primary osteoarthritis of hip (~06/2021) Bladder stones Chronic kidney disease, stage 3 Baseline creatinine ranges between 1.40 and 1.60. 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 Wears glasses Surgical History Surgical History History of arthroplasty of left knee History of arthroscopy of both knees History of colonoscopy with polypectomy History of cystoscopy History of laparoscopic cholecystectomy (2013) History of lithotripsy History of nasal septoplasty (2006) With bilateral inferior turbinectomy. History of transurethral resection of prostate History of ventral hernia repair (2005) Status post excision of lipoma Anterior abdominal wall. Status post hammertoe correction OR as OP on Rt. 2nd and 5th MCP joints approx. 2017 Family History Family History Father Acute myocardial infarction Mother Breast cancer Hypertension Sibling
--- NOTE | 2022-03-11 20:31 | PC.NURSE ---
Patient report faxed at 2014 tried to call report at 2022 and 2029
[2022-03-11] MEDS: FUROSEMIDE INJ 40 MG/4 ML VIAL IV PUSH (20:48)
[2022-03-11 21:39] LABS: Hemoglobin A1C 6.2 % (<5.7)
[2022-03-11 21:57] LABS: Glucose Point of Care 121 mg/dl (65-105)
--- NOTE | 2022-03-11 22:19 | ADMGEN ---
This patient, Kishore Koroma , was admitted to 2 Medical Room 256-01 @2100. Patient/family oriented to hospital policies and general routines including ID bracelet, bed and alarms, visiting hours, pain management, procedures, bathroom and other care routines, personal items, smoking policy, room service/diet, and visiting hours. Information on how to activate the Rapid Response Team has been discussed. Patient/Family are encouraged to report perceived risks to care and to ask questions if they do not understand what they are told or what they should do.
[2022-03-11] MEDS: hydrALAZINE HCL 20 MG/ML VIAL 10 MG IV PUSH (23:34)
[2022-03-12] VITALS (10 sets, daily range): BP systolic 127–168; BP diastolic 65–84; PULSE 71–101; RESP 16–20; TEMP 36.3–36.4; O2SAT 94–96
[2022-03-12] MEDS: ACETAMINOPHEN 325 MG TABLET 650 MG PO (04:26)
[2022-03-12 05:12] LABS: Basophils Percent Auto 0.2 % (0.2-1.2); Eosinophils Percent Auto 0.2 % (0-4.4); Hematocrit 43.7 % (42.0-52.0); Hemoglobin 13.4 g/dL (14.0-18.0); Immature Granulocyte Absolute 0.05 K/mm3 (0.00-0.031); Immature Granulocyte Percent A 0.6 % (0-0.5); Lymphocytes Absolute Auto 0.61 K/mm3 (0.9-3.2); Lymphocytes Percent Auto 7.4 % (18.3-44.2); Mean Corpuscular HGB Conc 30.7 g/dl (32-36); Mean Corpuscular Hemoglobin 27.3 pg (26-34); Mean Platelet Volume 10.7 fl (7.4-10.4); Monocytes Absolute Auto 0.7 K/mm3 (0.1-0.6); Monocytes Percent Auto 8.3 % (2.6-8.5); Neutrophils Absolute Auto 6.9 K/mm3 (1.3-6.7); Neutrophils Percent Auto 83.3 % (45.5-73.1); Platelet Count Result 223 k/mm3 (150-375); Red Blood Count 4.91 M/mm3 (4.6-6.20); White Blood Count 8.3 K/mm3 (4.5-10.0)
[2022-03-12 05:24] LABS: Alanine Aminotransferase 20 U/L (6-50); Albumin Level 3.4 g/dL (3.5-5.1); Alkaline Phosphatase 81 U/L (38-126); Anion Gap 9 mmol/L (8-16); Aspartate Amino Transferase 20 U/L (17-59); Bilirubin,Total 0.9 mg/dL (0.2-1.3); Blood Urea Nitrogen 23 mg/dL (9-20); Calcium 9.4 mg/dL (8.4-10.2); Carbon Dioxide 29 mmol/L (22-30); Chloride 102 mmol/L (98-107); Estimated CRCL calculation 71 ml/min; Estimated Glomerular Filt Rate > 60; Glucose 102 mg/dL (65-110); Potassium 3.6 mmol/L (3.4-5.0); Sodium 140 mmol/L (137-145)
[2022-03-12 08:37] LABS: Glucose Point of Care 96 mg/dl (65-105)
--- NOTE | 2022-03-12 09:23 | PM.CNCAR ---
Assessment and Plan Assessment and plan (1) Atrial fibrillation: Qualifiers: Atrial fibrillation type: longstanding persistent Qualified Code(s): I48.11 - Longstanding persistent atrial fibrillation Code(s): I48.91 - Unspecified atrial fibrillation Status: Acute Assessment and Plan: Atrial fibrillation is not a new diagnosis for this patient. I am unable to fine record of Cardiology evaluation/consultation in our system and although pt unaware he is not reliable given his altered mental status. It has been documented persistently by ECG since June 2021. CHADS2 Vasc score 5 (age, HTN, DM, CHF). Has Bled score is also high. Nonetheless, given recent and history of recurrent falls patient would not be deemed a reasonable anticoagulation candidate at this time. -Continue aspirin 325 mg daily. -Continue telemetry. -2D echocardiogram to assess LV size/function, valve pathology pulmonary pressures. Recommendations to follow after review. -DVT prophylaxis -AFib is presently rate controlled without directed medical therapy. If tachycardic more persistently low-dose AV manda blocking agent reasonable with metoprolol 12.5 mg twice daily. Will hold off for now. -Clinically, patient does not appear to be in acute decompensated heart failure. (2) Altered mental status: Code(s): R41.82 - Altered mental status, unspecified Status: Acute Assessment and Plan: Concerning presentation for acute CVA with expressive aphasia with word searching, confusion, right-sided weakness. Rule out infection. Electrolytes renal function stable. No evidence of active infection unremarkable urinalysis afebrile without leukocytosis. MRI brain. Further workup per primary service. Consider neurology consultation. In light of atrial fibrillation which has been present persistently at least symptom member 2020 patient high risk for CVA a given history of multiple / recurrent falls he would not be deemed a good anticoagulation candidate due to high risk for bleeding including catastrophic intracerebral hemorrhage. MRI brain or repeat CT head in 24 hours. Neurology consultation. Given concern for stroke will discontinue niacin in favor of atorvastatin 10 mg at bedtime. PT OT. (3) Hypertension associated with type 2 diabetes mellitus: Code(s): E11.59 - Type 2 diabetes mellitus with other circulatory complications; I15.2 - Hypertension secondary to endocrine disorders Status: Acute Assessment and Plan: Hypertensive urgency presentation now well controlled. Continue to monitor closely. Discontinue p.r.n. IV hydralazine. Further adjustment in antihypertensives as appropriate based on his BP. (4) History of recent fall: Code(s): Z91.81 - History of falling Status: Acute Assessment and Plan: Patient has a history of several recurrent falls including in the past 2 weeks with superficial head injury and hematoma. No evidence of intracerebral hemorrhage by CT. However, patient high risk for bleeding complications and not a candidate for systemic anticoagulation fortunately. This situation would be further complicated if acute CVA identified on MRI or repeat CT of the brain. (5) Type 2 diabetes mellitus: Code(s): E11.9 - Type 2 diabetes mellitus without complications Status: Acute Assessment and Plan: Management per primary service. History of Present Illness History of Present Illness Consult date/time: Date of service:03/12/22 09:23 Requesting physician: Kristal Dasilva APN-C Consult reason: atrial fibrillation Reason For Visit: Altered Mental Status Narrative: Patient is 81-year-old male with a past medical history significant for type 2 diabetes mellitus, hyperlipidemia, hypertension possible CHF, GERD, and CKD and history of recurrent falls who presented from senior living at [facility] with altered mental status. Upon review of electronic re
[2022-03-12] MEDS: POTASSIUM CHLORIDE 20 MEQ TABLET 40 MEQ PO (09:38)
[2022-03-12] MEDS: ASPIRIN 81 MG ENTERIC TABLET 162 MG PO ×2 (09:40→11:34)
[2022-03-12] MEDS: ESCITALOPRAM OXALATE 10 MG TABLET PO (09:41)
[2022-03-12] MEDS: OMEGA 3 POLYUNSAT FATTY ACIDS 1 GM CAP PO (09:42)
[2022-03-12] MEDS: lisinopriL 20 MG TABLET PO (09:42)
[2022-03-12] MEDS: PANTOPRAZOLE 40 MG TABLET PO (09:43)
[2022-03-12] MEDS: FINASTERIDE 5 MG TABLET PO (09:43)
--- NOTE | 2022-03-12 10:18 | PM.IMPN ---
Progress Note: A&P Assessment and Plan (1) Altered mental status: Code(s): R41.82 - Altered mental status, unspecified Status: Acute Assessment and Plan: - CT of brain negative for acute findings. - CTA brain and neck without large vessel obstruction. - Neurology consulted and appreciate recommendations. - EKG with rate-controlled afib. Review of EKGs shows this has been present since 06/2021. - MRI of brain ordered and pending. - Aspirin 81 mg PO daily. - Fall precautions - re-orient as needed. - Echo pending. - Speech eval at bedside and recommended modified barium study, which was abnormal. Pureed/mild thick liquids recommended. - Monitor BP (2) Atrial fibrillation: Qualifiers: Atrial fibrillation type: longstanding persistent Qualified Code(s): I48.11 - Longstanding persistent atrial fibrillation Code(s): I48.91 - Unspecified atrial fibrillation Status: Acute Assessment and Plan: - [id number] score: 5 (for age, gender, CHF history, HTN and DM history.) - Telemetry monitoring: afib - Cardiology consulted and appreciate recommendations. - He is not on rate-controlling medications at this time. - Pt. has had repeated falls and is not a good candidate for anticoagulation due to high risk for major bleeding. - Magnesium 2, K 3.6 give 40 mEQ Kcl to keep K>4 (3) Abnormal chest xray: Code(s): R93.89 - Abnormal findings on diagnostic imaging of other specified body structures Status: Acute Assessment and Plan: - Imaging demonstrated Atelectasis with small pleural effusions vs. cannot rule out infection. - Pt. received a dose of Lasix in ER. - He does not appear to be volume overloaded on exam. Appears euvolemic - Transthoracic echo pending. - Pt. with no signs of acute infection as there is no Leukocytosis, and he has no symptoms of cough, dyspnea, and has oxygen saturations of 100% on room air. Hold abx at this time and monitor for any changes. (4) History of recent fall: Code(s): Z91.81 - History of falling Status: Acute Assessment and Plan: - Large facial hematoma on orbit of left eye with tenderness, bruising of various stages and mild edema. - Fall was 03/01/22, but there were no maxillofacial images taken. Given tenderness and appearance, CT without facial fractures. - Fall Precautions. (5) Type 2 diabetes mellitus: Code(s): E11.9 - Type 2 diabetes mellitus without complications Status: Acute Assessment and Plan: - Glucose checks AC and HS with sliding scale insulin. - A1C 6.2% and well controlled. - Hypoglycemia protocol - Diabetic diet (6) CHF (congestive heart failure): Code(s): I50.9 - Heart failure, unspecified Status: Acute Assessment and Plan: - ECHO is ordered as one is not available for review in EMR, and in setting of new onset atrial fib. - Continue home medications once they are verified. - Cardiology consulted and appreciate recommendations. Hold furosemide for now as he does not appear in acute exacerbation and was given furosemide IV in the ED. - Daily weight - Accurate I&O (7) Chronic kidney disease, stage 3: Code(s): N18.30 - Chronic kidney disease, stage 3 unspecified Status: Acute Assessment and Plan: - Creatinine and BUN currently normal at 1.0/25 - Monitor renal function on current medications. (8) Essential hypertension: Onset Date: Unknown Code(s): I10 - Essential (primary) hypertension Status: Acute Assessment and Plan: - Hypertensive at 186/107 on admission. - Blood pressure now 152/65 after lisinopril and proscar resumed. - Slowly decrease BP to normal over 24 hours d/t possible stroke. - PRN Hydralazine is ordered in the interim time with parameters of SBP>180 and DBP>90. - Continue to monitor. (9) Hyperlipidemia: Qualifiers: Hyperlipidemia type: unspecified [place]
--- NOTE | 2022-03-12 11:32 | PCPTNOTE ---
attempted to perform physical therapy evaluation. Patient is not oriented, is not able to follow directions or participate well. Will attempt again.
--- NOTE | 2022-03-12 11:33 | PCOTNOTE ---
Attempted occupational therapy evaluation, patient is not oriented and not able to follow commands. Not appropriate at this time, will attempt again.
[2022-03-12] MEDS: ATORVASTATIN 10 MG TABLET PO (11:34)
--- NOTE | 2022-03-12 11:46 | WPDNEURCNPN ---
Assessment and Plan Assessment and plan (1) Hypertension associated with type 2 diabetes mellitus: Code(s): E11.59 - Type 2 diabetes mellitus with other circulatory complications; I15.2 - Hypertension secondary to endocrine disorders Status: Acute (2) History of recent fall: Code(s): Z91.81 - History of falling Status: Acute (3) Atrial fibrillation: Qualifiers: Atrial fibrillation type: longstanding persistent Qualified Code(s): I48.11 - Longstanding persistent atrial fibrillation Code(s): I48.91 - Unspecified atrial fibrillation Status: Acute (4) CHF (congestive heart failure): Code(s): I50.9 - Heart failure, unspecified Status: Acute (5) Neuropathy: Code(s): G62.9 - Polyneuropathy, unspecified Status: Acute Plan 1 history of fall resulting soft tissue injuries [address] scan of the head with no epidural subdural bleed no evidence of hydrocephalus or any stroke 3 negative CTA without any evidence of involvement of the large vessels 4 negative shoulder x-ray 5 diabetic neuropathy which could underlying reason for the fall in addition possibility of autonomic neuropathy plan general along with the care for the possibility of the fall with prevention might benefit from the therapy Consult date: 03/12/22 Time Seen: 10:00 Reason for consult: change in the mental status HPI: Kishore Ayala Koroma is a 81 year old male admitted to the hospital through the emergency room for the complaints of change in the mental status. Patient carries the diagnosis of 1. Congestive heart failure 2. Chronic kidney disease 3. Hypertension 4. Benign prostatic hypertrophy . He was transferred to the emergency room for the evaluation of change in the mental status from his halfway reportedly he was playing [employer] 7:00 a.m. was unsure how to use the pieces play the game and was unable to give any further information to the ER physician though he was complaining of left shoulder pain, his outpatient medications included aspirin 81 mg daily furosemide 40 mg daily lisinopril 20 mg daily and tramadol 50 mg q.12 hours and he is also not allergic to any medication, in the emergency room he only complained of left shoulder discomfort and his examination revealed him to be somewhat ill-appearing with contusion over the left orbit 3+ pitting edema to both lower extremities and ecchymosis to the left shoulder as well, his initial evaluation included the CT scan of the head which was negative for the bleed, x-ray of the chest which revealed small bilateral effusion, and shoulder x-rays which revealed no acute fracture, his vital signs were stable except the blood pressure being 184/112 with the initial assessment of fluid overload and old contusion over the left orbit from the fall last week for which she was evaluated previously and the finding of pleural effusion on x-ray versus pneumonia in addition to BNP of 1360 an EKG with atrial fibrillation his CV Lasix in the in the emergency room and was admitted to the hospital for further management initial CBC was normal, electrolytes were normal, head neck CTA was negative for any large vessel involvement without any facial fracture and with mild interstitial edema and small bilateral effusion as mentioned before shoulder x-ray was negative and CT of the head was also negative PMFSH Past Medical History Medical History Actinic keratosis Benign prostatic hyperplasia Bilateral primary osteoarthritis of hip (~06/2021) Bladder stones Chronic kidney disease, stage 3 Baseline creatinine ranges between 1.40 and 1.60. 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 Wears glasses Surgical History
[2022-03-12 11:56] LABS: Glucose Point of Care 101 mg/dl (65-105)
--- NOTE | 2022-03-12 15:17 | PCSTNOTE ---
Please refer to the Bedside Swallow Evaluation in the EMR. Please note, silent aspiration cannot be ruled out at bedside.
--- NOTE | 2022-03-12 15:17 | PCSTNOTE ---
Please refer to the Modified Barium Swallow Evaluation in the EMR. Due to deep laryngeal penetration and possible aspiration with thin liquids, a diet with mildly thick liquids is being recommended. When solids were presented, Kishore swallowed the pudding followed by a cough and holding cracker in his teeth to expel. Due to current confusion, he does not seem to understand to chew and would not be safe with a regular diet so at this time a puree diet consistency is recommended. Follow up with an exercise program would not be effective since patient is not able to follow directions.
[2022-03-12 16:45] LABS: Glucose Point of Care 102 mg/dl (65-105)
[2022-03-12] MEDS: traMADol HCL (*CRX) 50 MG TABLET PO (22:01)
[2022-03-12 22:23] LABS: Glucose Point of Care 93 mg/dl (65-105)
[2022-03-13] VITALS (9 sets, daily range): BP systolic 135–155; BP diastolic 64–87; PULSE 75–96; RESP 16–28; TEMP 36.1–36.5; O2SAT 93–96
--- NOTE | 2022-03-13 | ECHO_ITS ---
Patient Info Name: Kishore Koroma Age: 81 years : 1940 Gender: Male Ht: 70 in Wt: 264 lbs BSA: 2.48 m2 HR: 78 bpm BP: 141 / 78 mmHg Heart Rhythm: Atrial Fibrillation Technical Quality: Good Exam Date: 03/13/2022 2:34 PM Exam Location: [facility] Card Pulmonary Patient Status: Inpatient Admit Date: 03/12/2022 Staff Ordering Physician: Kristal Dasilva Feeder Catcher: Shobha Shah RDCS Attending Provider: Rabia Cesar MD Referring Physician: Brown DAILEY; Exam Type: CA echo doppler color flow Study Info Indications I48.1 - Persistent atrial fibrillation Complete two-dimensional, color flow and Doppler transthoracic echocardiogram is performed. Summary 1. Complete two-dimensional, color flow and Doppler transthoracic echocardiogram is performed. 2. Left ventricular hypertrophy with good systolic function. 3. Left atrial dilation. 4. Sclerotic aortic valve which is not stenotic. 5. No regurgitant lesions identified. Left Ventricle Left ventricular chamber dimension is normal. Left ventricular systolic function is normal, estimated at 55-60%. There is moderate concentric increased left ventricular wall thickness. The left ventricular diastolic function is indeterminate. Right Ventricle Right ventricular chamber dimension is normal. Left Atria Left atrial chamber dimension is moderately enlarged. Right Atria Right atrial chamber dimension is normal. Aortic Valve The aortic valve is trileaflet. There is mild aortic valve sclerosis. Pulmonic Valve The pulmonic valve is normal. Mitral Valve The mitral valve has normal leaflets. The mitral valve annulus is mildly calcified. Tricuspid Valve The tricuspid valve leaflets are normal. Pericardium/Pleural The pericardium appears normal. Aorta The aortic root size at the sinus of Valsalva is normal. Left Ventricular Outflow Tract Name Value Normal LVOT 2D LVOT Diameter 1.9 cm LVOT Doppler LVOT Peak Gradient 3 mmHg LVOT Mean Gradient 2 mmHg LVOT VTI 24 cm LVOT VTI/AV VTI Ratio 1.0 LVOT Stroke Volume 66 ml LVOT CO 4.7 l/min LVOT CI 1.9 l/min/m2 Pulmonic Valve Name Value Normal RVOT Doppler RVOT Peak Gradient 2 mmHg PV Doppler PV Peak Gradient 4 mmHg Mitral Valve Name Value Normal MV Doppler
--- NOTE | 2022-03-13 07:43 | PM.IMPN ---
Progress Note: A&P Assessment and Plan (1) Altered mental status: Code(s): R41.82 - Altered mental status, unspecified Status: Acute Assessment and Plan: - CT of brain negative for acute findings. - CTA brain and neck without large vessel obstruction. - Neurology consulted and appreciate recommendations. - EKG with rate-controlled afib. Review of EKGs shows this has been present since 06/2021. - MRI brain pending. - Aspirin 325 mg PO daily. - Fall precautions - re-orient as needed. Neuro checks. Monitor BP - Echo pending. - Speech eval at bedside and recommended modified barium study, which was abnormal. Pureed/mild thick liquids recommended. - Cognition appears improved. (2) Atrial fibrillation: Qualifiers: Atrial fibrillation type: longstanding persistent Qualified Code(s): I48.11 - Longstanding persistent atrial fibrillation Code(s): I48.91 - Unspecified atrial fibrillation Status: Acute Assessment and Plan: - [id number] score: 5 (for age, gender, CHF history, HTN and DM history.) - Telemetry monitoring: afib - Cardiology consulted and appreciate recommendations. - He is not on rate-controlling medications at this time. - Pt. has had repeated falls and is not a good candidate for anticoagulation due to high risk for major bleeding. (3) Abnormal chest xray: Code(s): R93.89 - Abnormal findings on diagnostic imaging of other specified body structures Status: Acute Assessment and Plan: - Imaging demonstrated Atelectasis versus pneumonia with small pleural effusions. Repeat CXR 03/13 unchanged. WBC 11 and lactic acid 2.3. - Pt. received a dose of Lasix in ER. - He does not appear to be volume overloaded on exam. Appears euvolemic - Transthoracic echo pending. - Start empiric levaquin 750 mg PO daily x5 days for presumed pneumonia. - Add incentive spirometry. - MRSA nasal swab r/o colonization and risk for MRSA pneumonia. Patient <48 hours hospital stay. - Repeat lactic acid at 1800. (4) Urinary retention: Code(s): R33.9 - Retention of urine, unspecified Status: Acute Assessment and Plan: - H/O BPH. Patient unable to void 03/12 evening. Proscar resumed yesterday. - Bladder scan >250 mL, but not documented by nursing. Millan catheter inserted and nursing reports some blood-tinge and poor floor. - Flush catheter Q4 hours. - Consult Urology (5) History of recent fall: Code(s): Z91.81 - History of falling Status: Acute Assessment and Plan: - Large facial hematoma on orbit of left eye with tenderness, bruising of various stages and mild edema. - Fall was 03/01/22, but there were no maxillofacial images taken. Given tenderness and appearance, CT without facial fractures. - Fall Precautions. - PT/OT consulted. (6) Type 2 diabetes mellitus: Code(s): E11.9 - Type 2 diabetes mellitus without complications Status: Acute Assessment and Plan: - Glucose checks AC and HS with sliding scale insulin. - A1C 6.2% and well controlled. - Hypoglycemia protocol - Diabetic diet - Not on oral antidiabetic medications or insulin outpatient. (7) CHF (congestive heart failure): Code(s): I50.9 - Heart failure, unspecified Status: Acute Assessment and Plan: - ECHO is ordered as one is not available for review in EMR, and in setting of new onset atrial fib. - Continue home medications once they are verified. - Cardiology consulted and appreciate recommendations. Hold furosemide for now as he does not appear in acute exacerbation and was given furosemide IV in the ED. - Daily weight - Strict I&O, Patient appears -3L and lactic acid elevated. Give gentle fluids 1L NS. (8) Chronic kidney disease, stage 3: Code(s): N18.30 - Chronic kidney disease, stage 3 unspecified Status: Acute Assessment and Plan: - Creatinine and BUN at .09/11 - Monitor karen
[2022-03-13 07:50] LABS: Glucose Point of Care 70 mg/dl (65-105)
[2022-03-13] MEDS: ESCITALOPRAM OXALATE 10 MG TABLET PO (08:23)
[2022-03-13] MEDS: lisinopriL 20 MG TABLET PO (08:23)
[2022-03-13] MEDS: ATORVASTATIN 10 MG TABLET PO (08:23)
[2022-03-13] MEDS: FINASTERIDE 5 MG TABLET PO (08:23)
[2022-03-13] MEDS: PANTOPRAZOLE SODIUM IV 40 MG VIAL IV PUSH (08:24)
[2022-03-13] MEDS: traMADol HCL (*CRX) 50 MG TABLET PO ×2 (08:28→20:16)
[2022-03-13] MEDS: HEPARIN SODIUM 5,000 UNITS/ML VIAL 5000 UNITS SUB-Q ×2 (08:28→20:07)
[2022-03-13 08:29] LABS: Basophils Percent Auto 0.3 % (0.2-1.2); Eosinophils Absolute Auto 0.1 K/mm3 (0-0.3); Hematocrit 46.3 % (42.0-52.0); Hemoglobin 13.9 g/dL (14.0-18.0); Immature Granulocyte Absolute 0.05 K/mm3 (0.00-0.031); Immature Granulocyte Percent A 0.4 % (0-0.5); Lymphocytes Percent Auto 6.3 % (18.3-44.2); Mean Corpuscular Hemoglobin 27.3 pg (26-34); Mean Platelet Volume 10.4 fl (7.4-10.4); Monocytes Absolute Auto 0.8 K/mm3 (0.1-0.6); Monocytes Percent Auto 7.4 % (2.6-8.5); Neutrophils Absolute Auto 9.4 K/mm3 (1.3-6.7); Neutrophils Percent Auto 84.6 % (45.5-73.1); Platelet Count Result 206 k/mm3 (150-375); Red Blood Count 5.09 M/mm3 (4.6-6.20); Red Cell Distribution Width 18.5 % (11.5-14.5); White Blood Count 11.2 K/mm3 (4.5-10.0)
[2022-03-13 08:37] LABS: Alanine Aminotransferase 21 U/L (6-50); Albumin Level 3.4 g/dL (3.5-5.1); Alkaline Phosphatase 82 U/L (38-126); Anion Gap 7 mmol/L (8-16); Aspartate Amino Transferase 20 U/L (17-59); Bilirubin,Total 1.3 mg/dL (0.2-1.3); Blood Urea Nitrogen 23 mg/dL (9-20); Calcium 9.8 mg/dL (8.4-10.2); Carbon Dioxide 30 mmol/L (22-30); Chloride 103 mmol/L (98-107); Estimated CRCL calculation 59 ml/min; Estimated Glomerular Filt Rate > 60; Glucose 85 mg/dL (65-110); Potassium 4.2 mmol/L (3.4-5.0); Sodium 140 mmol/L (137-145)
[2022-03-13 08:39] LABS: INR 1.3; Prothrombin Time 15.4 Seconds (11.1-14.7)
[2022-03-13 08:40] LABS: Partial Thromboplastin Time 30.9 SECONDS (22.3-36.8)
[2022-03-13] MEDS: ASPIRIN 81 MG CHEWABLE TABLET 324 MG PO (09:07)
[2022-03-13 10:45] LABS: Lactic Acid Reflex 2.3 mmol/L (0.7-2.0)
[2022-03-13 11:11] LABS: Procalcitonin 0.2 ng/mL
--- NOTE | 2022-03-13 11:20 | PM.PNCARD ---
Progress Note: A&P Assessment and Plan (1) Atrial fibrillation: Qualifiers: Atrial fibrillation type: longstanding persistent Qualified Code(s): I48.11 - Longstanding persistent atrial fibrillation Code(s): I48.91 - Unspecified atrial fibrillation Status: Acute Assessment and Plan: Atrial fibrillation is not a new diagnosis for this patient. I am unable to fine record of Cardiology evaluation/consultation in our system and although pt unaware he is not reliable given his altered mental status. It has been documented persistently by ECG since June 2021. CHADS2 Vasc score 5 (age, HTN, DM, CHF). Has Bled score is also high. Nonetheless, given recent and history of recurrent falls patient would not be deemed a reasonable anticoagulation candidate at this time. -Continue aspirin 325 mg daily. -Continue telemetry. Will give a dose of IV furosemide 40 mg IV times 1 -DVT prophylaxis -AFib is presently rate controlled without directed medical therapy. If tachycardic more persistently low-dose AV manda blocking agent reasonable with metoprolol 12.5 mg twice daily. Will hold off for now. -Clinically, patient does not appear to be in acute decompensated heart failure. (2) Altered mental status: Code(s): R41.82 - Altered mental status, unspecified Status: Acute Assessment and Plan: Concerning presentation for acute CVA with expressive aphasia with word searching, confusion, right-sided weakness. Rule out infection. Electrolytes renal function stable. No evidence of active infection unremarkable urinalysis afebrile without leukocytosis. MRI brain. Further workup per primary service. In light of atrial fibrillation which has been present persistently at least symptom 2020 patient high risk for CVA a given history of multiple / recurrent falls he would not be deemed a good anticoagulation candidate due to high risk for bleeding including catastrophic intracerebral hemorrhage. MRI brain or repeat CT head in 24 hours. Neurology consultation. Continue statin. PT OT. (3) Hypertension associated with type 2 diabetes mellitus: Code(s): E11.59 - Type 2 diabetes mellitus with other circulatory complications; I15.2 - Hypertension secondary to endocrine disorders Status: Acute Assessment and Plan: Hypertensive urgency presentation now well controlled. Continue to monitor closely. Further adjustment in antihypertensives as appropriate based on his BP. (4) History of recent fall: Code(s): Z91.81 - History of falling Status: Acute Assessment and Plan: Patient has a history of several recurrent falls including in the past 2 weeks with superficial head injury and hematoma. No evidence of intracerebral hemorrhage by CT. However, patient high risk for bleeding complications and not a candidate for systemic anticoagulation fortunately. This situation would be further complicated if acute CVA identified on MRI or repeat CT of the brain. (5) Type 2 diabetes mellitus: Code(s): E11.9 - Type 2 diabetes mellitus without complications Status: Acute Assessment and Plan: Management per primary service. Subjective Date/time seen: 03/13/22 11:20 Interval history: Patient is a 81 year old male with medical history of BPH, osteoarthritis, bladder stones, chronic kidney disease stage 3, DJD of the left shoulder, dyslipidemia, hypertension, GERD, kidney stones and diabetes. He presented to the ED, from [facility] for evaluation of altered mental status. CT head and CTA head and neck were without hemorrhage or large vessel occlusion. He was referred for further evaluation of altered mental status, dysarthria and atrial fibrillation. Patient had urinary catheter inserted yesterday evening for urinary retention. He denies c/o chest pain, palpitations, or SOB. No abdominal or flank pain. He does have left shoulder pain and has difficulty moving his left
[2022-03-13 11:34] LABS: Glucose Point of Care 143 mg/dl (65-105)
[2022-03-13] MEDS: LIDOCAINE 5% PATCH 1 PATCH TRANSDERM (11:36)
[2022-03-13 12:48] LABS: Folic Acid 11.9 ng/mL (2.76->20)
[2022-03-13 13:21] LABS: Reflex Lactic Acid Yes or No Add Lactic
[2022-03-13 14:31] LABS: Lactic Acid 2.3 mmol/L (0.7-2.0)
[2022-03-13 14:58] LABS: Appearance Urine Cloudy (Clear); Bilirubin Urine Negative (Negative); Blood Urine 3+ (Negative); Glucose Urine UA Negative (Negative); Ketones Urine Negative (Negative); Leukocyte Esterase Ur 1+ LEU/UL (Negative); Nitrate Urine Negative (Negative); Protein Urine 2+ mg/dL (Negative); Urobilinogen Urine 0.2 mg/dL (<2.0); pH Urine 5.5 (5.0-9.0)
[2022-03-13 15:16] LABS: Bacteria Urine Trace /hpf; Mucus Urine Few /lpf; RBC Urine >75 /hpf (0-2); Squamous Epithelial Cell Urine Rare /hpf (Few); WBC Urine 16-20 /hpf
[2022-03-13 15:17] LABS: Add Urine Microscopic? YES; Color Urine Light Red (Yellow)
[2022-03-13] MEDS: levoFLOXacin 750 MG TABLET PO (16:31)
[2022-03-13 16:55] LABS: Glucose Point of Care 121 mg/dl (65-105)
[2022-03-13 17:51] LABS: Lactic Acid Reflex 1.3 mmol/L (0.7-2.0)
[2022-03-13] MEDS: SODIUM CHLORIDE 0.9% IV 1,000 ML 75 ML IV CONT (18:09)
[2022-03-13] MEDS: FUROSEMIDE INJ 40 MG/4 ML VIAL IV PUSH (20:05)
[2022-03-13 20:38] LABS: Glucose Point of Care 120 mg/dl (65-105)
--- NOTE | 2022-03-13 21:38 | WPDURCON ---
Assessment and Plan Assessment and plan (1) Urinary retention with incomplete bladder emptying: Code(s): R33.9 - Retention of urine, unspecified Status: Acute Assessment and Plan: could be due to his BPH. Could be due to his altered mental status. It any rate I would keep the Millan catheter for now until he is more oriented. In light of the cystoscopic findings I would prefer to keep the Millan catheter for at least 5 days. (2) Complication of Millan catheter: Code(s): T83.9XXA - Unspecified complication of genitourinary prosthetic device, implant and graft, initial encounter Status: Acute Assessment and Plan: I attempted to place catheter at the bedside. It irrigated fairly poorly. I then decided to perform cystoscopy. A false passage was noted posteriorly. I was able to get into the bladder. He had significant trabeculations. I placed a guidewire into the bladder and I was able place a 16 [place] catheter easily. [place] urine was returned. The I irrigated the catheter there is no significant clots. of note this was a complex Millan catheter placement Urology Consult Note HPI Date Seen: 03/13/22 Requesting Physician: Rabia Cesar MD Primary Care Provider: Agustin Singh DO Family Provider: This is a gentleman who had a recent fall. He is brought in from his nursing facility for mental status changes. if Millan catheter is placed due to 700 cc in his bladder. The catheter irrigated poorly. Urology was consulted. I attempted to change his Millan at the bedside. It was still difficult to irrigate. He is status post TURP for BPH in 2014. I felt his catheter was probably not in the correct position. I decided to perform cystoscopy to replace the catheter and direct vision. there is some hematuria noted due to multiple Millan catheter attempts. Consult Narrative Narrative: Kishore Koroma Sr. is a 81 year old male Review of Systems Review of Systems: I largely unable to obtain. He has definite confusion and changes in mental status PMFSH Past Medical History Medical History (Updated 03/13/22 @ 21:42 by Alden Paniagua MD) Actinic keratosis Benign prostatic hyperplasia Bilateral primary osteoarthritis of hip (~06/2021) Bladder stones Chronic kidney disease, stage 3 Baseline creatinine ranges between 1.40 and 1.60. 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 Urinary retention with incomplete bladder emptying Wears glasses Surgical History Surgical History History of arthroplasty of left knee History of arthroscopy of both knees History of colonoscopy with polypectomy History of cystoscopy History of laparoscopic cholecystectomy (2013) History of lithotripsy History of nasal septoplasty (2006) With bilateral inferior turbinectomy. History of transurethral resection of prostate History of ventral hernia repair (2005) Status post excision of lipoma Anterior abdominal wall. Status post hammertoe correction OR as OP on Rt. 2nd and 5th MCP joints approx. 2017 Family History Family History Father Acute myocardial infarction Mother Breast cancer Hypertension Sibling Leukemia Sibling Lung cancer Other Arthritis Social History Social History Social History: Surrogate decision maker: Kishore Koroma Jr, son. Code status: Full code. Smoking status: Former smoker Tobacco type: cigarettes Second hand tobacco smoke exposure: Yes Alcohol intake: unknown Substance use: unknown Substance use type: does not use Additional living arrangements comments: The
[2022-03-14] VITALS (10 sets, daily range): BP systolic 110–164; BP diastolic 67–98; PULSE 80–107; RESP 17–20; TEMP 36.5–36.9; O2SAT 93–97
[2022-03-14 05:18] LABS: Basophils Percent Auto 0.1 % (0.2-1.2); Eosinophils Absolute Auto 0.1 K/mm3 (0-0.3); Eosinophils Percent Auto 0.6 % (0-4.4); Hemoglobin 13.3 g/dL (14.0-18.0); Immature Granulocyte Absolute 0.04 K/mm3 (0.00-0.031); Immature Granulocyte Percent A 0.5 % (0-0.5); Lymphocytes Absolute Auto 0.43 K/mm3 (0.9-3.2); Lymphocytes Percent Auto 5.3 % (18.3-44.2); Mean Corpuscular HGB Conc 30.9 g/dl (32-36); Mean Corpuscular Hemoglobin 27.8 pg (26-34); Mean Platelet Volume 10.3 fl (7.4-10.4); Monocytes Absolute Auto 0.7 K/mm3 (0.1-0.6); Monocytes Percent Auto 8.7 % (2.6-8.5); Neutrophils Absolute Auto 6.9 K/mm3 (1.3-6.7); Neutrophils Percent Auto 84.8 % (45.5-73.1); Platelet Count Result 182 k/mm3 (150-375); Red Blood Count 4.78 M/mm3 (4.6-6.20); Red Cell Distribution Width 17.7 % (11.5-14.5); White Blood Count 8.1 K/mm3 (4.5-10.0)
[2022-03-14 05:32] LABS: Anion Gap 7 mmol/L (8-16); Blood Urea Nitrogen 24 mg/dL (9-20); Carbon Dioxide 31 mmol/L (22-30); Chloride 102 mmol/L (98-107); Estimated CRCL calculation 64 ml/min; Estimated Glomerular Filt Rate > 60; Glucose 95 mg/dL (65-110); Potassium 3.8 mmol/L (3.4-5.0); Sodium 140 mmol/L (137-145)
[2022-03-14 07:34] LABS: Glucose Point of Care 89 mg/dl (65-105)
[2022-03-14] MEDS: lisinopriL 20 MG TABLET PO (08:36)
[2022-03-14] MEDS: ESCITALOPRAM OXALATE 10 MG TABLET PO (08:36)
[2022-03-14] MEDS: FINASTERIDE 5 MG TABLET PO (08:36)
[2022-03-14] MEDS: ATORVASTATIN 10 MG TABLET PO (08:36)
[2022-03-14] MEDS: ASPIRIN 81 MG CHEWABLE TABLET 324 MG PO (08:37)
[2022-03-14] MEDS: LIDOCAINE 5% PATCH 1 PATCH TRANSDERM (08:37)
[2022-03-14] MEDS: PANTOPRAZOLE SODIUM IV 40 MG VIAL IV PUSH (08:37)
[2022-03-14] MEDS: HEPARIN SODIUM 5,000 UNITS/ML VIAL 5000 UNITS SUB-Q ×2 (08:37→19:58)
[2022-03-14] MEDS: levoFLOXacin 750 MG TABLET PO (08:37)
[2022-03-14] MEDS: traMADol HCL (*CRX) 50 MG TABLET PO ×2 (08:39→19:58)
--- NOTE | 2022-03-14 08:40 | PM.IMPN ---
Progress Note: A&P Assessment and Plan (1) Altered mental status: Code(s): R41.82 - Altered mental status, unspecified Status: Acute Assessment and Plan: 03/11/22 CT of brain negative for acute findings. CTA brain and neck without large vessel obstruction. - Neurology consulted and appreciate recommendations. Aspirin 325 mg PO daily. Fall precautions. re-orient as needed. Neuro checks. Monitor BP. EKG with rate-controlled afib. Review of EKGs shows this has been present since 06/2021. 03/12/22 Speech eval at bedside and recommended modified barium study, which was abnormal. Pureed/mild thick liquids recommended. Cognition appears improved. Patient reportedly unable to follow directions or sit still for MRI, per nursing. 03/13/22 TTE - moderate LVH, LA dilation, normal LV sysolic function, EF 59%, no PFO. - Lactic acid 2.3, WBC elevated, CXR with possible infiltrates and UA 1+ leukocytes and bacteria. Levaquin 750 mg PO Q24 hours x5 days started empiric. repeat lactic acid 1.3 after 1L NS fluids and antibiotics. 03/14/22 MRI brain pending. BP 164/86, HR 84. Resume lasix 40 mg daily and increase lisinopril 40 mg daily. (2) Atrial fibrillation: Qualifiers: Atrial fibrillation type: longstanding persistent Qualified Code(s): I48.11 - Longstanding persistent atrial fibrillation Code(s): I48.91 - Unspecified atrial fibrillation Status: Acute Assessment and Plan: [id number] score: 5 (for age, gender, CHF history, HTN and DM history.) - Telemetry monitoring: chronic afib rate controlled. Not on AV node blockade medication. - Cardiology consulted and appreciate recommendations. - Pt. has had repeated falls and is not a good candidate for anticoagulation due to high risk for major bleeding. 03/14/22 Unchanged. (3) Abnormal chest xray: Code(s): R93.89 - Abnormal findings on diagnostic imaging of other specified body structures Status: Acute Assessment and Plan: Imaging demonstrated Atelectasis versus pneumonia with small pleural effusions. Pt. received a dose of Lasix in ER. He does not appear to be volume overloaded on exam. Appears euvolemic 03/13/22 Repeat CXR 03/13 unchanged. WBC 11 and lactic acid 2.3. Start empiric levaquin 750 mg PO daily x5 days for presumed pneumonia. Added incentive spirometry. MRSA nasal swab r/o colonization and risk for MRSA pneumonia. Patient <48 hours hospital stay. Repeat lactic acid 1.3. 03/14/22 Day 2 empiric antibiotic. WBC normalized. (4) Urinary retention: Code(s): R33.9 - Retention of urine, unspecified Status: Acute Assessment and Plan: 03/12/22 H/O BPH. Patient unable to void. Proscar resumed 03/11/22. Bladder scan >250 mL, but not documented by nursing. Salamanca catheter inserted and nursing reports some blood-tinge and poor floor. -03/13/22 hematuria noted. UA 3+ blood. Catheter with poor flow per nursing and no return following catheter flush. Urology consulted. Cystoscopy done. Difficult catheter insertion (see Urology notes). Recommend keeping salamanca x 5 days, then consider voiding trial. 03/14/22 Salamanca patient. Small pink-tinged urine. H/H stable. (5) History of recent fall: Code(s): Z91.81 - History of falling Status: Acute Assessment and Plan: Large facial hematoma on orbit of left eye with tenderness, bruising of various stages and mild edema on admission 03/11/22 CT without fractures. - Fall Precautions. - PT/OT consulted. (6) Type 2 diabetes mellitus: Code(s): E11.9 - Type 2 diabetes mellitus without complications Status: Acute Assessment and Plan: Glucose checks AC and HS with sliding scale insulin. - A1C 6.2% and well controlled. - Hypoglycemia protocol - Diabetic diet - Not on oral antidiabetic medications or insulin outpatient. 03/14/22 Stable. (7) CHF (congestive heart failure): Code(s): I50.9 - Heart failure, unspecified Status:
--- NOTE | 2022-03-14 10:26 | PM.PNCARD ---
Progress Note: A&P Assessment and Plan (1) Atrial fibrillation: Qualifiers: Atrial fibrillation type: longstanding persistent Qualified Code(s): I48.11 - Longstanding persistent atrial fibrillation Code(s): I48.91 - Unspecified atrial fibrillation Status: Acute Assessment and Plan: Patient with persistent atrial fibrillation with controlled ventricular response. High CHADSVASc and HASBLED score, but not a candidate for anticoagulation due to recurrent falls. - Heart rate is controlled without AV manda blocking agents at this time. Continue to monitor, and may add low-dose beta-monika as necessary for rate control. - patient has not deemed to be a candidate for anticoagulation due to recurrent falls. Spoke with patient about option of left atrial appendage occlusion. Outpatient evaluation will be arranged for the patient. -Continue aspirin for now. -Continue to monitor on telemetry for now. (2) Altered mental status: Code(s): R41.82 - Altered mental status, unspecified Status: Acute Assessment and Plan: Mental status improved. Neurology consultation. PT OT. (3) Hypertension associated with type 2 diabetes mellitus: Code(s): E11.59 - Type 2 diabetes mellitus with other circulatory complications; I15.2 - Hypertension secondary to endocrine disorders Status: Acute Assessment and Plan: Management per primary team (4) History of recent fall: Code(s): Z91.81 - History of falling Status: Acute Assessment and Plan: PT OT evaluation and management (5) Type 2 diabetes mellitus: Code(s): E11.9 - Type 2 diabetes mellitus without complications Status: Acute Assessment and Plan: Management per primary service. Time Spent With Patient Time with patient: 25 - 35 minutes Subjective Date/time seen: 03/14/22 10:26 Interval history: Date of service 03/14/2022- patient was undergoing speech therapy at the time of evaluation. He was resting comfortably in the bed, and denies any ongoing symptoms of chest pain or shortness of breath. He was alert, and able to speak at the time of evaluation today. On telemetry, he is in atrial fibrillation with controlled ventricular response. Exam Narrative: PHYSICAL EXAMINATION: GENERAL: Elderly male, Alert, no acute distress MENTAL STATUS: affect appropriate to mood EYES: Extraocular movements intact, no pallor EARS: External ears appear normal, hearing grossly normal NOSE: Normal and patent, no discharge MOUTH: Mucous membranes moist, tongue normal NECK: Supple, no JVD CHEST: clear to auscultation HEART: Normal rate, irregularly irregular rhythm ABDOMEN: Soft, nontender NEUROLOGICAL: Alert, speech is coherent at this time MUSCULOSKELETAL: no amputation EXTREMITIES: trace pedal edema, no clubbing, no cyanosis SKIN: erythema lower extremity PSYCHIATRIC: Normal mood, appropriate affect Objective Data Vital Signs Vital Signs: Vital Signs - 24 hr 03/13/22 14:37 03/13/22 12:00 03/13/22 16:00 Temperature 36.1 C L Pulse Rate 83 77 86 Respiratory Rate 20 Blood Pressure 135/64 Pulse Oximetry 96 03/13/22 19:57 03/14/22 04:28 03/13/22 20:00 Temperature 36.4 C L 36.6 C Pulse Rate 93 107 H 83 Respiratory Rate 28 H 20 Blood Pressure 155/87 H 164/98 H Pulse Oximetry 95 97 03/14/22 00:00 03/14/22 04:00 03/14/22 08:33 Temperature Pulse Rate 88 80 Respiratory Rate Blood Pressure 164/86 H Pulse Oximetry Intake/Output Intake/Output: Intake & Output 03/11/22 03/12/22 03/13/22 03/14/22 23:59 23:59 23:59 23:59 Intake Total 640 1240 1320 Output Total 1350 1325 9835 625 [facility]1419 [phone] Meds/Results Medications: Active Medications Generic Name Dose Route Start Last Admin Trade Name Freq PRN Reason Stop Dose Admin Acetaminophen 650 mg 03/12/22 04:15 03/12/22 04:26 Acetaminoph
--- NOTE | 2022-03-14 10:52 | WPDUROPN2 ---
Progress Note: A&P Assessment and Plan (1) Urinary retention: Code(s): R33.9 - Retention of urine, unspecified Status: Acute Assessment and Plan: Catheter draining to gravity without difficultly. Recommend keeping his salamanca in for 5 days, then ok to do a voiding trial. (2) Complication of Salamanca catheter: Code(s): T83.9XXA - Unspecified complication of genitourinary prosthetic device, implant and graft, initial encounter Status: Acute (3) Gross hematuria: Code(s): R31.0 - Gross hematuria Status: Acute Plan Improving, ok to irrigate PRN. Subjective Subjective Date/Time Seen: 03/14/22 10:52 Bedside Cystoscopy with difficult catheter placement. The patient had a previous catheter placed with balloon blown up in the urethra, which caused bleeding and the catheter to not drain well. Today his urine is a light pink and is draining without difficulty. No clots noted, he denies pain. Post Op day: 1 Review of Systems Cardiovascular: Cardiovascular: Denies chest pain Gastrointestinal: Gastrointestinal: Denies abdominal pain Genitourinary: Genitourinary: Reports hematuria and Denies flank pain Exam Const: General: comfortable Resp: Effort & Inspection: normal respiratory effort Cardio: Rate: regular rate GI: GI Palp: Yes Soft to palpation and No Tenderness to palpation present (GI) : General: Yes no CVA tenderness Meatus: Blood at meatus present Urinary Catheter: Urinary Catheter: patent and draining, urine clear and urine pink Extrem: Right lower extremity: no edema Left lower extremity: no edema Objective Data Vital Signs Vital Signs: Vital Signs - 24 hr 03/13/22 14:37 03/13/22 12:00 03/13/22 16:00 Temperature 97 F L Pulse Rate 83 77 86 Respiratory Rate 20 Blood Pressure 135/64 Pulse Oximetry 96 03/13/22 19:57 03/14/22 04:28 03/13/22 20:00 Temperature 97.5 F L 97.9 F Pulse Rate 93 107 H 83 Respiratory Rate 28 H 20 Blood Pressure 155/87 H 164/98 H Pulse Oximetry 95 97 03/14/22 00:00 03/14/22 04:00 03/14/22 08:33 Temperature Pulse Rate 88 80 Respiratory Rate Blood Pressure 164/86 H Pulse Oximetry Intake/Output Intake/Output: Intake & Output 03/11/22 03/12/22 03/13/22 03/14/22 23:59 23:59 23:59 23:59 Intake Total 640 1240 1320 Output Total 4073 8101 9685 625 Balance -[phone] -[phone] Meds/Results Medications: Active Medications Generic Name Dose Route Start Last Admin Trade Name hSamarq PRN Reason Stop Dose Admin Acetaminophen 650 mg 03/12/22 04:15 03/12/22 04:26 Acetaminophen 325 Mg Tablet PO 650 mg Q6H PRN Administration Mild Pain (1-3) or Fever Aspirin 324 mg 03/13/22 08:00 03/14/22 08:37 Aspirin 81 Mg Chewable Tablet PO 324 mg DAILY@0800 SAMIA Administration Atorvastatin Calcium 10 mg 03/12/22 09:00 03/14/22 08:36 Atorvastatin 10 Mg Tablet PO 10 mg DAILY SAMIA Administration Dextrose 12.5 gm 03/11/22 20:23 Dextrose 50% 25 Gm/50 Ml Syringe IV PUSH PRN PRN Hypoglycemia Protocol Escitalopram Oxalate 10 mg 03/12/22 09:00 03/14/22 08:36 Escitalopram Oxalate 10 Mg Tablet PO 10 mg DAILY SAMIA Administration Finasteride 5 mg 03/12/22 09:00 03/14/22 08:36 Finasteride 5 Mg Tablet PO 5 mg DAILY SAMIA Administration Glucagon 1 mg 03/11/22 20:23 Glucagon For Inj 1 Mg Vial IM PRN PRN Hypoglycemia Protocol Glucose 15 gm 03/11/22 20:23 Glucose Oral Gel 15 Gm Of Glucse In 37.5 Gm Tube PO PRN PRN Hypoglycemia Protocol Heparin Sodium (Porcine) 5,000 units 03/13/22 09:00 03/14/22 08:37 Heparin Sodium 5,000 Units/Ml Vial SUB-Q 5,000 units Q12HR SAMIA Administration Dextrose 1,000 mls @ 100 mls/hr 03/11/22 20:23 Dextrose 5% 1,000 Ml IVPB PRN PRN Hypoglycemia Protocol Insulin Aspart 2 - 5 units 03/12/22 08:00 03/14/22 08:30 Insulin Aspart (*Bkc) 100 U
[2022-03-14 11:37] LABS: Glucose Point of Care 95 mg/dl (65-105)
[2022-03-14] MEDS: FUROSEMIDE 40 MG TABLET PO (13:58)
[2022-03-14 16:56] LABS: Glucose Point of Care 104 mg/dl (65-105)
--- NOTE | 2022-03-14 20:10 | PC.NURSE ---
Millan irrigated with sterile water, no blood or clots present, pt tolerated with minimal complaints.
[2022-03-15] VITALS: PULSE 94
[2022-03-15 04:00] VITALS: BP 160/91; PULSE 94; PULSE 95; RESP 18; TEMP 36.6; O2SAT 92
--- NOTE | 2022-03-15 07:40 | PM.IMPN ---
Progress Note: A&P Assessment and Plan (1) Altered mental status: Code(s): R41.82 - Altered mental status, unspecified Status: Acute Assessment and Plan: 03/11/22 CT of brain negative for acute findings. CTA brain and neck without large vessel obstruction. - Neurology consulted and appreciate recommendations. Aspirin 325 mg PO daily. Fall precautions. re-orient as needed. Neuro checks. Monitor BP. EKG with rate-controlled afib. Review of EKGs shows this has been present since 06/2021. 03/12/22 Speech eval at bedside and recommended modified barium study, which was abnormal. Pureed/mild thick liquids recommended. Cognition appears improved. Patient reportedly unable to follow directions or sit still for MRI, per nursing. 03/13/22 TTE - moderate LVH, LA dilation, normal LV sysolic function, EF 59%, no PFO. - Lactic acid 2.3, WBC elevated, CXR with possible infiltrates and UA 1+ leukocytes and bacteria. Levaquin 750 mg PO Q24 hours x5 days started empiric. repeat lactic acid 1.3 after 1L NS fluids and antibiotics. 03/14/22 MRI brain pending. BP 164/86, HR 84. Resume lasix 40 mg daily and increase lisinopril 40 mg daily. 03/15/2022 MRI continues to pend, pending neurology's evaluation. Home medications were resumed. (2) Atrial fibrillation: Qualifiers: Atrial fibrillation type: longstanding persistent Qualified Code(s): I48.11 - Longstanding persistent atrial fibrillation Code(s): I48.91 - Unspecified atrial fibrillation Status: Acute Assessment and Plan: [id number] score: 5 (for age, gender, CHF history, HTN and DM history.) - Telemetry monitoring: chronic afib rate controlled. Not on AV node blockade medication. - Cardiology consulted and appreciate recommendations. - Pt. has had repeated falls and is not a good candidate for anticoagulation due to high risk for major bleeding. 03/14/22 Unchanged. Stable (3) Abnormal chest xray: Code(s): R93.89 - Abnormal findings on diagnostic imaging of other specified body structures Status: Acute Assessment and Plan: Imaging demonstrated Atelectasis versus pneumonia with small pleural effusions. Pt. received a dose of Lasix in ER. He does not appear to be volume overloaded on exam. Appears euvolemic 7/25/22 Repeat CXR 03/13 unchanged. WBC 11 and lactic acid 2.3. Start empiric levaquin 750 mg PO daily x5 days for presumed pneumonia. Added incentive spirometry. MRSA nasal swab r/o colonization and risk for MRSA pneumonia. Patient <48 hours hospital stay. Repeat lactic acid 1.3. 03/14/22 Day 2 empiric antibiotic. WBC normalized. 03/15/2022 Patient demonstrated possible aspiration in modified barium swallow. Patient has received 3 of 5 doses of Levaquin. (4) Urinary retention: Code(s): R33.9 - Retention of urine, unspecified Status: Acute Assessment and Plan: 03/12/22 H/O BPH. Patient unable to void. Proscar resumed 03/11/22. Bladder scan >250 mL, but not documented by nursing. Salamanca catheter inserted and nursing reports some blood-tinge and poor floor. -03/13/22 hematuria noted. UA 3+ blood. Catheter with poor flow per nursing and no return following catheter flush. Urology consulted. Cystoscopy done. Difficult catheter insertion (see Urology notes). Recommend keeping salamanca x 5 days, then consider voiding trial. 03/14/22 Salamanca patient. Small pink-tinged urine. H/H stable. 03/15/2022 urology recommended keeping the Salamanca for approximately 5 days and attempting a voiding trial (5) History of recent fall: Code(s): Z91.81 - History of falling Status: Acute Assessment and Plan: Large facial hematoma on orbit of left eye with tenderness, bruising of various stages and mild edema on admission 03/11/22 CT without fractures. - Fall Precautions. - PT/OT consulted. (6) Type 2 diabetes mellitus: Code(s): E11.9 - Type 2 diabetes mellitus without complications Status: Acute Assessment
[2022-03-15 07:48] LABS: Glucose Point of Care 85 mg/dl (65-105)
[2022-03-15 08:16] LABS: Basophils Percent Auto 0.2 % (0.2-1.2); Eosinophils Percent Auto 0.3 % (0-4.4); Hematocrit 44.8 % (42.0-52.0); Hemoglobin 13.5 g/dL (14.0-18.0); Immature Granulocyte Absolute 0.05 K/mm3 (0.00-0.031); Immature Granulocyte Percent A 0.8 % (0-0.5); Lymphocytes Absolute Auto 0.48 K/mm3 (0.9-3.2); Lymphocytes Percent Auto 8.1 % (18.3-44.2); Mean Corpuscular HGB Conc 30.1 g/dl (32-36); Mean Corpuscular Hemoglobin 27.2 pg (26-34); Mean Corpuscular Volume 90.3 fl (80-100); Monocytes Absolute Auto 0.8 K/mm3 (0.1-0.6); Monocytes Percent Auto 13.3 % (2.6-8.5); Neutrophils Absolute Auto 4.6 K/mm3 (1.3-6.7); Neutrophils Percent Auto 77.3 % (45.5-73.1); Platelet Count Result 173 k/mm3 (150-375); Red Blood Count 4.96 M/mm3 (4.6-6.20); Red Cell Distribution Width 17.9 % (11.5-14.5); White Blood Count 5.9 K/mm3 (4.5-10.0)
[2022-03-15 08:17] VITALS: BP 154/76; PULSE 89; RESP 18; TEMP 36.3; O2SAT 97
[2022-03-15] MEDS: ESCITALOPRAM OXALATE 10 MG TABLET PO (08:19)
[2022-03-15] MEDS: ASPIRIN 81 MG CHEWABLE TABLET 324 MG PO (08:19)
[2022-03-15] MEDS: levoFLOXacin 750 MG TABLET PO (08:19)
[2022-03-15] MEDS: PANTOPRAZOLE SODIUM IV 40 MG VIAL IV PUSH (08:19)
[2022-03-15] MEDS: LIDOCAINE 5% PATCH 1 PATCH TRANSDERM (08:19)
[2022-03-15] MEDS: FINASTERIDE 5 MG TABLET PO (08:19)
[2022-03-15] MEDS: ATORVASTATIN 10 MG TABLET PO (08:19)
[2022-03-15] MEDS: HEPARIN SODIUM 5,000 UNITS/ML VIAL 5000 UNITS SUB-Q ×2 (08:19→20:24)
[2022-03-15] MEDS: FUROSEMIDE 40 MG TABLET PO (08:19)
[2022-03-15] MEDS: traMADol HCL (*CRX) 50 MG TABLET PO ×2 (08:21→20:24)
[2022-03-15 08:23] LABS: Alanine Aminotransferase 19 U/L (6-50); Albumin Level 3.3 g/dL (3.5-5.1); Alkaline Phosphatase 75 U/L (38-126); Ammonia < 9 umol/L (9-30); Anion Gap 9 mmol/L (8-16); Aspartate Amino Transferase 22 U/L (17-59); Bilirubin,Total 0.7 mg/dL (0.2-1.3); Blood Urea Nitrogen 24 mg/dL (9-20); Calcium 9.1 mg/dL (8.4-10.2); Carbon Dioxide 30 mmol/L (22-30); Chloride 101 mmol/L (98-107); Estimated CRCL calculation 58 ml/min; Estimated Glomerular Filt Rate > 60; Glucose 79 mg/dL (65-110); Potassium 3.9 mmol/L (3.4-5.0); Sodium 140 mmol/L (137-145)
--- NOTE | 2022-03-15 09:02 | PM.PNCARD ---
Progress Note: A&P Assessment and Plan (1) Atrial fibrillation: Qualifiers: Atrial fibrillation type: longstanding persistent Qualified Code(s): I48.11 - Longstanding persistent atrial fibrillation Code(s): I48.91 - Unspecified atrial fibrillation Status: Acute Assessment and Plan: Patient with persistent atrial fibrillation with controlled ventricular response. High CHADSVASc and HASBLED score, but not a candidate for anticoagulation due to recurrent falls. - Heart rate is controlled without AV manda blocking agents at this time. Continue to monitor, and may add low-dose beta-monika as necessary for rate control. - patient has not deemed to be a candidate for anticoagulation due to recurrent falls. Spoke with patient about option of left atrial appendage occlusion. Outpatient evaluation will be arranged for the patient. -Continue aspirin for now. Will discontinue telemetry today (2) Altered mental status: Code(s): R41.82 - Altered mental status, unspecified Status: Acute Assessment and Plan: Mental status improved. PT OT. (3) Hypertension associated with type 2 diabetes mellitus: Code(s): E11.59 - Type 2 diabetes mellitus with other circulatory complications; I15.2 - Hypertension secondary to endocrine disorders Status: Acute Assessment and Plan: Management per primary team (4) History of recent fall: Code(s): Z91.81 - History of falling Status: Acute Assessment and Plan: PT OT evaluation and management (5) Type 2 diabetes mellitus: Code(s): E11.9 - Type 2 diabetes mellitus without complications Status: Acute Assessment and Plan: Management per primary service. Subjective Date/time seen: 03/15/22 09:02 Interval history: 81-year-old admitted because of atrial fibrillation and AMS Date of service 03/15/2022-no chest pain or shortness of breath. He was alert but confused On telemetry, he is in atrial fibrillation with controlled ventricular response. Review of Systems Review of Systems: All systems reviewed & are unremarkable except as noted in HPI and below Constitutional: Constitutional: Reports as per HPI and Reports no additional constitutional complaints Eyes: Eyes: Reports as per HPI and Reports no additional eye complaints ENT: Reports system reviewed and no additional complaints, except as documented and Reports as per HPI Cardiovascular: Cardiovascular: Reports as per HPI, Reports no additional cardiovascular complaints, Denies chest pain and Reports pedal edema Respiratory: Respiratory: Reports as per HPI and Reports no additional respiratory complaints Gastrointestinal: Gastrointestinal: Reports as per HPI and Reports no additional gastrointestinal complaints Genitourinary: Genitourinary: Reports no additional male genitourinary complaints and Reports as per HPI Musculoskeletal: Musculoskeletal: Reports no additional musculoskeletal complaints and Reports as per HPI Integumentary/Breasts: Skin/Breast: Reports system reviewed and no additional complaints, except as docu, Reports as per HPI and Reports erythema Neurologic: Reports system reviewed and no additional complaints, except as documented and Reports as per HPI Psychiatric: Psychiatric: Reports no additional psychiatric complaints and Reports as per HPI Endocrine: Endocrine: Reports no additional endocrine complaints and Reports as per HPI Hematologic/Lymphatic: Hematologic/Lymphatic: Reports no additional hematologic/lymphatic complaints and Reports as per HPI Allergic/Immunologic: Allergic/Immunologic: Reports no additional allergic/immunologic complaints and Reports as per HPI Exam Narrative: PHYSICAL EXAMINATION: GENERAL: Elderly male, Alert, no acute distress MENTAL STATUS: affect appropriate to mood EYES: Extraocular movements intact, no pallor EARS: External ears appear normal, hearing grossly violetta
[2022-03-15] MEDS: lisinopriL 20 MG TABLET PO (10:20)
--- NOTE | 2022-03-15 10:37 | PC.NURSE ---
Telemetry discontinued. 0800 telemetry was Pulse- 87, QRS- 0.08, Rhythm- A-Fib
[2022-03-15 10:45] VITALS: O2SAT 95
[2022-03-15 11:42] LABS: Glucose Point of Care 95 mg/dl (65-105)
[2022-03-15 14:00] VITALS: BP 140/80; PULSE 68; RESP 18; TEMP 36.9; O2SAT 96
--- NOTE | 2022-03-15 14:55 | WPDCDIQUERY2 ---
CDI Query Clarification Request 03/14 Hospitalist documented: Abnormal chest xray: ?Code(s): R93.89 - Abnormal findings on diagnostic imaging of other specified body structures ?Status:?Acute ?Assessment and Plan: - Imaging demonstrated Atelectasis versus pneumonia with small pleural effusions. Repeat CXR 03/13 unchanged. WBC 11 and lactic acid 2.3. - Pt. received a dose of Lasix in ER. - He does not appear to be volume overloaded on exam. Appears euvolemic - Transthoracic echo pending. - Start empiric levaquin 750 mg PO daily x5 days for presumed pneumonia. - Add incentive spirometry. - MRSA nasal swab r/o colonization and risk for MRSA pneumonia. Patient <48 hours hospital stay. - Repeat lactic acid at 1800 03/13 Repeat lactic acid 1.3 03/14/22 Day 2 empiric antibiotic. WBC normalized. 03/15/2022 Patient demonstrated possible aspiration in modified barium swallow.? Patient has received 3 of 5 doses of Levaquin. Please clarify if diagnosis: Pneumonia has been ruled in or ruled out. If ruled in, please add to problem list <Trista Segovia - Last Filed: 03/15/22 15:02> 03/14 Hospitalist documented: Abnormal chest xray: ?Code(s): R93.89 - Abnormal findings on diagnostic imaging of other specified body structures ?Status:?Acute ?Assessment and Plan: - Imaging demonstrated Atelectasis versus pneumonia with small pleural effusions. Repeat CXR 03/13 unchanged. WBC 11 and lactic acid 2.3. - Pt. received a dose of Lasix in ER. - He does not appear to be volume overloaded on exam. Appears euvolemic - Transthoracic echo pending. - Start empiric levaquin 750 mg PO daily x5 days for presumed pneumonia. - Add incentive spirometry. - MRSA nasal swab r/o colonization and risk for MRSA pneumonia. Patient <48 hours hospital stay. - Repeat lactic acid at 1800 03/13 Repeat lactic acid 1.3 03/14/22 Day 2 empiric antibiotic. WBC normalized. 03/15/2022 Patient demonstrated possible aspiration in modified barium swallow.? Patient has received 3 of 5 doses of Levaquin.--patient currently being treated for possible aspiration pneumonia-- Please clarify if diagnosis: Pneumonia has been ruled in or ruled out. If ruled in, please add to problem list <Mary Herrera APRN - Last Filed: 03/15/22 15:22>
[2022-03-15 16:52] LABS: Glucose Point of Care 101 mg/dl (65-105)
[2022-03-15 19:12] VITALS: BP 156/68; PULSE 87; RESP 17; TEMP 36.1; O2SAT 90
[2022-03-15 20:33] LABS: Glucose Point of Care 98 mg/dl (65-105)
[2022-03-16 03:28] VITALS: BP 160/82; PULSE 83; RESP 20; TEMP 36.1; O2SAT 94
--- NOTE | 2022-03-16 04:37 | PC.NURSE ---
0415 ENTERED PT ROOM AFTER PT SET OFF BED ALARM AND NOTICED PT GOWN WAS WET. PT HAD DISCONNECTED THE TUBING OF HIS MORGAN AND RIPPED OFF THE STAT LOCK DEVICE TO HIS LEG. REATTACHED THE TUBING AND URINE BEGAN TO DRAIN BACK INTO THE BAG. REPLACED STAT LOCK AND APPLIED AN PANTERA WRAP AROUND THE PT LEG TO PREVENT HIM FROM PULLING AT MORGAN. PT HAS BEEN RESTLESS ALL NIGHT ATTEMPTING TO GET OUT OF BED AND TALKING TO HIMSELF.
--- NOTE | 2022-03-16 06:47 | PM.DS ---
DS: Admitting Diagnosis Discharge Date 03/16/2022 Admitting Diagnosis A.m. S AFib Abnormal chest x-ray Urinary retention DS: Discharge Diagnosis Discharge Diagnosis (1) Altered mental status: Code(s): R41.82 - Altered mental status, unspecified Status: Acute Assessment and Plan: 03/11/22 CT of brain negative for acute findings. CTA brain and neck without large vessel obstruction. - Neurology consulted and appreciate recommendations. Aspirin 325 mg PO daily. Fall precautions. re-orient as needed. Neuro checks. Monitor BP. EKG with rate-controlled afib. Review of EKGs shows this has been present since 06/2021. 03/12/22 Speech eval at bedside and recommended modified barium study, which was abnormal. Pureed/mild thick liquids recommended. Cognition appears improved. Patient reportedly unable to follow directions or sit still for MRI, per nursing. 03/13/22 TTE - moderate LVH, LA dilation, normal LV sysolic function, EF 59%, no PFO. - Lactic acid 2.3, WBC elevated, CXR with possible infiltrates and UA 1+ leukocytes and bacteria. Levaquin 750 mg PO Q24 hours x5 days started empiric. repeat lactic acid 1.3 after 1L NS fluids and antibiotics. 03/14/22 MRI brain pending. BP 164/86, HR 84. Resume lasix 40 mg daily and increase lisinopril 40 mg daily. 03/15/2022 MRI continues to pend, pending neurology's evaluation. Home medications were resumed. (2) Atrial fibrillation: Qualifiers: Atrial fibrillation type: longstanding persistent Qualified Code(s): I48.11 - Longstanding persistent atrial fibrillation Code(s): I48.91 - Unspecified atrial fibrillation Status: Acute Assessment and Plan: [id number] score: 5 (for age, gender, CHF history, HTN and DM history.) - Telemetry monitoring: chronic afib rate controlled. Not on AV node blockade medication. - Cardiology consulted and appreciate recommendations. - Pt. has had repeated falls and is not a good candidate for anticoagulation due to high risk for major bleeding. 03/14/22 Unchanged. Stable (3) Abnormal chest xray: Code(s): R93.89 - Abnormal findings on diagnostic imaging of other specified body structures Status: Acute Assessment and Plan: Imaging demonstrated Atelectasis versus pneumonia with small pleural effusions. Pt. received a dose of Lasix in ER. He does not appear to be volume overloaded on exam. Appears euvolemic 03/13/22 Repeat CXR 03/13 unchanged. WBC 11 and lactic acid 2.3. Start empiric levaquin 750 mg PO daily x5 days for presumed pneumonia. Added incentive spirometry. MRSA nasal swab r/o colonization and risk for MRSA pneumonia. Patient <48 hours hospital stay. Repeat lactic acid 1.3. 03/14/22 Day 2 empiric antibiotic. WBC normalized. 03/15/2022 Patient demonstrated possible aspiration in modified barium swallow. Patient has received 3 of 5 doses of Levaquin. (4) Urinary retention: Code(s): R33.9 - Retention of urine, unspecified Status: Acute Assessment and Plan: 03/12/22 H/O BPH. Patient unable to void. Proscar resumed 03/11/22. Bladder scan >250 mL, but not documented by nursing. Salamanca catheter inserted and nursing reports some blood-tinge and poor floor. -03/13/22 hematuria noted. UA 3+ blood. Catheter with poor flow per nursing and no return following catheter flush. Urology consulted. Cystoscopy done. Difficult catheter insertion (see Urology notes). Recommend keeping salamanca x 5 days, then consider voiding trial. 03/14/22 Salamanca patient. Small pink-tinged urine. H/H stable. 03/15/2022 urology recommended keeping the Salamanca for approximately 5 days and attempting a voiding trial (5) History of recent fall: Code(s): Z91.81 - History of falling Status: Acute Assessment and Plan: Large facial hematoma on orbit of left eye with tenderness, bruising of various stages and mild edema on admission 03/11/22 CT without fractures. - Fall Precautions. - PT/OT consulted. (6)
[2022-03-16 06:48] LABS: Basophils Percent Auto 0.3 % (0.2-1.2); Hematocrit 42.5 % (42.0-52.0); Hemoglobin 13.3 g/dL (14.0-18.0); Immature Granulocyte Absolute 0.06 K/mm3 (0.00-0.031); Immature Granulocyte Percent A 0.8 % (0-0.5); Lymphocytes Absolute Auto 0.49 K/mm3 (0.9-3.2); Lymphocytes Percent Auto 6.5 % (18.3-44.2); Mean Corpuscular HGB Conc 31.3 g/dl (32-36); Mean Corpuscular Hemoglobin 27.8 pg (26-34); Mean Corpuscular Volume 88.7 fl (80-100); Mean Platelet Volume 10.2 fl (7.4-10.4); Monocytes Absolute Auto 0.8 K/mm3 (0.1-0.6); Monocytes Percent Auto 10.5 % (2.6-8.5); Neutrophils Absolute Auto 6.1 K/mm3 (1.3-6.7); Neutrophils Percent Auto 81.9 % (45.5-73.1); Platelet Count Result 179 k/mm3 (150-375); Red Blood Count 4.79 M/mm3 (4.6-6.20); Red Cell Distribution Width 17.3 % (11.5-14.5); White Blood Count 7.5 K/mm3 (4.5-10.0)
[2022-03-16 07:16] LABS: Alanine Aminotransferase 19 U/L (6-50); Alkaline Phosphatase 71 U/L (38-126); Anion Gap 11 mmol/L (8-16); Aspartate Amino Transferase 24 U/L (17-59); Bilirubin,Total 0.6 mg/dL (0.2-1.3); Blood Urea Nitrogen 26 mg/dL (9-20); Calcium 9.3 mg/dL (8.4-10.2); Carbon Dioxide 27 mmol/L (22-30); Chloride 101 mmol/L (98-107); Estimated CRCL calculation 53 ml/min; Estimated Glomerular Filt Rate 58; Glucose 75 mg/dL (65-110); Potassium 3.5 mmol/L (3.4-5.0); Sodium 139 mmol/L (137-145)
[2022-03-16 07:45] LABS: Glucose Point of Care 76 mg/dl (65-105)
[2022-03-16] MEDS: ASPIRIN 81 MG CHEWABLE TABLET 324 MG PO (07:59)
[2022-03-16] MEDS: FUROSEMIDE 40 MG TABLET PO (08:00)
[2022-03-16] MEDS: LIDOCAINE 5% PATCH 1 PATCH TRANSDERM (08:00)
[2022-03-16] MEDS: lisinopriL 20 MG TABLET PO (08:00)
[2022-03-16] MEDS: ATORVASTATIN 10 MG TABLET PO (08:00)
[2022-03-16] MEDS: HEPARIN SODIUM 5,000 UNITS/ML VIAL 5000 UNITS SUB-Q (08:00)
[2022-03-16] MEDS: FINASTERIDE 5 MG TABLET PO (08:00)
[2022-03-16] MEDS: traMADol HCL (*CRX) 50 MG TABLET PO (08:00)
[2022-03-16] MEDS: ESCITALOPRAM OXALATE 10 MG TABLET PO (08:00)
[2022-03-16] MEDS: levoFLOXacin 750 MG TABLET PO (08:00)
[2022-03-16] MEDS: PANTOPRAZOLE SODIUM IV 40 MG VIAL IV PUSH (08:01)
[2022-03-16 09:30] LABS: Methylmalonic Acid 222 nmol/L (87-318)
[2022-03-16 11:38] LABS: Glucose Point of Care 80 mg/dl (65-105)
[2022-03-16 14:00] VITALS: BP 173/87; PULSE 91; RESP 18; TEMP 35.9; O2SAT 92
[2022-03-16 16:37] LABS: Glucose Point of Care 81 mg/dl (65-105)
[2022-03-16 17:22] VITALS: O2SAT 96
[2022-03-16 21:57] LABS: Homocysteine 16.7 umol/L (<11.4)
== END 2022-03-16 18:17 | DRG 194 ==
LOC: ANHED 19:41 → ANH2MED 20:16
PROVIDERS: Nurse Practitioner Adult Health; Nurse Practitioner Family; Physician Assistant; Admitting Provider Family Medicine; Emergency Provider Emergency Medicine; PCP Internal Medicine; Visit Provider Nurse Practitioner Family
DX: J18.9 Pneumonia, unspecified organism (principal); I48.11 Longstanding persistent atrial fibrillation; I13.0 Hypertensive heart and chronic kidney disease with heart failure and stage 1 through stage 4 chronic kidney disease, or unspecified chronic kidney disease; R47.01 Aphasia; G81.91 Hemiplegia, unspecified affecting right dominant side; R47.1 Dysarthria and anarthria; R41.82 Altered mental status, unspecified; N36.5 Urethral false passage; T83.021A Displacement of indwelling urethral catheter, initial encounter; Z20.822 Contact with and (suspected) exposure to COVID-19; E78.5 Hyperlipidemia, unspecified; E11.59 Type 2 diabetes mellitus with other circulatory complications; E11.42 Type 2 diabetes mellitus with diabetic polyneuropathy; E11.22 Type 2 diabetes mellitus with diabetic chronic kidney disease; I50.9 Heart failure, unspecified; I15.2 Hypertension secondary to endocrine disorders; K21.9 Gastro-esophageal reflux disease without esophagitis; M16.0 Bilateral primary osteoarthritis of hip; M19.012 Primary osteoarthritis, left shoulder; N18.30 Chronic kidney disease, stage 3 unspecified; N40.1 Benign prostatic hyperplasia with lower urinary tract symptoms; N32.89 Other specified disorders of bladder; R33.8 Other retention of urine; R31.0 Gross hematuria; R93.89 Abnormal findings on diagnostic imaging of other specified body structures; S05.12XD Contusion of eyeball and orbital tissues, left eye, subsequent encounter; Z91.81 History of falling; Z87.442 Personal history of urinary calculi; Z85.828 Personal history of other malignant neoplasm of skin; Z96.652 Presence of left artificial knee joint; Z90.49 Acquired absence of other specified parts of digestive tract; Z90.79 Acquired absence of other genital organ(s); Z87.891 Personal history of nicotine dependence; Z79.82 Long term (current) use of aspirin; Z66 Do not resuscitate
CPT/HCPCS: 36415; 36600; 70450; 70496; 70498; 71045; 71046; 73030; 80048; 80053; 81001; 82140; 82607; 82746; 82805; 82948; 83036; 83090; 83605; 83735; 83880; 83921; 84145; 84443; 85025; 85610; 85730; 87081; 87086; 92507; 92523; 92610; 92611; 93005; 93306; 96374; 96375; 97110; 97161; 97166; 97530; 97535; 99285; A9270; C9113; C9803; G0378; J0360; J1644; J1940; Q9967; U0003; U0005

== ENCOUNTER 2022-04-01 07:03 | Emergency (ER) | payer MEDICARE, SELFPAY ==
--- NOTE | ~2022-04-01 | CT_ITS ---
EXAMINATION: CT abdomen pelvis w con INDICATION: Hematuria TECHNIQUE: Computed tomographic images of the abdomen and pelvis were obtained after the administrati on of 100 cc of Omnipaque 350 intravenous contrast. The dose-length product (DLP) was 1489.00 mGy-cm. Automated exposure control and iterative reconstruction technique were employed. COMPARISON: 07/07/2021 FINDINGS: There are small pleural effusions, right greater than left. The heart size is normal. Calci fied coronary artery atherosclerosis is noted. The gallbladder is surgically absent. Multiple splenic lesions are again seen which measure up to 3.6 cm and evident previously characterized as probable o ld granulomatous disease. The liver, pancreas, and adrenal glands are normal. There is a 4.3 cm cyst of the right kidney. There is moderate atrophy of the left kidney. There are multiple diverticula of the urinary bladder. Nondependent intraluminal gas is noted in the urinary bladder. The Millan cathete r is in the urethra. There are fat-containing inguinal hernias, right greater than left. Colonic dive rticulosis is present without evidence of diverticulitis. No pathologically enlarged abdominal or pel ishmael lymph nodes are identified. There is no free intraperitoneal gas or evidence of bowel obstruction . There is calcified atherosclerosis of the aorta and many of the other arteries. There is severe lum bar spondylosis. There is advanced left and moderate right hip osteoarthritis. IMPRESSION: 1. Millan catheter in the urethra. Repositioning is recommended. Small amount of intraluminal gas in t he urinary bladder likely relates to catheterization. Reviewed, dictated and finalized at location A. IMPRESSION: 1. Millan catheter in the urethra. Repositioning is recommended. Small amount of intraluminal gas in the urinary bladder likely relates to catheterization.
[2022-04-01 07:07] VITALS: BP 135/107; PULSE 86; RESP 18; TEMP 36.6; O2SAT 98
[2022-04-01 07:47] LABS: Appearance Urine Slightly Cloudy (Clear); Bilirubin Urine Negative (Negative); Blood Urine 3+ (Negative); Color Urine Yellow (Yellow); Glucose Urine UA Negative (Negative); Ketones Urine Negative (Negative); Leukocyte Esterase Ur 2+ LEU/UL (Negative); Nitrate Urine Negative (Negative); Protein Urine 1+ mg/dL (Negative); Specific Grav Ur 1.015 (1.001-1.035); Urobilinogen Urine 0.2 mg/dL (<2.0)
--- NOTE | 2022-04-01 07:48 | ED.MALEGU ---
HPI - Male Genitourinary General Chief complaint: Urogenital-Male Stated complaint: BLOOD IN URINE AND GROIN PAIN Time Seen by Provider: 04/01/22 07:10 History of Present Illness HPI Narrative: This is an 81-year-old male with past medical history of Naeem ryan on aspirin, who presents to the emergency department with blood in urine. He states he has had a Millan catheter in place for the past month for reasons unknown to him. Will last couple of days he is noted blood in his catheter and on the sheets from an unknown source. He denies associated lightheadedness, chest pain or shortness of breath. His [facility] sent him today for blood in his catheter. EMS reports normal vital signs in route Bubba. connor on the monitor with rate in the 80s. Related Data Home Medications Medication Instructions Recorded Confirmed niacin 500 mg tablet 500 mg PO DAILY 05/04/21 03/11/22 aspirin 81 mg tablet,delayed 81 mg PO DAILY 09/24/21 03/11/22 release finasteride 5 mg tablet 5 mg PO DAILY 09/24/21 03/11/22 furosemide 40 mg tablet 40 mg PO DAILY 09/24/21 03/11/22 lisinopril 20 mg tablet 20 mg PO DAILY 09/24/21 03/11/22 ibuprofen 400 mg tablet 400 mg PO Q8H PRN Pain (Scale 02/12/22 03/11/22 Score 1-3) tramadol 50 mg tablet 1 tablet PO Q12H 02/12/22 03/11/22 ergocalciferol (vitamin D2) 1 cap PO WEEKLY 03/11/22 03/11/22 escitalopram oxalate 10 mg tablet 10 mg PO DAILY 03/11/22 03/11/22 omega 6-qpn-abk-fish oil 60 mg-90 500 cap PO DAILY 03/11/22 03/11/22 mg-500 mg capsule (Fish Oil) doxycycline hyclate 100 mg capsule mg 04/01/22 Allergies Allergy/AdvReac Type Severity Reaction Status Date / Time No Known Allergies Allergy Verified 04/01/22 07:31 Review of Systems Review of Systems: CONSTITUTIONAL: Denies fever, chills, or sweats. EYES: Denies visual changes, redness, or discharge. ENT: Denies rhinorrhea, congestion, sore throat, or otalgia. CARDIOVASCULAR: Denies chest pain, palpitations, or edema. RESPIRATORY: Denies cough or dyspnea. GASTROINTESTINAL: Denies abdominal pain, nausea, vomiting, or diarrhea. GENITOURINARY: +hematuria Denies dysuria SKIN: Denies rash or itching. MUSCULOSKELETAL: Denies back pain, joint pain, or myalgia. NEUROLOGIC: Denies headache, numbness, dizziness, or weakness. PSYCHIATRIC: Denies anxiety or depression. [facility] Past Medical History Medical History (Updated 04/01/22 @ 12:22 by Gurinder Jacques MD) Actinic keratosis Benign prostatic hyperplasia Bilateral primary osteoarthritis of hip (~06/2021) Bladder stones Chronic kidney disease, stage 3 Baseline creatinine ranges between 1.40 and 1.60. 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 Urinary retention with incomplete bladder emptying Wears glasses Surgical History Surgical History History of arthroplasty of left knee History of arthroscopy of both knees History of colonoscopy with polypectomy History of cystoscopy History of laparoscopic cholecystectomy (2013) History of lithotripsy History of nasal septoplasty (2006) With bilateral inferior turbinectomy. History of transurethral resection of prostate History of ventral hernia repair (2005) Status post excision of lipoma Anterior abdominal wall. Status post hammertoe correction OR as OP on Rt. 2nd and 5th MCP joints approx. 2017 Family History Family History Father Acute myocardial infarction Mother Breast cancer Hypertension Sibling Leukemia Sibling Lung cancer Other Arthritis Social History Social History Social History: Surrogate decision maker: Kishore Koroma Jr, son. Code status: Full code.
[2022-04-01 07:49] LABS: Basophils Percent Auto 0.4 % (0.2-1.2); Eosinophils Absolute Auto 0.1 K/mm3 (0-0.3); Eosinophils Percent Auto 0.8 % (0-4.4); Hematocrit 43.1 % (42.0-52.0); Hemoglobin 12.9 g/dL (14.0-18.0); Immature Granulocyte Absolute 0.08 K/mm3 (0.00-0.031); Immature Granulocyte Percent A 0.8 % (0-0.5); Lymphocytes Absolute Auto 0.67 K/mm3 (0.9-3.2); Lymphocytes Percent Auto 6.6 % (18.3-44.2); Mean Corpuscular HGB Conc 29.9 g/dl (32-36); Mean Corpuscular Hemoglobin 26.7 pg (26-34); Mean Corpuscular Volume 89.2 fl (80-100); Mean Platelet Volume 10.6 fl (7.4-10.4); Monocytes Absolute Auto 0.8 K/mm3 (0.1-0.6); Monocytes Percent Auto 7.8 % (2.6-8.5); Neutrophils Absolute Auto 8.4 K/mm3 (1.3-6.7); Neutrophils Percent Auto 83.6 % (45.5-73.1); Platelet Count Result 284 k/mm3 (150-375); Red Blood Count 4.83 M/mm3 (4.6-6.20); Red Cell Distribution Width 17.7 % (11.5-14.5); White Blood Count 10.1 K/mm3 (4.5-10.0)
[2022-04-01 07:58] LABS: Alanine Aminotransferase 14 U/L (6-50); Albumin Level 3.3 g/dL (3.5-5.1); Alkaline Phosphatase 88 U/L (38-126); Anion Gap 6 mmol/L (8-16); Aspartate Amino Transferase 21 U/L (17-59); Bilirubin,Total 0.4 mg/dL (0.2-1.3); Blood Urea Nitrogen 24 mg/dL (9-20); Calcium 9.7 mg/dL (8.4-10.2); Carbon Dioxide 30 mmol/L (22-30); Chloride 103 mmol/L (98-107); Estimated Glomerular Filt Rate > 60; Glucose 88 mg/dL (65-110); Potassium 4.1 mmol/L (3.4-5.0); RBC Urine >75 /hpf (0-2); Sodium 139 mmol/L (137-145); WBC Urine 51-75 /hpf
[2022-04-01 07:59] LABS: Add Urine Microscopic? YES
[2022-04-01 08:04] LABS: INR 1.1; Partial Thromboplastin Time 28.6 SECONDS (22.3-36.8); Prothrombin Time 13.6 Seconds (11.1-14.7)
[2022-04-01 08:13] LABS: Platelet Estimate Adequate (Adequate)
[2022-04-01 09:57] VITALS: BP 233/164; PULSE 81; TEMP 35.7; O2SAT 96
--- NOTE | 2022-04-01 12:09 | WPDURCON ---
Assessment and Plan Assessment and plan (1) Gross hematuria: Code(s): R31.0 - Gross hematuria Status: Acute Assessment and Plan: likely due to salamanca malposition. it was replaced by me cystoscopically with 20 cc in balloon. (2) Complication of [place] catheter: Code(s): T83.9XXA - Unspecified complication of genitourinary prosthetic device, implant and graft, initial encounter Status: Acute Assessment and Plan: 18 fr hopi placed needs to stay for at least 1 week to allow for urethral healing. Followup at [place] for cath removal and void trial, call office to schedule appt. (3) Urinary retention: Code(s): R33.9 - Retention of urine, unspecified Status: Acute Urology Consult Note HPI Date Seen: 04/01/22 Primary Care Provider: Agustin Singh DO Consult Narrative Narrative: Kishore Koroma Sr. is a 81 year old male with GH after salamanca catheter dislodgement. He has known false passage and had to have cystoscopy placement of salamanca by Dr Hubbard 02/2022. He noticed pain and GH with clots today. No fevers chills. CT shows salamanca in bulbous urethra. Nursing attempted to deflate balloon and advance but catheter would not go. Review of Systems Review of Systems: CONSTITUTIONAL: Denies fever, chills, or sweats. EYES: Denies visual changes, redness, or discharge. ENT: Denies rhinorrhea, congestion, sore throat, or otalgia. CARDIOVASCULAR: Denies chest pain, palpitations, or edema. RESPIRATORY: Denies cough or dyspnea. GASTROINTESTINAL: Denies abdominal pain, nausea, vomiting, or diarrhea. GENITOURINARY: +hematuria Denies dysuria SKIN: Denies rash or itching. MUSCULOSKELETAL: Denies back pain, joint pain, or myalgia. NEUROLOGIC: Denies headache, numbness, dizziness, or weakness. PSYCHIATRIC: Denies anxiety or depression. [facility] Past Medical History Medical History (Updated 03/14/22 @ 10:57 by Bridget Rm, ALISSA) Actinic keratosis Benign prostatic hyperplasia Bilateral primary osteoarthritis of hip (~06/2021) Bladder stones Chronic kidney disease, stage 3 Baseline creatinine ranges between 1.40 and 1.60. 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 Urinary retention with incomplete bladder emptying Wears glasses Surgical History Surgical History History of arthroplasty of left knee History of arthroscopy of both knees History of colonoscopy with polypectomy History of cystoscopy History of laparoscopic cholecystectomy (2013) History of lithotripsy History of nasal septoplasty (2006) With bilateral inferior turbinectomy. History of transurethral resection of prostate History of ventral hernia repair (2005) Status post excision of lipoma Anterior abdominal wall. Status post hammertoe correction OR as OP on Rt. 2nd and 5th MCP joints approx. 2017 Family History Family History Father Acute myocardial infarction Mother Breast cancer Hypertension Sibling Leukemia Sibling Lung cancer Other Arthritis Social History Social History Social History: Surrogate decision maker: Kishore Puckettntyrkerry Griffiths, son. Code status: Full code. Smoking status: Former smoker Tobacco type: cigarettes Second hand tobacco smoke exposure: Yes Alcohol intake: unknown Substance use: unknown Substance use type: does not use Additional living arrangements comments: The patient lives in his own home in [place] though he is currently at [facility] for rehab. 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 He enjoys fixing things, and his friends and neighbors bring their law
--- NOTE | 2022-04-01 12:14 | PM.OP ---
Procedure Note - Brief Procedure Note - Brief Date of procedure: 04/01/22 Pre-op diagnosis: BLOOD IN URINE AND GROIN PAIN malpositioned salamanca, false passage Procedure performed: cystoscopy and placement of complex salamanca over wire Description of procedure: Penis was prepped and draped in sterile fashion with betadine. 2 % viscous lidocaine used for urethral anesthesia. 16 Fr flexible cystoscopy was performed. bulbous urethra with false passage and clot present, I was able to navigate scope into bladder lumen which view was limited due to blood and catheter cystitis. Bentson wire placed and 18 Fr Councill tipped salamanca placed. 20 cc of sterile water placed in balloon, 300 cc clear yellow urine returned. Cath secured with stat lock. Surgeon: Asad Albert MD
[2022-04-01 12:37] VITALS: BP 173/93; PULSE 80; RESP 20; O2SAT 99
--- NOTE | 2022-04-01 12:44 | PC.NURSE ---
Many attempts made to call report to [facility] assisted living, without success.
== END 2022-04-01 14:05 ==
PROVIDERS: Emergency Provider Preventive Medicine Aerospace Medicine; PCP Internal Medicine
DX: T83.098A Other mechanical complication of other urinary catheter, initial encounter (principal); R33.9 Retention of urine, unspecified; R31.0 Gross hematuria; N36.5 Urethral false passage; T83.511A Infection and inflammatory reaction due to indwelling urethral catheter, initial encounter; I48.91 Unspecified atrial fibrillation; N40.0 Benign prostatic hyperplasia without lower urinary tract symptoms; E11.22 Type 2 diabetes mellitus with diabetic chronic kidney disease; I12.9 Hypertensive chronic kidney disease with stage 1 through stage 4 chronic kidney disease, or unspecified chronic kidney disease; N18.30 Chronic kidney disease, stage 3 unspecified; M16.0 Bilateral primary osteoarthritis of hip; K21.9 Gastro-esophageal reflux disease without esophagitis; Z96.652 Presence of left artificial knee joint; Z87.442 Personal history of urinary calculi; Z86.010 Personal history of colon polyps; Z85.828 Personal history of other malignant neoplasm of skin; Z90.79 Acquired absence of other genital organ(s); Z87.891 Personal history of nicotine dependence; Y84.6 Urinary catheterization as the cause of abnormal reaction of the patient, or of later complication, without mention of misadventure at the time of the procedure; Z79.82 Long term (current) use of aspirin
CPT/HCPCS: 36415; 51702; 52000; 52005; 74177; 80053; 81001; 85025; 85610; 85730; 87086; 99284; J7030; Q9967

== ENCOUNTER 2022-05-15 09:27 | Emergency (ER) | payer MEDICARE, SELFPAY ==
[2022-05-15 09:33] VITALS: BP 143/103; PULSE 72; RESP 19; TEMP 36.4; O2SAT 98
[2022-05-15 09:53] LABS: Basophils Percent Auto 0.3 % (0.2-1.2); Eosinophils Absolute Auto 0.1 K/mm3 (0-0.3); Hematocrit 42.2 % (42.0-52.0); Hemoglobin 12.5 g/dL (14.0-18.0); Immature Granulocyte Absolute 0.04 K/mm3 (0.00-0.031); Immature Granulocyte Percent A 0.7 % (0-0.5); Lymphocytes Absolute Auto 0.71 K/mm3 (0.9-3.2); Lymphocytes Percent Auto 11.6 % (18.3-44.2); Mean Corpuscular HGB Conc 29.6 g/dl (32-36); Mean Corpuscular Hemoglobin 26.8 pg (26-34); Mean Corpuscular Volume 90.6 fl (80-100); Mean Platelet Volume 10.2 fl (7.4-10.4); Monocytes Absolute Auto 0.6 K/mm3 (0.1-0.6); Monocytes Percent Auto 9.3 % (2.6-8.5); Neutrophils Absolute Auto 4.7 K/mm3 (1.3-6.7); Neutrophils Percent Auto 77.1 % (45.5-73.1); Platelet Count Result 260 k/mm3 (150-375); Red Blood Count 4.66 M/mm3 (4.6-6.20); Red Cell Distribution Width 17.8 % (11.5-14.5); White Blood Count 6.1 K/mm3 (4.5-10.0)
[2022-05-15 10:03] LABS: Alanine Aminotransferase 18 U/L (6-50); Albumin Level 3.2 g/dL (3.5-5.1); Alkaline Phosphatase 89 U/L (38-126); Anion Gap 9 mmol/L (8-16); Aspartate Amino Transferase 15 U/L (17-59); Bilirubin,Total 0.4 mg/dL (0.2-1.3); Blood Urea Nitrogen 41 mg/dL (9-20); Calcium 9.1 mg/dL (8.4-10.2); Carbon Dioxide 27 mmol/L (22-30); Chloride 104 mmol/L (98-107); Estimated Glomerular Filt Rate 58; Glucose 110 mg/dL (65-110); Potassium 4.1 mmol/L (3.4-5.0); Sodium 140 mmol/L (137-145)
[2022-05-15] MEDS: FUROSEMIDE 20 MG TABLET 40 MG PO (10:12)
[2022-05-15] MEDS: FINASTERIDE 5 MG TABLET PO (10:12)
--- NOTE | 2022-05-15 10:14 | ED.GENADULT ---
HPI - General Adult General Chief complaint: Recheck/Abnormal Lab/Rx Stated complaint: given wrong medications History of Present Illness HPI narrative: Pt was accidentally given his neighbor's medications both last night and today and not his. Pt has no symptoms but just wanted to get checked out to be safe. meds taken by accident buspar, citaloprim, aricept and quetiapine. pt missed doses of proscar, lisinopril and lasix Related Data Home Medications Medication Instructions Recorded Confirmed niacin 500 mg tablet 500 mg PO DAILY 05/04/21 03/11/22 aspirin 81 mg tablet,delayed 81 mg PO DAILY 09/24/21 03/11/22 release finasteride 5 mg tablet 5 mg PO DAILY 09/24/21 03/11/22 furosemide 40 mg tablet 40 mg PO DAILY 09/24/21 03/11/22 lisinopril 20 mg tablet 20 mg PO DAILY 09/24/21 03/11/22 ibuprofen 400 mg tablet 400 mg PO Q8H PRN Pain (Scale 02/12/22 03/11/22 Score 1-3) tramadol 50 mg tablet 1 tablet PO Q12H 02/12/22 03/11/22 ergocalciferol (vitamin D2) 1 cap PO WEEKLY 03/11/22 03/11/22 escitalopram oxalate 10 mg tablet 10 mg PO DAILY 03/11/22 03/11/22 omega 6-lbc-bbl-fish oil 60 mg-90 500 cap PO DAILY 03/11/22 03/11/22 mg-500 mg capsule (Fish Oil) doxycycline hyclate 100 mg capsule mg 04/01/22 Allergies Allergy/AdvReac Type Severity Reaction Status Date / Time No Known Allergies Allergy Verified 04/01/22 07:31 Review of Systems Review of Systems: All systems reviewed & are unremarkable except as noted in HPI and below [facility] Past Medical History Medical History (Updated 05/15/22 @ 10:22 by Elizabeth Sheldon III, DO) Actinic keratosis Benign prostatic hyperplasia Bilateral primary osteoarthritis of hip (~06/2021) Bladder stones Chronic kidney disease, stage 3 Baseline creatinine ranges between 1.40 and 1.60. 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 Urinary retention with incomplete bladder emptying Wears glasses Surgical History Surgical History History of arthroplasty of left knee History of arthroscopy of both knees History of colonoscopy with polypectomy History of cystoscopy History of laparoscopic cholecystectomy (2013) History of lithotripsy History of nasal septoplasty (2006) With bilateral inferior turbinectomy. History of transurethral resection of prostate History of ventral hernia repair (2005) Status post excision of lipoma Anterior abdominal wall. Status post hammertoe correction OR as OP on Rt. 2nd and 5th MCP joints approx. 2017 Family History Family History Father Acute myocardial infarction Mother Breast cancer Hypertension Sibling Leukemia Sibling Lung cancer Other Arthritis Social History Social History Social History: Surrogate decision maker: Kishore Koroma Jr, son. Code status: Full code. Smoking status: Former smoker Tobacco type: cigarettes Second hand tobacco smoke exposure: Yes Alcohol intake: unknown Substance use: unknown Substance use type: does not use Additional living arrangements comments: The patient lives in his own home in [place] though he is currently at [facility] for rehab. 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 He enjoys fixing things, and his friends and neighbors bring their lawn mowers over frequently for him to repair. Additional occupation/education comments: Retired. Gender identity (if verbalized by the patient): Male Spiritual care concerns: No Exam Const: General: healthy appearing and no acute distress Nutritional Appearance: well nourished Orientation/consciousness: patient oriented x3 Li
[2022-05-15 10:21] LABS: Hypochromasia 1+ (NORMAL); Platelet Estimate Adequate (Adequate); Schistocytes None Seen (NORMAL)
[2022-05-15 10:50] VITALS: BP 150/77; PULSE 76; RESP 18; O2SAT 98
== END 2022-05-15 10:51 ==
PROVIDERS: Emergency Provider Emergency Medicine; PCP Internal Medicine
DX: T43.591A Poisoning by other antipsychotics and neuroleptics, accidental (unintentional), initial encounter (principal); T43.221A Poisoning by selective serotonin reuptake inhibitors, accidental (unintentional), initial encounter; T44.1X1A Poisoning by other parasympathomimetics [cholinergics], accidental (unintentional), initial encounter; I12.9 Hypertensive chronic kidney disease with stage 1 through stage 4 chronic kidney disease, or unspecified chronic kidney disease; E11.22 Type 2 diabetes mellitus with diabetic chronic kidney disease; N18.30 Chronic kidney disease, stage 3 unspecified; E78.5 Hyperlipidemia, unspecified; N40.1 Benign prostatic hyperplasia with lower urinary tract symptoms; R33.8 Other retention of urine; M19.012 Primary osteoarthritis, left shoulder; M16.0 Bilateral primary osteoarthritis of hip; K21.9 Gastro-esophageal reflux disease without esophagitis; Z90.79 Acquired absence of other genital organ(s); Z96.652 Presence of left artificial knee joint; Z85.828 Personal history of other malignant neoplasm of skin; Z86.010 Personal history of colon polyps; Z87.891 Personal history of nicotine dependence; Z79.82 Long term (current) use of aspirin
CPT/HCPCS: 36415; 80053; 85025; 99283; A9270

== ENCOUNTER 2022-05-27 12:16 | Outpatient (CLI) | payer MEDICARE, SELFPAY ==
[2022-05-27 13:11] LABS: Hemoglobin A1C 6.4 % (<5.7)
[2022-05-27 16:24] LABS: Alanine Aminotransferase 22 U/L (6-50); Albumin Level 3.6 g/dL (3.5-5.1); Alkaline Phosphatase 96 U/L (38-126); Anion Gap 11 mmol/L (8-16); Aspartate Amino Transferase 24 U/L (17-59); Bilirubin,Total 0.4 mg/dL (0.2-1.3); Blood Urea Nitrogen 41 mg/dL (9-20); Calcium 9.5 mg/dL (8.4-10.2); Carbon Dioxide 32 mmol/L (22-30); Chloride 99 mmol/L (98-107); Cholesterol 134 mg/dL (0-200); Estimated Glomerular Filt Rate > 60; Glucose 76 mg/dL (65-110); HDL Direct 37 mg/dL; Potassium 4.1 mmol/L (3.4-5.0); Sodium 142 mmol/L (137-145); Triglycerides 99 mg/dL (<150)
[2022-05-27 16:35] LABS: LDL Cholesterol Direct 69 mg/dL
== END 2022-05-27 12:17 | disposition home or self-care (01) ==
PROVIDERS: PCP Internal Medicine; Visit Provider Internal Medicine
DX: E78.5 Hyperlipidemia, unspecified (principal); E11.9 Type 2 diabetes mellitus without complications
CPT/HCPCS: 36415; 80053; 80061; 83036

== ENCOUNTER 2022-08-30 07:58 | Outpatient (RCR) | payer MEDICARE, SELFPAY ==
--- NOTE | 2022-08-30 10:44 | PTOPEVAL1 ---
Assessment and note entered by Meche Hernandez, PT, CLT Evaluation Information Assessment Status Evaluation Diagnosis lymphedema B LE's, unsteady gait Onset about 1 year Subjective Information discussed with pt and his son that his order has 2 diagnosis'- they want to start therapy and address the lymphedema of legs, which is their main concern at this time; They report transportation to therapy is an issue- -son works and cannot bring him in 2x/wk; discussed option of [facility], assisted living facility bus; they will have to check for transportation before they can make appointments. Reported Pain Level Pain Score 5: Self Report Additional Pain Score Comments arthritis L hip, to see ortho dr about it Assessment PT Clinical Summary Kishore has diagnosis' of LE lymphdema and weakness /gait imbalance. His son was present during the eval and supportive to pt. He resides at assisted living facility and requires assist with mobility and self care tasks. With the evaluation, he has weeping from both lower legs, with red, macerated skin. He is wearing compression calf high garments that hold the weeping and his skin is staying wet. He has weakness in both legs, L weaker than R, with decreased sit/stand, supine/sit and gait is limited to ~ 50' with walker and poor gait pattern Skilled PT services are indicated for lymphedema care/treatment, therapeutic exercises and activities to increase LE strength, gait, transfer and mobility skills. Transportation is an issue and he was recently put on blood thinner, due to blood clot and having a cardiac procedure scheduled on Sep 22. Plan of Care Interventions Gait Training,Manual Lymph Drainage,Patient/ Caregiver Education,Therapeutic Activities, Therapeutic Exercise PT Services Indicated Yes Treatment Frequency and 1-2x/wk for 6 weeks Duration These treatments will address the objective and functional deficits as defined above. The patient will be advanced safely and appropriately in order for the patient to progress towards his/her prior level of function. Additional exercises will be introduced and as well as a comprehensive home exercise program upon discharge, if needed, ?to ensure carryover of functional gains achieved in the clinic. This treatment plan has been reviewed and agreement upon by the patient.
--- NOTE | 2022-11-10 15:17 | PCPTNOTE ---
PHYSICAL THERAPY DISCHARGE 11-10-22 Attending Provider: Agustin Singh DO Patient:Kishore Koroma Sr. Date of :1940 Kishore has not returned for any further treatments since the initial PT evaluation on 08/30/2022, therefore he will be discharged at this time. The goals were not addressed. Thank you for referring this patient to [facility].
== END 2022-11-13 08:43 | disposition home or self-care (01) ==
LOC: ANHPT 07:58
PROVIDERS: PCP Internal Medicine; Visit Provider Internal Medicine
DX: I89.0 Lymphedema, not elsewhere classified (principal); R26.81 Unsteadiness on feet
CPT/HCPCS: 97162

== ENCOUNTER 2022-10-09 07:38 | Emergency (ER) | payer MEDICARE, SELFPAY ==
[2022-10-09] VITALS (21 sets, daily range): BP systolic 139–172; BP diastolic 73–98; PULSE 69–92; RESP 17–32; TEMP 36.3; O2SAT 88–99
--- NOTE | ~2022-10-09 | CT_ITS ---
EXAMINATION: CT brain wo con DATE: 10/09/2022 08:15 INDICATION: Head injury TECHNIQUE: Computed tomography (CT) of the head was performed without intravenous contrast. Sagittal and coronal reconstructions were performed. The mA was adjusted according to patient size. Iterative reconstruction technique was employed. The dose-length product was 681.00 mGy-cm. COMPARISON: head CT dated 03/11/2022 FINDINGS: Large left frontal scalp hematoma. No fracture. No acute intracranial hemorrhage, acute infarction or abnormal extra axial fluid collection. There is mild scattered white matter hypoattenuation consiste nt with chronic small vessel ischemic disease. Symmetric prominence of the sulci consistent with mild age-appropriate diffuse cerebral volume loss. Ventricles are normal and symmetric. No mass/mass effe ct. Automated exposure control and iterative reconstruction technique were employed. The orbits and m astoid air cells are normal. Mild mucosal thickening bilateral ethmoid sinuses. Intracranial calcifie d cerebral atherosclerosis is noted. IMPRESSION: 1. No fracture or acute intracranial process. 2. Age-related changes including mild diffuse volume loss and mild scattered white matter hypoattenua tion consistent with chronic small vessel ischemic disease. Reviewed, dictated and finalized at location A. TOLOGY PHYSICIAN IMPRESSION: 1. No fracture or acute intracranial process. 2. Age-related changes including mild diffuse volume loss and mild scattered wh ite matter hypoattenuation consistent with chronic small vessel ischemic diseas e.
--- NOTE | 2022-10-09 08:19 | ED.FALL ---
HPI - Fall General Chief Complaint: Fall Stated Complaint: fall Time Seen by Provider: 10/09/22 07:51 History of Present Illness HPI Narrative: Patient is an 82-year-old male who presents ER status post fall. He reports he is transferring from his walker to his easy chair when he lost his balance and fell. He struck his head on the ground. Denies loss of consciousness. He does have a hematoma over the supraorbital ridge on the left side. He also suffered a skin tear to the right mitchell. He denies taking any blood thinners or antiplatelets. Chart review does show baby aspirin. No change in vision. No pain in his eyes. Displays no confusion. Related Data Home Medications Medication Instructions Recorded Confirmed niacin 500 mg tablet 500 mg PO DAILY 05/04/21 09/11/22 aspirin 81 mg tablet,delayed 81 mg PO DAILY 09/24/21 09/11/22 release finasteride 5 mg tablet 5 mg PO DAILY 09/24/21 09/11/22 furosemide 40 mg tablet 40 mg PO DAILY 09/24/21 09/11/22 lisinopril 20 mg tablet 20 mg PO DAILY 09/24/21 09/11/22 ibuprofen 400 mg tablet 400 mg PO Q8H PRN Pain (Scale 02/12/22 09/11/22 Score 1-3) ergocalciferol (vitamin D2) 1 cap PO WEEKLY 03/11/22 09/11/22 escitalopram oxalate 10 mg tablet 10 mg PO DAILY 03/11/22 09/11/22 omega 3-jvm-hqy-fish oil 60 mg-90 500 cap PO DAILY 03/11/22 09/11/22 mg-500 mg capsule (Fish Oil) Allergies Allergy/AdvReac Type Severity Reaction Status Date / Time No Known Allergies Allergy Verified 09/11/22 13:08 Review of Systems Review of Systems: All systems reviewed & are unremarkable except as noted in HPI and below Constitutional: Constitutional: Denies chills and Denies fever(s) Eyes: Eyes: Denies change in vision and Denies photophobia ENT: Denies nasal congestion and Denies sore throat Musculoskeletal: Musculoskeletal: Denies myalgias, Denies arthralgias and Denies joint swelling Integumentary/Breasts: Skin/Breast: Denies erythema and Denies rash Comments: Skin tear right mitchell Neurologic: Denies syncope, Denies headache(s), Denies focal weakness and Denies numbness [facility] Past Medical History Medical History Actinic keratosis Benign prostatic hyperplasia Bilateral primary osteoarthritis of hip (~06/2021) Bladder stones Chronic kidney disease, stage 3 Baseline creatinine ranges between 1.40 and 1.60. 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 Urinary retention with incomplete bladder emptying Wears glasses Surgical History Surgical History History of arthroplasty of left knee History of arthroscopy of both knees History of colonoscopy with polypectomy History of cystoscopy History of laparoscopic cholecystectomy (2013) History of lithotripsy History of nasal septoplasty (2006) With bilateral inferior turbinectomy. History of transurethral resection of prostate History of ventral hernia repair (2005) Status post excision of lipoma Anterior abdominal wall. Status post hammertoe correction OR as OP on Rt. 2nd and 5th MCP joints approx. 2017 Family History Family History Father Acute myocardial infarction Mother Breast cancer Hypertension Sibling Leukemia Sibling Lung cancer Other Arthritis Social History Social History Social History: Surrogate decision maker: Kishore Koroma Jr, son. Code status: Full code. Smoking status: Former smoker Tobacco type: cigarettes Second hand tobacco smoke exposure: Yes Alcohol intake: unknown Substance use: unknown Substance use type: does not use Lack of Transportat
[2022-10-09] MEDS: ACETAMINOPHEN 325 MG TABLET 650 MG PO (08:34)
--- NOTE | 2022-10-09 08:47 | PC.NURSE ---
pts son updated. Pt son states he will pick patient up when he is discharged.
--- NOTE | 2022-10-09 11:35 | PC.NURSE ---
pt. son on way to pick and shovel man pt.
== END 2022-10-09 11:30 ==
PROVIDERS: Emergency Provider Emergency Medicine; PCP Internal Medicine
DX: S00.83XA Contusion of other part of head, initial encounter (principal); S81.812A Laceration without foreign body, left lower leg, initial encounter; I12.9 Hypertensive chronic kidney disease with stage 1 through stage 4 chronic kidney disease, or unspecified chronic kidney disease; E11.22 Type 2 diabetes mellitus with diabetic chronic kidney disease; N18.30 Chronic kidney disease, stage 3 unspecified; N40.1 Benign prostatic hyperplasia with lower urinary tract symptoms; R33.8 Other retention of urine; K21.9 Gastro-esophageal reflux disease without esophagitis; M19.012 Primary osteoarthritis, left shoulder; M16.0 Bilateral primary osteoarthritis of hip; Z90.79 Acquired absence of other genital organ(s); Z85.828 Personal history of other malignant neoplasm of skin; Z87.442 Personal history of urinary calculi; Z96.652 Presence of left artificial knee joint; Z87.891 Personal history of nicotine dependence; Z79.82 Long term (current) use of aspirin; W18.39XA Other fall on same level, initial encounter
CPT/HCPCS: 70450; 99284; A9270

== ENCOUNTER 2022-11-08 17:00 | Emergency (ER) | payer MEDICARE, SELFPAY ==
[2022-11-08] VITALS (13 sets, daily range): BP systolic 128–163; BP diastolic 66–90; PULSE 67–88; RESP 14–23; TEMP 36.2–36.6; O2SAT 94–99
--- NOTE | 2022-11-08 17:04 | ED.GENADULT ---
HPI - General Adult General Chief complaint: Wound/Laceration <David Flores PA-C - Last Filed: 11/08/22 19:11> Stated complaint: abcess <David Flores PA-C - Last Filed: 11/08/22 19:11> Time Seen by Provider: 11/08/22 17:03 <David Flores PA-C - Last Filed: 11/08/22 19:11> Source: patient <David Flores PA-C - Last Filed: 11/08/22 19:11> Mode of arrival: EMS <BISI Dennis Last Filed: 11/08/22 19:11> Limitations: no limitations <David Flores PA-C - Last Filed: 11/08/22 19:11> History of Present Illness HPI narrative: This is an 82-year-old male with PMH of A-fib, CHF, CKD who presents to the ED via EMS from intermediate with chief complaint of left shoulder abscess. States it has been open for a couple of days and the nurse was able to express some blood in purulent material out just prior to arrival. He was sent to the ER for evaluation of infection. Patient states that it has been relatively painful but somewhat relieved after the nurse was able to express material out today. Still having some pain in the left shoulder but also has longstanding left shoulder orthopedic problems. Denies fevers, chills, nausea, vomiting, headache, LOC, weakness, abdominal pain, diarrhea. <David Flores PA-C - Last Filed: 11/08/22 19:11> Related Data Home medications: Home Medications Medication Instructions Recorded Confirmed niacin 500 mg tablet 500 mg PO DAILY 05/04/21 09/11/22 aspirin 81 mg tablet,delayed 81 mg PO DAILY 09/24/21 09/11/22 release finasteride 5 mg tablet 5 mg PO DAILY 09/24/21 09/11/22 furosemide 40 mg tablet 40 mg PO DAILY 09/24/21 09/11/22 lisinopril 20 mg tablet 20 mg PO DAILY 09/24/21 09/11/22 ibuprofen 400 mg tablet 400 mg PO Q8H PRN Pain (Scale 06/26/22 01/23/23 Score 1-3) ergocalciferol (vitamin D2) 1 cap PO WEEKLY 03/11/22 09/11/22 escitalopram oxalate 10 mg tablet 10 mg PO DAILY 03/11/22 09/11/22 omega 1-jce-xjm-fish oil 60 mg-90 500 cap PO DAILY 03/11/22 09/11/22 mg-500 mg capsule (Fish Oil) <David Flores PA-C - Last Filed: 11/08/22 19:11> Allergies/adverse reactions: Allergies Allergy/AdvReac Type Severity Reaction Status Date / Time No Known Allergies Allergy Verified 09/11/22 13:08 <David Flores PA-C - Last Filed: 11/08/22 19:11> Review of Systems Review of Systems: CONSTITUTIONAL: Denies fever, chills, or sweats. EYES: Denies visual changes, redness, or discharge. ENT: Denies rhinorrhea, congestion, sore throat, or otalgia. CARDIOVASCULAR: Denies chest pain, palpitations, or edema. RESPIRATORY: Denies cough or dyspnea. GASTROINTESTINAL: Denies abdominal pain, nausea, vomiting, or diarrhea. GENITOURINARY: Denies dysuria or hematuria. SKIN: Endorses redness and drainage in the left shoulder. Denies rash or itching. MUSCULOSKELETAL: Endorses left shoulder pain. Denies back pain, other joint pain, or myalgia. NEUROLOGIC: Denies headache, numbness, dizziness, or weakness. PSYCHIATRIC: Denies anxiety or depression. <David Flores PA-C - Last Filed: 11/08/22 19:11> [facility] Past Medical History Medical History: Medical History Actinic keratosis Benign prostatic hyperplasia Bilateral primary osteoarthritis of hip (~06/2021) Bladder stones Chronic kidney disease, stage 3 Baseline creatinine ranges between 1.40 and 1.60. 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 Urinary retention with incomplete bladder emptying Wears glasses <David Flores PA-C - Last Filed: 11/08/22 19:11> Surgical History Surgical History: Surgical History History of arthroplasty of left knee History of arthrosc
--- NOTE | 2022-11-08 18:39 | PC.NURSE ---
Left voicemail to Pt. son Kishore about coming to filler picker the patient.
== END 2022-11-08 21:06 ==
PROVIDERS: Emergency Provider Physician Assistant; PCP Internal Medicine
DX: L02.414 Cutaneous abscess of left upper limb (principal); S40.012A Contusion of left shoulder, initial encounter; N40.0 Benign prostatic hyperplasia without lower urinary tract symptoms; I12.9 Hypertensive chronic kidney disease with stage 1 through stage 4 chronic kidney disease, or unspecified chronic kidney disease; E11.22 Type 2 diabetes mellitus with diabetic chronic kidney disease; N18.30 Chronic kidney disease, stage 3 unspecified; Z87.442 Personal history of urinary calculi; M19.90 Unspecified osteoarthritis, unspecified site; K21.9 Gastro-esophageal reflux disease without esophagitis
CPT/HCPCS: 99283

== ENCOUNTER 2023-01-11 12:34 | Outpatient (CLI) | payer MEDICARE, SELFPAY ==
[2023-01-11 13:28] LABS: Hemoglobin A1C 5.9 % (<5.7)
[2023-01-11 13:33] LABS: Alanine Aminotransferase 19 U/L (6-50); Albumin Level 3.3 g/dL (3.5-5.1); Alkaline Phosphatase 73 U/L (38-126); Anion Gap 2 mmol/L (8-16); Aspartate Amino Transferase 21 U/L (17-59); Bilirubin,Total 0.5 mg/dL (0.2-1.3); Blood Urea Nitrogen 29 mg/dL (9-20); Calcium 9.2 mg/dL (8.4-10.2); Carbon Dioxide 30 mmol/L (22-30); Chloride 107 mmol/L (98-107); Estimated Glomerular Filt Rate > 60; Glucose 81 mg/dL (65-110); Potassium 4.3 mmol/L (3.4-5.0); Sodium 139 mmol/L (137-145)
== END 2023-01-11 12:35 | disposition home or self-care (01) ==
PROVIDERS: PCP Nurse Practitioner; Visit Provider Nurse Practitioner
DX: I10 Essential (primary) hypertension (principal); E11.9 Type 2 diabetes mellitus without complications
CPT/HCPCS: 36415; 80053; 83036

== ENCOUNTER 2023-03-05 12:45 | Emergency (ER) | payer MEDICARE, SELFPAY ==
[2023-03-05 13:01] VITALS: BP 114/101; PULSE 76; RESP 18; TEMP 36.7; O2SAT 94
--- NOTE | 2023-03-05 13:06 | ED.EYEPROB ---
HPI - Eye Problem General Chief complaint: Eye Problems Stated complaint: bilateral eye discharge Time Seen by Provider: 03/05/23 13:07 Source: patient Mode of arrival: ambulatory Limitations: no limitations History of Present Illness HPI Narrative: Patient is a 82-year-old male presents with bilateral eye redness and Patient to follow-up in 2-3 days with primary care provider. Patient states symptoms started Sunday and have worsened. Patient states eyes are matted shut in the morning. Patient reports vision feels like there is a film on his eye but resolved with blinking. Denies any pain or burning, or blurred vision. Related Data Home Medications Medication Instructions Recorded Confirmed aspirin 81 mg tablet,delayed 81 mg PO DAILY 09/24/21 02/07/23 release finasteride 5 mg tablet 5 mg PO DAILY 09/24/21 02/07/23 furosemide 40 mg tablet 40 mg PO DAILY 09/24/21 02/07/23 lisinopril 20 mg tablet 20 mg PO DAILY 09/24/21 02/07/23 ibuprofen 400 mg tablet 400 mg PO Q8H PRN Pain (Scale 02/12/22 02/07/23 Score 1-3) ergocalciferol (vitamin D2) 1 cap PO WEEKLY 03/11/22 02/07/23 escitalopram oxalate 10 mg tablet 10 mg PO DAILY 03/11/22 02/07/23 omega 2-kha-zqn-fish oil 60 mg-90 500 cap PO DAILY 03/11/22 02/07/23 mg-500 mg capsule (Fish Oil) tamsulosin 0.4 mg capsule 0.4 mg PO DAILY 11/13/22 02/07/23 Allergies Allergy/AdvReac Type Severity Reaction Status Date / Time niacin Allergy Unknown Verified 02/07/23 07:53 Review of Systems Review of Systems: All systems reviewed & are unremarkable except as noted in HPI and below Constitutional: Constitutional: Denies body ache(s), Denies fever(s), Denies headache(s), Denies malaise and Denies weakness Eyes: Eyes: Denies blurry vision, Reports eye discharge, Reports irritation, Denies itchy eyes, Denies loss of vision and Denies eye pain ENT: Denies otalgia, Denies headache(s), Denies nasal discharge, Denies sinus pain and Denies sore throat Cardiovascular: Cardiovascular: Denies chest pain, Denies irregular heart rhythm and Denies dyspnea Respiratory: Respiratory: Denies dyspnea Gastrointestinal: Gastrointestinal: Denies abdominal pain, Denies diarrhea, Denies nausea and Denies vomiting Musculoskeletal: Musculoskeletal: Denies back pain, Denies myalgias and Denies arthralgias Integumentary/Breasts: Skin/Breast: Denies pruritus and Denies rash Neurologic: Denies headache(s), Denies loss of vision and Denies weakness Psychiatric: Psychiatric: Reports no additional psychiatric complaints Allergic/Immunologic: Allergic/Immunologic: Reports itchy eyes PMFSH Past Medical History Medical History Actinic keratosis Benign prostatic hyperplasia Bilateral primary osteoarthritis of hip (~06/2021) Bladder stones Chronic kidney disease, stage 3 Baseline creatinine ranges between 1.40 and 1.60. 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 Urinary retention with incomplete bladder emptying Wears glasses Surgical History Surgical History History of arthroplasty of left knee History of arthroscopy of both knees History of colonoscopy with polypectomy History of cystoscopy History of laparoscopic cholecystectomy (2013) History of lithotripsy History of nasal septoplasty (2006) With bilateral inferior turbinectomy. History of transurethral resection of prostate History of ventral hernia repair (2005) Status post excision of lipoma Anterior abdominal wall. Status post hammertoe correction OR as OP on Rt. 2nd and 5th MCP joints approx. 2017 Family History Family History Father Acute myocardial inf
== END 2023-03-05 13:18 | disposition home or self-care (01) ==
PROVIDERS: Emergency Provider Nurse Practitioner Family
DX: H10.9 Unspecified conjunctivitis (principal); Z87.891 Personal history of nicotine dependence; I12.9 Hypertensive chronic kidney disease with stage 1 through stage 4 chronic kidney disease, or unspecified chronic kidney disease; E11.22 Type 2 diabetes mellitus with diabetic chronic kidney disease; N18.30 Chronic kidney disease, stage 3 unspecified; N40.0 Benign prostatic hyperplasia without lower urinary tract symptoms; M16.0 Bilateral primary osteoarthritis of hip; M19.012 Primary osteoarthritis, left shoulder; E78.5 Hyperlipidemia, unspecified; K21.9 Gastro-esophageal reflux disease without esophagitis; Z85.828 Personal history of other malignant neoplasm of skin; Z96.653 Presence of artificial knee joint, bilateral; Z79.82 Long term (current) use of aspirin
CPT/HCPCS: 99213; G0463

== ENCOUNTER 2023-05-17 07:00 | Outpatient (NON) | payer MEDICARE, SELFPAY | END 2023-05-17 07:01 | disposition home or self-care (01) | LOC: ANHLAB 05-18 10:59 | PROVIDERS: Visit Provider Nurse Practitioner | DX: C44.329 Squamous cell carcinoma of skin of other parts of face (principal) | CPT/HCPCS: 88305 ==

== ENCOUNTER 2023-07-23 15:15 | Outpatient (NON) | payer MEDICARE, SELFPAY | END 2023-07-23 15:16 | disposition home or self-care (01) | LOC: ANHLAB 15:15 | PROVIDERS: PCP Nurse Practitioner; Visit Provider Nurse Practitioner | DX: C44.92 Squamous cell carcinoma of skin, unspecified (principal) | CPT/HCPCS: 88305; 88331 ==

== ENCOUNTER 2023-08-04 10:16 | Outpatient (CLI) | payer MEDICARE, SELFPAY ==
[2023-08-04 11:43] LABS: Hemoglobin A1C 6.6 % (<5.7)
[2023-08-04 11:46] LABS: Alanine Aminotransferase 22 U/L (6-50); Albumin Level 3.6 g/dL (3.5-5.1); Alkaline Phosphatase 84 U/L (38-126); Anion Gap 5 mmol/L (8-16); Aspartate Amino Transferase 20 U/L (17-59); Bilirubin,Total 0.3 mg/dL (0.2-1.3); Blood Urea Nitrogen 35 mg/dL (9-20); Calcium 9.6 mg/dL (8.4-10.2); Carbon Dioxide 29 mmol/L (22-30); Chloride 107 mmol/L (98-107); Estimated Glomerular Filt Rate > 60; Glucose 98 mg/dL (65-110); Potassium 4.8 mmol/L (3.4-5.0); Sodium 141 mmol/L (137-145)
== END 2023-08-04 10:17 | disposition home or self-care (01) ==
PROVIDERS: PCP Nurse Practitioner; Visit Provider Nurse Practitioner
DX: E78.5 Hyperlipidemia, unspecified (principal); E11.9 Type 2 diabetes mellitus without complications
CPT/HCPCS: 36415; 80053; 83036

== ENCOUNTER 2024-03-07 08:17 | Outpatient (CLI) | payer MEDICARE, SELFPAY ==
[2024-03-07 08:54] LABS: Alanine Aminotransferase 25 U/L (6-50); Albumin Level 3.8 g/dL (3.5-5.1); Alkaline Phosphatase 85 U/L (38-126); Anion Gap 8 mmol/L (4-12); Aspartate Amino Transferase 21 U/L (17-59); Bilirubin,Total 0.5 mg/dL (0.2-1.3); Blood Urea Nitrogen 37 mg/dL (9-20); Calcium 9.4 mg/dL (8.4-10.2); Carbon Dioxide 30 mmol/L (22-30); Chloride 103 mmol/L (98-107); Cholesterol 136 mg/dL (0-200); Estimated Glomerular Filt Rate > 60; Glucose 105 mg/dL (65-110); HDL Direct 39 mg/dL; Potassium 4.3 mmol/L (3.4-5.0); Sodium 141 mmol/L (137-145); Triglycerides 102 mg/dL (<150)
[2024-03-07 09:05] LABS: LDL Cholesterol Direct 80 mg/dL
[2024-03-07 09:15] LABS: Hemoglobin A1C 6.8 % (<5.7)
== END 2024-03-07 08:18 | disposition home or self-care (01) ==
PROVIDERS: PCP Nurse Practitioner; Visit Provider Nurse Practitioner
DX: E11.9 Type 2 diabetes mellitus without complications (principal); E78.5 Hyperlipidemia, unspecified
CPT/HCPCS: 36415; 80053; 80061; 83036

== ENCOUNTER 2024-04-17 16:40 | Emergency (ER) | payer MEDICARE, SELFPAY ==
[2024-04-17] VITALS (13 sets, daily range): BP systolic 122–155; BP diastolic 62–97; PULSE 75–84; RESP 13–20; TEMP 36.9; O2SAT 92–98
--- NOTE | ~2024-04-17 | XR_ITS ---
EXAMINATION: XR chest 1V DATE: 04/17/2024 17:46 INDICATION: Fall. TECHNIQUE: A single frontal view of the chest was obtained. COMPARISON: Chest single view 03/13/2022, CT abdomen and pelvis 04/01/22 FINDINGS: The lung volumes are small. There are airspace opacities at the lung bases. No pleural effu alfonzo or pneumothorax. Cardiomegaly is noted. A device overlying the heart may be an implant. There ar e prominent pericardial fat pads. Surgical clips in the right upper quadrant are likely from cholecys tectomy. IMPRESSION: 1. Small lung volumes with airspace opacities at the lung bases, consistent with atelectasis versus p neumonia. 2. Cardiomegaly. Reviewed, dictated and finalized at location A. IMPRESSION: 1. Small lung volumes with airspace opacities at the lung bases, consistent wit h atelectasis versus pneumonia. 2. Cardiomegaly.
--- NOTE | ~2024-04-17 | XR_ITS ---
EXAMINATION: XR hip LT 2V w AP pelvis DATE: 04/17/2024 17:44 INDICATION: Left hip pain. Fall. TECHNIQUE: An anteroposterior view of the pelvis and 2 views of left hip were obtained. COMPARISON: Pelvis and left hip radiographs 09/11/22 FINDINGS: Bone alignment is normal. No fracture. There is advanced left hip osteoarthritis including bone volume loss of the femoral head and acetabulum. There is moderate right hip osteoarthritis. Ther e is severe lumbar spondylosis. IMPRESSION: 1. Moderate right hip osteoarthritis and advanced left hip osteoarthritis. Reviewed, dictated and finalized at location A.
--- NOTE | ~2024-04-17 | CT_ITS ---
EXAMINATION: CT pelvis wo con DATE: 04/17/2024 19:12 INDICATION: Left hip pain. TECHNIQUE: Computed tomography (CT) of the pelvis was performed without intravenous contrast. Automat ed exposure control and iterative reconstruction technique were employed. The dose-length product was 870.90 mGy-cm. COMPARISON: CT abdomen and pelvis 04/01/2022 FINDINGS: The bladder is distended and demonstrates diverticula. The prostate is mildly enlarged. The re are bilateral inguinal hernias containing fat. Stool distends the rectum. There is diverticulosis of the colon without evidence of diverticulitis. There is severe right hip osteoarthritis. There is a dvanced left hip osteoarthritis including bone volume loss of the acetabulum and femoral head. There is ankylosis of the sacroiliac joints. IMPRESSION: 1. Severe right hip osteoarthritis and advanced left hip osteoarthritis. 2. Bilateral inguinal hernias containing fat. Reviewed, dictated and finalized at location A.
--- NOTE | 2024-04-17 17:13 | ED.FALL ---
HPI - Fall General Chief Complaint: Fall Stated Complaint: fall Time Seen by Provider: 04/17/24 17:02 Source: patient Mode of arrival: ambulatory Limitations: no limitations History of Present Illness HPI Narrative: This is a an 83-year-old male with PMH of AFib, CHF, T2 dm who presents to the ED via EMS from assisted living for chief complaint of left hip pain following a fall that happened 1 week ago. Patient reports that he fell while trying to transition from wheelchair to bed. States that he landed on his left hip. Denies any further site of pain or injury. Denies LOC. denies numbness, weakness, recent illness, fevers, chills, chest pain, shortness of breath, abdominal pain, nausea, vomiting, diarrhea or urinary symptoms. Related Data Home Medications Medication Instructions Recorded Confirmed aspirin 81 mg tablet,delayed 81 mg PO DAILY 09/24/21 03/07/24 release finasteride 5 mg tablet 5 mg PO DAILY 09/24/21 03/07/24 furosemide 40 mg tablet 40 mg PO DAILY 09/24/21 03/07/24 lisinopril 20 mg tablet 20 mg PO DAILY 09/24/21 03/07/24 ibuprofen 400 mg tablet 400 mg PO Q8H PRN Pain (Scale 02/12/22 03/07/24 Score 1-3) ergocalciferol (vitamin D2) 1 cap PO WEEKLY 03/11/22 03/07/24 escitalopram oxalate 10 mg tablet 10 mg PO DAILY 03/11/22 03/07/24 tamsulosin 0.4 mg capsule 0.4 mg PO DAILY 11/13/22 03/07/24 amlodipine 10 mg tablet 10 mg PO DAILY 08/24/23 03/07/24 Allergies Allergy/AdvReac Type Severity Reaction Status Date / Time niacin Allergy Unknown Verified 03/07/24 07:16 Review of Systems Review of Systems: All systems as dictated in [facility] Past Medical History Medical History (Reviewed 03/07/24 @ 07:16 by Enedina Chakraborty [facility] [facility]) Actinic keratosis Benign prostatic hyperplasia Bilateral primary osteoarthritis of hip (~06/2021) Bladder stones Chronic kidney disease, stage 3 Baseline creatinine ranges between 1.40 and 1.60. 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 Urinary retention with incomplete bladder emptying Wears glasses Surgical History Surgical History (Reviewed 03/07/24 @ 07:16 by Enedina Chakraborty [facility]) History of arthroplasty of left knee History of arthroscopy of both knees History of colonoscopy with polypectomy History of cystoscopy History of laparoscopic cholecystectomy (2013) History of lithotripsy History of nasal septoplasty (2006) With bilateral inferior turbinectomy. History of transurethral resection of prostate History of ventral hernia repair (2005) Status post excision of lipoma Anterior abdominal wall. Status post hammertoe correction OR as OP on Rt. 2nd and 5th MCP joints approx. 2017 Family History Family History (Reviewed 03/07/24 @ 07:16 by Enedina Chakraborty [facility] [facility]) Father Acute myocardial infarction Mother Breast cancer Hypertension Sibling Leukemia Sibling Lung cancer Other Arthritis Social History Social History (Reviewed 03/07/24 @ 07:16 by Enedina Chakraborty [facility]) Social History: Surrogate decision maker: Kishore Eliseyrkerry Griffiths, son. Code status: Full code. Smoking status: Former smoker Tobacco type: cigarettes Second hand tobacco smoke exposure: Yes Alcohol intake: never Substance use: never Substance use type: does not use Lack of Transportation: No Lack of Food: Never True Current Housing: I Have Housing Concerned About Future Housing: No Difficulty Paying Gas/Electric Bills: No Difficulty Paying for Meds: No Currently Unemployed: No Education: High School Diploma/GED Difficulty w/ Childcare or Family Care: No Additional living arrangements comments: The patient lives in his own home in [place] though he is currently at [facility] for rehab. 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
[2024-04-17] MEDS: ONDANSETRON INJ 4 MG/2 ML VIAL IV PUSH (18:36)
[2024-04-17] MEDS: MORPHINE SULFATE (*CRX) 4 MG/ML INJ IV PUSH (18:41)
[2024-04-17 19:25] LABS: Basophils Percent Auto 0.4 % (0.2-1.2); Eosinophils Absolute Auto 0.1 K/mm3 (0-0.3); Eosinophils Percent Auto 0.6 % (0-4.4); Hematocrit 43.5 % (42.0-52.0); Hemoglobin 13.1 g/dL (14.0-18.0); Immature Granulocyte Absolute 0.11 K/mm3 (0.00-0.031); Lymphocytes Absolute Auto 0.54 K/mm3 (0.9-3.2); Lymphocytes Percent Auto 5.1 % (18.3-44.2); Mean Corpuscular HGB Conc 30.1 g/dl (32-36); Mean Corpuscular Hemoglobin 27.8 pg (26-34); Mean Corpuscular Volume 92.2 fl (80-100); Mean Platelet Volume 10.5 fl (7.4-10.4); Monocytes Absolute Auto 0.7 K/mm3 (0.1-0.6); Monocytes Percent Auto 6.9 % (2.6-8.5); Neutrophils Absolute Auto 9.1 K/mm3 (1.3-6.7); Platelet Count Result 217 k/mm3 (150-375); Red Blood Count 4.72 M/mm3 (4.6-6.20); Red Cell Distribution Width 18.7 % (11.5-14.5); White Blood Count 10.6 K/mm3 (4.5-10.0)
[2024-04-17 19:37] LABS: Alanine Aminotransferase 24 U/L (6-50); Albumin Level 3.4 g/dL (3.5-5.1); Alkaline Phosphatase 69 U/L (38-126); Anion Gap 7 mmol/L (4-12); Aspartate Amino Transferase 26 U/L (17-59); Bilirubin,Total 0.8 mg/dL (0.2-1.3); Blood Urea Nitrogen 39 mg/dL (9-20); Calcium 9.3 mg/dL (8.4-10.2); Carbon Dioxide 29 mmol/L (22-30); Chloride 103 mmol/L (98-107); Estimated CRCL calculation 69 ml/min; Estimated Glomerular Filt Rate > 60; Glucose 124 mg/dL (65-110); Potassium 4.5 mmol/L (3.4-5.0); Sodium 139 mmol/L (137-145)
[2024-04-17 19:39] LABS: INR 1.1; Prothrombin Time 14.2 Seconds (11.1-14.7)
--- NOTE | 2024-04-17 21:28 | PC.NURSE ---
attempted to call [facility] in [place] twice with no success. unable to leave a message with call back number due to not having mailbox set up.
== END 2024-04-17 21:00 ==
PROVIDERS: Emergency Provider Physician Assistant; PCP Nurse Practitioner
DX: I48.91 Unspecified atrial fibrillation (principal); E11.22 Type 2 diabetes mellitus with diabetic chronic kidney disease; N18.30 Chronic kidney disease, stage 3 unspecified; I13.0 Hypertensive heart and chronic kidney disease with heart failure and stage 1 through stage 4 chronic kidney disease, or unspecified chronic kidney disease; I50.9 Heart failure, unspecified; N40.1 Benign prostatic hyperplasia with lower urinary tract symptoms; R33.8 Other retention of urine; M16.0 Bilateral primary osteoarthritis of hip; M19.012 Primary osteoarthritis, left shoulder; K21.9 Gastro-esophageal reflux disease without esophagitis; Z96.652 Presence of left artificial knee joint; Z86.010 Personal history of colon polyps; Z87.442 Personal history of urinary calculi; Z85.828 Personal history of other malignant neoplasm of skin; Z87.891 Personal history of nicotine dependence; Z90.49 Acquired absence of other specified parts of digestive tract; Z90.79 Acquired absence of other genital organ(s); Z79.82 Long term (current) use of aspirin; Z79.899 Other long term (current) drug therapy
CPT/HCPCS: 36415; 71045; 72192; 73502; 80053; 85025; 85610; 96374; 96375; 99284; J2270; J2405